=== PATIENT | male | born 1955 | race Caucasian/White ===

== ENCOUNTER → 2016-08-26 | Outpatient (REF) | payer OTHER ==
[~2016-08-26] MED LIST: /GLIM2TA OR; /LAMO15TA OR; /QUIN20TA OR; ACTO45TA OR; BYETTA SQ; DO NOT TAKE; GLUC850T OR; HYDR25TA6 OR; INSULANT SC; JANUVIA OR; LITH300T2 OR; LITH600C OR; LITHIUM CARBONATE; LITHIUM CARBONATE OR; [UNRECOGNIZED DRUG - REMARK]
== END ==
LOC: M LAB REF 13:16
PROVIDERS: ATTEND Physician Assistant Medical
DX: R30.0 Dysuria (principal)

== ENCOUNTER → 2016-10-14 | Outpatient (REF) | payer OTHER ==
[2016-10-14 12:53] LABS: ANION GAP 9 MEQ/L (8-16); BLOOD UREA NITROGEN 21 MG/DL (7-18); CALCIUM LEVEL 9.1 MG/DL (8.8-10.2); CARBON DIOXIDE LEVEL 28 MEQ/L (21-32); CHLORIDE LEVEL 103 MEQ/L (98-107); CHOLESTEROL LEVEL 231 MG/DL (<200); CREATININE FOR GFR 1.26 MG/DL (0.70-1.30); GLOMERULAR FILTRATION RATE > 60.0 (>49); GLUCOSE, FASTING 144 MG/DL (80-110); POTASSIUM SERUM 4.2 MEQ/L (3.5-5.1); SODIUM LEVEL 140 MEQ/L (136-145); TRIGLYCERIDES LEVEL 283 MG/DL (<150)
== END ==
LOC: M LABDRAW1 11:49
PROVIDERS: ATTEND Physician Assistant Medical
DX: E78.5 Hyperlipidemia, unspecified (principal); E11.8 Type 2 diabetes mellitus with unspecified complications; Z11.59 Encounter for screening for other viral diseases

== ENCOUNTER → 2017-03-09 | Outpatient (REF) | payer OTHER ==
[~2017-03-09] MED LIST changes: +ALBU83IN INH; +ALPH600C PO; +ASPI81TA85 PO; +PANT20TA PO; +TOUJ1.2I SC
[2017-03-09 14:49] LABS: ANION GAP 7 MEQ/L (8-16); BLOOD UREA NITROGEN 20 MG/DL (7-18); CALCIUM LEVEL 9.3 MG/DL (8.8-10.2); CARBON DIOXIDE LEVEL 26 MEQ/L (21-32); CHLORIDE LEVEL 102 MEQ/L (98-107); CHOLESTEROL LEVEL 203 MG/DL (<200); CREATININE FOR GFR 1.29 MG/DL (0.70-1.30); GLOMERULAR FILTRATION RATE > 60.0 (>49); GLUCOSE, FASTING 153 MG/DL (80-110); POTASSIUM SERUM 4.8 MEQ/L (3.5-5.1); SODIUM LEVEL 135 MEQ/L (136-145); TRIGLYCERIDES LEVEL 195 MG/DL (<150)
[2017-03-09 15:19] LABS: HEP C VIRUS AB SCREEN MEDICARE 0.1 INDEX (<0.8)
== END ==
LOC: M LABDRAW1 13:19
PROVIDERS: ATTEND Physician Assistant Medical
DX: E78.5 Hyperlipidemia, unspecified (principal); E11.8 Type 2 diabetes mellitus with unspecified complications; Z11.59 Encounter for screening for other viral diseases
CPT/HCPCS: 36415; 80048; 80061; 82043; G0472

== ENCOUNTER 2017-06-10 16:12 | Emergency (ER) | payer OTHER ==
[~2017-06-10] VITALS: Ht 180.3 cm; Wt 112.7 kg
[~2017-06-10 16:12] MED LIST changes: -ALBU83IN INH; -ALPH600C PO; -ASPI81TA85 PO; -PANT20TA PO; -TOUJ1.2I SC
[2017-06-10] MEDS ORDERED: ASPIRIN 81 MG CHEW TABLET PO ONE (16:45)
[2017-06-10 17:00] LABS: BASO % 0.3 % (0.0-1.0); EOS # 0.4 10^3/uL (0.0-0.50); EOS % 2.9 % (0.0-3.0); IMMATURE GRANULOCYTE % 0.4 % (0-0); LYMPH # 1.2 10^3/uL (1.5-4.5); LYMPH % 9.1 % (24.0-44.0); MEAN CORPUSCULAR HEMOGLOBIN 30.1 pg (27.0-33.0); MEAN CORPUSCULAR HGB CONC 32.7 g/dl (32.0-36.5); MONO # 1.1 10^3/uL (0.0-0.8); MONO % 8.3 % (0.0-5.0); PLATELET COUNT, AUTOMATED 268 10^3/uL (150-450); RED CELL DISTRIBUTION WIDTH 13.7 % (11.5-14.5); WHITE BLOOD COUNT 12.6 10^3/uL (4.0-10.0)
[2017-06-10] MEDS ORDERED: ASPIRIN 325 MG TAB PO ONE (17:00)
[2017-06-10] MEDS ORDERED: ALPH600C PO (17:03)
[2017-06-10] MEDS ORDERED: TOUJ1.2I SC (17:03)
[2017-06-10] MEDS ORDERED: ASPI81TA85 PO (17:03)
[2017-06-10] MEDS ORDERED: PANT20TA PO (17:04)
[2017-06-10] MEDS ORDERED: ALBU83IN INH (17:06)
[2017-06-10 17:22] LABS: INR 0.91
[2017-06-10 17:42] LABS: ANION GAP 9 MEQ/L (8-16); BLOOD UREA NITROGEN 20 MG/DL (7-18); CALCIUM LEVEL 9.4 MG/DL (8.8-10.2); CARBON DIOXIDE LEVEL 26 MEQ/L (21-32); CHLORIDE LEVEL 104 MEQ/L (98-107); CREATININE FOR GFR 1.19 MG/DL (0.70-1.30); GLOMERULAR FILTRATION RATE > 60.0 (>49); GLUCOSE, FASTING 156 MG/DL (80-110); POTASSIUM SERUM 4.6 MEQ/L (3.5-5.1); SODIUM LEVEL 139 MEQ/L (136-145)
--- NOTE | 2017-06-10 17:47 | REP ---
PORTABLE CHEST: AP portable view of the chest was performed and compared to prior study of 06/23/2015. There is mild elevation of the right hemidiaphragm. There is mild stable bibasilar fibro atelectatic change. There is no acute infiltrate. Heart is not significantly enlarged. Mediastinal silhouette is unchanged. There are multiple sternal wires present. IMPRESSION: No acute infiltrate. Signed by Burt Pollard MD 06/10/2017 07:51 P
[2017-06-10] MEDS ORDERED: HEPARIN DRIP 25,000 UNITS in APPROPRIATE DILUENT 1 EA IV SCH (18:39)
[2017-06-10] MEDS ORDERED: CLOPIDOGREL 300 MG TAB (PLAVIX) PO STA (18:39)
[2017-06-10] MEDS ORDERED: METOPROLOL SUCC *XL* 25MG TAB (TopROL *XL*) PO ONE (18:45)
[2017-06-10] MEDS ORDERED: HEPARIN SOD (PORCINE) 5000 UNITS/ML VIAL IV ONE (18:45)
[2017-06-10 19:06] VITALS: BP 193/90
[2017-06-10 19:35] VITALS: BP 183/86
--- NOTE | 2017-06-11 10:31 | ECGEPIP ---
Stationary ECG Study [facility] - ED Test Date: 2017-06-10 Pat Name: JOSETTE MONTELONGO Department: Room: - Gender: M Stain Maker: AF : 1955 Requested By: TOMER Brandon Order Number: [id number] Reading MD: Darlene Landrum Measurements Intervals [place] Rate: 74 P: 47 HI: 217 QRS: 31 QRSD: 116 T: 136 QT: 340 QTc: 377 Interpretive Statements SINUS RHYTHM WITH FIRST DEGREE AV BLOCK MODERATE INTRAVENTRICULAR CONDUCTION DELAY ST DEVIATION AND MODERATE T-WAVE ABNORMALITY, CONSIDER ANTEROLATERAL ISCHEMIA, NEW COMPARED 06/23/15 Electronically Signed On 06-11-2017 10:31:33 EDT by Darlene Landrum
== END 2017-06-10 19:40 | disposition short-term general hospital (02) ==
LOC: M ED 16:12
DX: I21.4 Non-ST elevation (NSTEMI) myocardial infarction (principal); I25.2 Old myocardial infarction; E11.9 Type 2 diabetes mellitus without complications; I10 Essential (primary) hypertension; E78.4 Other hyperlipidemia; Z79.4 Long term (current) use of insulin; Z98.61 Coronary angioplasty status

== ENCOUNTER → 2017-07-24 | Outpatient (REF) | payer OTHER ==
[~2017-07-24] MED LIST changes: +ALBU83IN INH; +ALPH600C PO; +ASPI81TA85 PO; +PANT20TA PO; +TOUJ1.2I SC
== END ==
LOC: M LABDRAW1 11:53
PROVIDERS: ATTEND Physician Assistant Medical
DX: E78.5 Hyperlipidemia, unspecified (principal)

== ENCOUNTER → 2017-12-09 | Outpatient (REF) | payer OTHER ==
[2017-12-09 12:00] LABS: BASO # 0.1 10^3/uL (0.0-0.2); BASO % 0.4 % (0.0-1.0); EOS # 0.3 10^3/uL (0.0-0.50); EOS % 2.5 % (0.0-3.0); HEMOGLOBIN 13.9 g/dl (13.5-17.5); IMMATURE GRANULOCYTE % 0.4 % (0-3.0); LYMPH # 0.9 10^3/uL (1.5-4.5); LYMPH % 8.1 % (24.0-44.0); MEAN CORPUSCULAR HEMOGLOBIN 28.6 pg (27.0-33.0); MEAN CORPUSCULAR HGB CONC 31.6 g/dl (32.0-36.5); MEAN CORPUSCULAR VOLUME 90.5 fl (80.0-96.0); MONO # 0.8 10^3/uL (0.0-0.8); MONO % 7.1 % (0.0-5.0); NEUTROPHILS # 9.4 10^3/uL (1.8-7.7); NEUTROPHILS % 81.5 % (36.0-66.0); PLATELET COUNT, AUTOMATED 269 10^3/uL (150-450); RED BLOOD COUNT 4.86 10^6/uL (4.30-6.10); RED CELL DISTRIBUTION WIDTH 13.8 % (11.5-14.5); WHITE BLOOD COUNT 11.5 10^3/uL (4.0-10.0)
[2017-12-09 12:29] LABS: FREE T4 0.79 NG/DL (0.76-1.46)
== END ==
LOC: M LABDRAW1 11:26
DX: R53.83 Other fatigue (principal)

== ENCOUNTER → 2017-12-19 | Outpatient (CLI) | payer OTHER ==
[2017-12-19 09:43] LABS: FERRITIN 30 NG/ML (26-388); IRON (FE) 83 UG/DL (65-175); PERCENT SATURATION 19.9 % (19.7-50.0); PSA SCREENING 3.39 NG/ML (< 4.0); TOTAL IRON BINDING CAPACITY 418 UG/DL (250-450)
[2017-12-21 10:31] LABS: THYROID PEROXIDASE ANTIBODY 33.4 U/ML (<60.0); VITAMIN B12 LEVEL 621 PG/ML
[2017-12-21 10:32] LABS: FOLATE > 24.0 NG/ML
== END ==
LOC: M LAB 08:37
DX: R53.83 Other fatigue (principal); R63.1 Polydipsia; R35.0 Frequency of micturition
CPT/HCPCS: 82746

== ENCOUNTER → 2017-12-31 | Outpatient (REF) | payer OTHER ==
[2017-12-31 13:40] LABS: APPEARANCE, URINE CLEAR (CLEAR); BACTERIA, URINE AUTO NEGATIVE (NEGATIVE); BILIRUBIN, URINE AUTO NEGATIVE (NEGATIVE); BLOOD, URINE BLOOD NEGATIVE (NEGATIVE); COLOR, URINE STRAW (YELLOW); GLUCOSE, URINE (UA) AUTO 3+ mg/dL (NEGATIVE); KETONE, URINE AUTO NEGATIVE (NEGATIVE); LEUKOCYTE ESTERASE, URINE AUTO NEGATIVE (NEGATIVE); MUCUS, URINE SMALL (NEGATIVE); NITRITE, URINE AUTO NEGATIVE (NEGATIVE); PROTEIN, URINE AUTO NEGATIVE (NEGATIVE); RBC, URINE AUTO 0 /HPF (0-3); SPECIFIC GRAVITY URINE AUTO 1.002 (1.002-1.035); SQUAMOUS EPITHELIAL CELL UR AU 0 /HPF (0-6); UROBILINOGEN, URINE AUTO 0.2 mg/dL (0.0-2.0); WBC, URINE AUTO 1 /HPF (0-3)
== END ==
LOC: M SMT 13:03
DX: R35.0 Frequency of micturition (principal)

== ENCOUNTER → 2018-01-27 | Outpatient (REF) | payer OTHER ==
[2018-01-27 13:14] LABS: APPEARANCE, URINE CLEAR (CLEAR); BACTERIA, URINE AUTO NEGATIVE (NEGATIVE); BILIRUBIN, URINE AUTO NEGATIVE (NEGATIVE); BLOOD, URINE BLOOD NEGATIVE (NEGATIVE); COLOR, URINE STRAW (YELLOW); GLUCOSE, URINE (UA) AUTO 3+ mg/dL (NEGATIVE); KETONE, URINE AUTO NEGATIVE (NEGATIVE); LEUKOCYTE ESTERASE, URINE AUTO NEGATIVE (NEGATIVE); NITRITE, URINE AUTO NEGATIVE (NEGATIVE); PROTEIN, URINE AUTO NEGATIVE (NEGATIVE); RBC, URINE AUTO 0 /HPF (0-3); SPECIFIC GRAVITY URINE AUTO 1.006 (1.002-1.035); SQUAMOUS EPITHELIAL CELL UR AU 0 /HPF (0-6); UROBILINOGEN, URINE AUTO 0.2 mg/dL (0.0-2.0); WBC, URINE AUTO 2 /HPF (0-3)
== END ==
LOC: M SMT 12:56
DX: R33.9 Retention of urine, unspecified (principal); R30.0 Dysuria

== ENCOUNTER → 2018-02-22 | Outpatient (REF) | payer OTHER | LOC: M LAB REF 17:34 | DX: R35.0 Frequency of micturition (principal) ==

== ENCOUNTER → 2018-03-04 | Outpatient (REF) | payer OTHER | LOC: M LAB REF 13:28 | DX: R35.0 Frequency of micturition (principal) ==

== ENCOUNTER → 2018-04-08 | Outpatient (REF) | payer OTHER ==
[2018-04-08 14:37] LABS: HEMATOCRIT 43.7 % (42.0-52.0); MEAN CORPUSCULAR HEMOGLOBIN 29.5 pg (27.0-33.0); MEAN CORPUSCULAR VOLUME 92.2 fl (80.0-96.0); PLATELET COUNT, AUTOMATED 259 10^3/uL (150-450); RED BLOOD COUNT 4.74 10^6/uL (4.30-6.10); RED CELL DISTRIBUTION WIDTH 13.6 % (11.5-14.5); WHITE BLOOD COUNT 11.2 10^3/uL (4.0-10.0)
[2018-04-08 14:59] LABS: GLOMERULAR FILTRATION RATE 54.8 (>49); LITHIUM LEVEL 0.97 MEQ/L (0.60-1.20)
[2018-04-08 14:59] LABS: BLOOD UREA NITROGEN 26 MG/DL (7-18)
== END ==
LOC: M LABDRAW1 13:58
DX: Z79.899 Other long term (current) drug therapy (principal)

== ENCOUNTER → 2018-07-06 | Outpatient (REF) | payer OTHER ==
[2018-07-06 10:41] LABS: CHOLESTEROL LEVEL 193 MG/DL (<200); CHOLESTEROL RISK RATIO 4.595 (<5); HDL CHOLESTEROL 42 MG/DL (>40); LDL CHOLESTEROL 110 MG/DL (<100); NON-HDL-C 151 MG/DL; TRIGLYCERIDES LEVEL 207 MG/DL (<150)
== END ==
LOC: M LABDRAW1 10:08
DX: E78.5 Hyperlipidemia, unspecified (principal)

== ENCOUNTER → 2018-09-02 | Outpatient (REF) | payer OTHER ==
[~2018-09-02] MED LIST changes: -PANT20TA PO; +PANT20TA2 PO
[2018-09-02 18:40] LABS: BLOOD UREA NITROGEN 16 MG/DL (7-18); CALCIUM LEVEL 9.4 MG/DL (8.8-10.2); CARBON DIOXIDE LEVEL 29 MEQ/L (21-32); CHLORIDE LEVEL 104 MEQ/L (98-107); CREATININE FOR GFR 1.25 MG/DL (0.70-1.30); GLOMERULAR FILTRATION RATE > 60.0 (>49); GLUCOSE, FASTING 103 MG/DL (70-100); POTASSIUM SERUM 4.7 MEQ/L (3.5-5.1); SODIUM LEVEL 138 MEQ/L (136-145)
== END ==
LOC: M LABDRWAD 17:17
PROVIDERS: ATTEND Specialist
DX: R33.9 Retention of urine, unspecified (principal)

== ENCOUNTER → 2018-09-07 | Outpatient (CLI) | payer OTHER ==
--- NOTE | 2018-09-08 08:19 | REP ---
Clinical: Urinary retention. Technique: Real time vázquez scale ultrasound examination using curved array transducer. Findings: The bilateral kidneys are mildly echogenic with increased central medullary fat suggesting chronic medical renal disease. Renovascular calcifications are also suggested bilaterally. No hydronephrosis, obvious nephrolithiasis, cystic or renal mass lesions are identified. Right kidney measures 12.3 x 5.8 x 5.1 cm. Left kidney measures 12.6 x 4.9 x 6.4 cm. The prostate gland is enlarged and measures 4.1 x 4.2 x 5.9 cm. The bladder is grossly unremarkable currently measuring 11.2 x 5.9 x 7.2 cm. Impression: Findings consistent with chronic medical renal disease. Electronically Signed by Howie Dyer MD 09/08/2018 08:10 A
== END ==
LOC: M RAD 09:58
PROVIDERS: ATTEND Specialist
DX: N18.9 Chronic kidney disease, unspecified (principal); R33.9 Retention of urine, unspecified

== ENCOUNTER → 2018-12-29 | Outpatient (REF) | payer OTHER ==
[~2018-12-29] MED LIST changes: -/GLIM2TA OR; -/LAMO15TA OR; -/QUIN20TA OR; +ACCU1TAB2 OR; +AMAR1TAB5 OR; +LAMI1TAB8 OR
[2018-12-29 11:13] LABS: HEMATOCRIT 45.1 % (42.0-52.0); HEMOGLOBIN 14.4 g/dl (13.5-17.5); MEAN CORPUSCULAR HEMOGLOBIN 29.3 pg (27.0-33.0); MEAN CORPUSCULAR HGB CONC 31.9 g/dl (32.0-36.5); MEAN CORPUSCULAR VOLUME 91.9 fl (80.0-96.0); PLATELET COUNT, AUTOMATED 279 10^3/uL (150-450); RED BLOOD COUNT 4.91 10^6/uL (4.30-6.10); WHITE BLOOD COUNT 14.6 10^3/uL (4.0-10.0)
[2018-12-29 12:52] LABS: BLOOD UREA NITROGEN 25 MG/DL (7-18); CREATININE FOR GFR 1.24 MG/DL (0.70-1.30); GLOMERULAR FILTRATION RATE > 60.0 (>49)
[2018-12-29 13:15] LABS: LITHIUM LEVEL 1.27 MEQ/L (0.60-1.20)
== END ==
LOC: M LABDRAW1 10:49
PROVIDERS: ATTEND Psychiatry & Neurology Psychiatry
DX: Z79.899 Other long term (current) drug therapy (principal)

== ENCOUNTER → 2019-01-13 | Outpatient (REF) | payer OTHER ==
[2019-01-13 14:04] LABS: CREATININE, URINE 21.7 MG/DL; MALB URINE SIEMENS 46.6 MG/L; MAU/CREAT RATIO 214.7 MCG/MG (0.0-30.0)
== END ==
LOC: M LABDRAW1 08:47
PROVIDERS: ATTEND Nurse Practitioner Family
DX: E11.65 Type 2 diabetes mellitus with hyperglycemia (principal)

== ENCOUNTER → 2019-04-04 | Outpatient (REF) | payer OTHER ==
[2019-04-04 19:33] LABS: CREATININE FOR GFR 1.36 MG/DL (0.70-1.30); GLOMERULAR FILTRATION RATE 56.5 (>49); LITHIUM LEVEL 0.86 MEQ/L (0.60-1.20)
== END ==
LOC: M LABDRAW1 18:49
PROVIDERS: ATTEND Psychiatry & Neurology Psychiatry
DX: Z79.899 Other long term (current) drug therapy (principal)

== ENCOUNTER 2019-05-26 16:06 | Emergency (ER) | payer OTHER ==
[~2019-05-26] VITALS: Ht 177.8 cm; Wt 110.4 kg
[2019-05-26] MEDS ORDERED: METF-791 (16:15)
[2019-05-26] MEDS ORDERED: LAMO200T2 (16:15)
[2019-05-26] MEDS ORDERED: NITROGLYCERIN 0.4 MG SUBL TABLET SL PRN (16:45)
[2019-05-26] MEDS ORDERED: ASPIRIN 81 MG CHEW TABLET PO ONE (16:45)
[2019-05-26 17:03] LABS: BASO # 0.1 10^3/uL (0.0-0.2); BASO % 0.6 % (0.0-1.0); EOS # 0.4 10^3/uL (0.0-0.5); EOS % 2.6 % (0.0-3.0); HEMATOCRIT 41.9 % (42.0-52.0); HEMOGLOBIN 13.4 g/dl (13.5-17.5); LYMPH # 1.1 10^3/uL (1.5-5.0); MEAN CORPUSCULAR HEMOGLOBIN 29.9 pg (27.0-33.0); MEAN CORPUSCULAR VOLUME 93.5 fl (80.0-96.0); MONO # 1.2 10^3/uL (0.0-0.8); MONO % 8.3 % (0.0-5.0); NEUTROPHILS # 11.3 10^3/uL (1.5-8.5); NEUTROPHILS % 79.9 % (36.0-66.0); PLATELET COUNT, AUTOMATED 273 10^3/uL (150-450); RED BLOOD COUNT 4.48 10^6/uL (4.30-6.10); WHITE BLOOD COUNT 14.1 10^3/uL (4.0-10.0)
--- NOTE | 2019-05-26 17:10 | REP ---
Chest x-ray: Two views. History: Chest pain. Comparison chest x-ray: June 10, 2017. Findings: The patient is status post prior median sternotomy. Monitoring electrodes are seen. The right hemidiaphragm is somewhat elevated unchanged. The heart is not felt to be enlarged. Pulmonary vasculature is not increased. No infiltrate is seen. Pleural angles are sharp. Impression: Prior sternotomy. Somewhat elevated right hemidiaphragm. No acute disease. Electronically Signed by Ricky George MD 05/27/2019 08:35 A
[2019-05-26 17:27] LABS: ALBUMIN 3.7 GM/DL (3.2-5.2); ALT/SGPT 29 U/L (12-78); BILIRUBIN,DIRECT < 0.1 MG/DL (0.0-0.2); BILIRUBIN,TOTAL 0.3 MG/DL (0.2-1.0); BLOOD UREA NITROGEN 18 MG/DL (7-18); CALCIUM LEVEL 9.3 MG/DL (8.8-10.2); CARBON DIOXIDE LEVEL 26 MEQ/L (21-32); CHLORIDE LEVEL 106 MEQ/L (98-107); CK-MB VALUE MASS 3.1 NG/ML (<3.6); CPK CREATINE PHOSPHOKINASE 125 U/L (39-308); CREATININE FOR GFR 1.25 MG/DL (0.70-1.30); FREE T4 0.75 NG/DL (0.76-1.46); GLOMERULAR FILTRATION RATE > 60.0 (>49); GLUCOSE, FASTING 98 MG/DL (70-100); LIPASE 77 U/L (73-393); MB/CK RELATIVE INDEX 2.48 (< OR =4); POTASSIUM SERUM 4.4 MEQ/L (3.5-5.1); SODIUM LEVEL 139 MEQ/L (136-145); TOTAL PROTEIN 7.2 GM/DL (6.4-8.2); TROPONIN I < 0.02 NG/ML (< 0.10)
[2019-05-26 17:31] LABS: INR 0.97; PROTHROMBIN TIME 12.5 SECONDS (11.8-14.0)
[2019-05-26 17:32] LABS: PARTIAL THROMBOPLASTIN TIME 28.8 SECONDS (25.0-38.4)
[2019-05-26] MEDS ORDERED: KETOROLAC 30 MG/ML VIAL (J1885) IV ONE (18:45)
[2019-05-26 18:54] LABS: LITHIUM LEVEL 0.66 MEQ/L (0.60-1.20)
[2019-05-26] MEDS ORDERED: SUCR1TA PO (19:21)
[2019-05-26 19:22] VITALS: BP 158/74
--- NOTE | 2019-05-27 07:35 | ECGEPIP ---
[facility] - ED Test Date: 2019-05-26 Pat Name: JOSETTE MONTELONGO Department: Room: - Gender: Male Export Manager: juan antonio : 1955 Requested By: TOMER Brandon Order Number: [id number] Reading MD: Harpal Fragoso Measurements Intervals [place] Rate: 80 P: 46 OR: 199 QRS: 25 QRSD: 114 T: 116 QT: 382 QTc: 441 Interpretive Statements SINUS RHYTHM MODERATE INTRAVENTRICULAR CONDUCTION DELAY ST DEVIATION AND MODERATE T-WAVE ABNORMALITY, CONSIDER ANTEROLATERAL ISCHEMIA SIMILAR TO Electronically Signed on 05-27-2019 7:34:45 EDT by Harpal Fragoso
== END 2019-05-26 19:32 | disposition home or self-care (01) ==
LOC: M ED 16:06
DX: R07.89 Other chest pain (principal); I45.89 Other specified conduction disorders; I25.2 Old myocardial infarction; E11.9 Type 2 diabetes mellitus without complications; I10 Essential (primary) hypertension; E78.5 Hyperlipidemia, unspecified; F31.9 Bipolar disorder, unspecified; Z95.5 Presence of coronary angioplasty implant and graft; Z79.82 Long term (current) use of aspirin; Z79.4 Long term (current) use of insulin; Z79.899 Other long term (current) drug therapy; Z91.013 Allergy to seafood; Z91.89 Other specified personal risk factors, not elsewhere classified
CPT/HCPCS: 71046; 80048; 80076; 80178; 82550; 82553; 83690; 84439; 84443; 84484; 85025; 85610; 85730; 93005; 93041; 94760; 96374; 99284; J1885

== ENCOUNTER → 2019-06-09 | Outpatient (REF) | payer OTHER ==
[~2019-06-09] MED LIST changes: +LAMO200T2; +METF-791; +SUCR1TA PO
[2019-06-09 16:05] LABS: CHOLESTEROL LEVEL 269 MG/DL (<200); CHOLESTEROL RISK RATIO 6.255 (<5); HDL CHOLESTEROL 43 MG/DL (>40); NON-HDL-C 226 MG/DL; TRIGLYCERIDES LEVEL 813 MG/DL (<150)
[2019-06-09 16:14] LABS: CREATININE, URINE < 13.0 MG/DL; MALB URINE SIEMENS 27.6 MG/L
== END ==
LOC: M LABDRAW1 13:42
PROVIDERS: ATTEND Family Medicine
DX: I25.709 Atherosclerosis of coronary artery bypass graft(s), unspecified, with unspecified angina pectoris (principal); E11.69 Type 2 diabetes mellitus with other specified complication

== ENCOUNTER → 2019-08-03 | Outpatient (REF) | payer OTHER ==
[~2019-08-03] MED LIST changes: -LAMO200T2; +LAMO200T3
[2019-08-03 11:43] LABS: CHOLESTEROL RISK RATIO 4.565 (<5)
== END ==
LOC: M LABDRAW1 09:02
PROVIDERS: ATTEND Physician Assistant Medical
DX: E78.2 Mixed hyperlipidemia (principal)

== ENCOUNTER → 2020-06-30 | Outpatient (CLI) | payer OTHER ==
[~2020-06-30] MED LIST changes: -ASPI81TA85 PO; +ASPI81TA86 PO; +BYDU2INJ7; +FINA5TAB2; +HUMA50IN4; +INVO300T; -METF-791; +METF-838; +METO50TA7; -PANT20TA2 PO; +PANT20TA6 PO; +TAMS1CAP17; +VASC1CAP2
[2020-06-30 09:41] LABS: BASO # 0.1 10^3/uL (0.0-0.2); BASO % 0.5 % (0.0-1.0); EOS # 0.4 10^3/uL (0.0-0.5); EOS % 3.3 % (0.0-3.0); HEMATOCRIT 39.8 % (42.0-52.0); HEMOGLOBIN 12.6 g/dl (13.5-17.5); LYMPH # 0.9 10^3/uL (1.5-5.0); LYMPH % 6.9 % (24.0-44.0); MEAN CORPUSCULAR HEMOGLOBIN 29.7 pg (27.0-33.0); MEAN CORPUSCULAR HGB CONC 31.7 g/dl (32.0-36.5); MEAN CORPUSCULAR VOLUME 93.9 fl (80.0-96.0); MONO # 0.8 10^3/uL (0.0-0.8); MONO % 6.5 % (0.0-5.0); NEUTROPHILS # 10.6 10^3/uL (1.5-8.5); NEUTROPHILS % 82.3 % (36.0-66.0); PLATELET COUNT, AUTOMATED 228 10^3/uL (150-450); RED BLOOD COUNT 4.24 10^6/uL (4.30-6.10); WHITE BLOOD COUNT 12.9 10^3/uL (4.0-10.0)
[2020-06-30 10:19] LABS: ALBUMIN 3.7 GM/DL (3.2-5.2); BILIRUBIN,TOTAL 0.5 MG/DL (0.2-1.0); CALCIUM LEVEL 9.2 MG/DL (8.8-10.2); CREATININE FOR GFR 1.44 MG/DL (0.70-1.30); FREE T4 0.74 NG/DL (0.76-1.46); GLOMERULAR FILTRATION RATE 52.7 (>49); POTASSIUM SERUM 4.2 MEQ/L (3.5-5.1); THYROID STIMULATING HORMONE 1.62 uIU/ML (0.358-3.740)
[2020-07-02 12:12] LABS: FOLATE 13.8 NG/ML
== END ==
LOC: M LAB 09:02
PROVIDERS: ATTEND Nurse Practitioner Family
DX: R25.1 Tremor, unspecified (principal)

== ENCOUNTER 2020-07-11 19:04 | Inpatient (IN) | payer OTHER ==
[~2020-07-11] VITALS: Ht 180.3 cm; Wt 97.5 kg
[2020-07-11] MEDS: NS 1,000 ML IV SCH (00:30)
--- NOTE | 2020-07-11 20:52 | REPVR ---
PROCEDURE INFORMATION: Exam: CT Head Without Contrast Exam date and time: 07/11/2020 8:30 PM Age: 64 years old Clinical indication: Altered mental status/memory loss TECHNIQUE: Imaging protocol: Computed tomography of the head without contrast. Radiation optimization: All CT scans at this facility use at least one of these dose optimization techniques: automated exposure control; mA and/or kV adjustment per patient size (includes targeted exams where dose is matched to clinical indication); or iterative reconstruction. COMPARISON: No relevant prior studies available. FINDINGS: Brain: There is mild age related parenchymal volume loss. Mild white matter changes are demonstrated consistent with age related small vessel white matter ischemic changes. Cerebral ventricles: No ventriculomegaly. Bones/joints: Unremarkable. No acute fracture. Paranasal sinuses: Visualized sinuses are unremarkable. No fluid levels. Mastoid air cells: Visualized mastoid air cells are well aerated. Soft tissues: Unremarkable. IMPRESSION: 1. There is mild age related parenchymal volume loss. Mild white matter changes are demonstrated consistent with age related small vessel white matter ischemic changes. 2. No acute findings. Electronically signed by: Manuel Richardson On 07/11/2020 20:52:23 PM
--- NOTE | 2020-07-11 21:02 | REPVR ---
PROCEDURE INFORMATION: Exam: XR Chest, 1 View Exam date and time: 07/11/2020 8:56 PM Age: 64 years old Clinical indication: Chest pain; Additional info: Altered mental status TECHNIQUE: Imaging protocol: XR of the chest Views: 1 view. COMPARISON: CR PORTABLE CHEST X-RAY 12/21/2019 6:15 AM FINDINGS: Lungs: Calcific densities at the left lung base may represent pleural calcifications. Lungs otherwise clear. Pleural space: Unremarkable. No pleural effusion. No pneumothorax. Heart/Mediastinum: Unremarkable. No cardiomegaly. Bones/joints: Status post sternotomy. IMPRESSION: No acute findings. No significant interval change. Electronically signed by: Manuel Richardson On 07/11/2020 21:02:33 PM
[2020-07-11 21:07] LABS: BASO # 0.1 10^3/uL (0.0-0.2); BASO % 0.4 % (0.0-1.0); EOS # 0.2 10^3/uL (0.0-0.5); EOS % 0.8 % (0.0-3.0); HEMATOCRIT 39.9 % (42.0-52.0); HEMOGLOBIN 12.3 g/dl (13.5-17.5); LYMPH # 0.8 10^3/uL (1.5-5.0); LYMPH % 3.9 % (24.0-44.0); MEAN CORPUSCULAR HEMOGLOBIN 29.1 pg (27.0-33.0); MEAN CORPUSCULAR HGB CONC 30.8 g/dl (32.0-36.5); MEAN CORPUSCULAR VOLUME 94.5 fl (80.0-96.0); MONO # 0.8 10^3/uL (0.0-0.8); MONO % 3.9 % (0.0-5.0); NEUTROPHILS # 17.8 10^3/uL (1.5-8.5); NEUTROPHILS % 90.3 % (36.0-66.0); PLATELET COUNT, AUTOMATED 240 10^3/uL (150-450); RED BLOOD COUNT 4.22 10^6/uL (4.30-6.10); WHITE BLOOD COUNT 19.7 10^3/uL (4.0-10.0)
[2020-07-11 21:43] LABS: ACETAMINOPHEN LEVEL < 2.0 UG/ML (10.0-30.0); ALBUMIN 2.5 GM/DL (3.2-5.2); ALT/SGPT 21 U/L (12-78); BILIRUBIN,DIRECT < 0.1 MG/DL (0.0-0.2); BILIRUBIN,TOTAL 0.2 MG/DL (0.2-1.0); BLOOD UREA NITROGEN 18 MG/DL (7-18); CALCIUM LEVEL 9.2 MG/DL (8.8-10.2); CARBON DIOXIDE LEVEL 29 MEQ/L (21-32); CHLORIDE LEVEL 104 MEQ/L (98-107); CK-MB VALUE MASS 3.6 NG/ML (<3.6); CPK CREATINE PHOSPHOKINASE 102 U/L (39-308); CREATININE FOR GFR 1.49 MG/DL (0.70-1.30); ETHYL ALCOHOL (ETHANOL) < 0.003 % (0.000-0.010); GLOMERULAR FILTRATION RATE 50.7 (>49); GLUCOSE, FASTING 105 MG/DL (70-100); MB/CK RELATIVE INDEX 3.53 (< OR =4); POTASSIUM SERUM 4.7 MEQ/L (3.5-5.1); SALICYLATE LEVEL < 1.7 MG/DL (5.0-30.0); SODIUM LEVEL 136 MEQ/L (136-145); TOTAL PROTEIN 6.6 GM/DL (6.4-8.2); TROPONIN I < 0.02 NG/ML (< 0.10)
[2020-07-11 22:02] LABS: AMPHETAMINES LEVEL URINE NEGATIVE (NEGATIVE); BARBITURATES URINE NEGATIVE (NEGATIVE); BENZODIAZEPINES URINE NEGATIVE (NEGATIVE); CANNABINOIDS URINE NEGATIVE (NEGATIVE); COCAINE METABOLITE URINE NEGATIVE (NEGATIVE); METHADONE URINE NEGATIVE (NEGATIVE); OPIATES URINE NEGATIVE (NEGATIVE); PHENCYCLIDINE URINE NEGATIVE (NEGATIVE)
[2020-07-11] MEDS ORDERED: LITH300C PO (22:50)
[2020-07-11] MEDS ORDERED: INVO300T PO (22:50)
[2020-07-11] MEDS ORDERED: METF-838 PO (22:50)
[2020-07-11] MEDS ORDERED: HUMA50IN4 SC (22:50)
[2020-07-11] MEDS ORDERED: BYDU2INJ7 SC (22:50)
[2020-07-11] MEDS ORDERED: D31000TA2 PO (22:50)
[2020-07-11] MEDS ORDERED: ASPI-161 PO (22:50)
[2020-07-11] MEDS ORDERED: QUIN1TAB4 PO (22:50)
[2020-07-11] MEDS ORDERED: ALBU83IN INH (22:50)
[2020-07-11] MEDS ORDERED: AMLO1TAB25 PO (22:50)
[2020-07-11] MEDS ORDERED: METO50TA7 PO (22:50)
[2020-07-11] MEDS ORDERED: FLOM0.4C39 PO (22:50)
[2020-07-11] MEDS ORDERED: LAMO200T3 PO (22:50)
[2020-07-11] MEDS ORDERED: FISH1000 PO (22:50)
--- NOTE | 2020-07-11 23:02 | HPEPDOC ---
[facility] Medical History & Physical Date of Admission Jul 11, 2020 Date of Service: Jul 11, 2020 Attending Physician: CESILIA PETERS MD History and Physical CHIEF COMPLAINT: Weakness, fatigue HISTORY OF PRESENT ILLNESS: Patient is a 64-year-old male, history of bipolar disorder, hypertension, hyperlipidemia, CVD status post stent, IDDM, presented to the ED the evening of 07/11/20 stating "I think I had a stroke at 7 PM". Patient reported "becoming weak", having to have his hold him up. He also reported intermittent "flashes of black and white". He reports a 3 month history of diarrhea and loose stools which have coincided with his progressive weakness, fatigue and "mental fog". Patient states that this began when he was instructed to take cholestyramine for his cholesterol. His medication is currently not on his home list. Patient takes lithium and lamotrigine for his bipolar 1 disorder and has remained stable on the current dose for over a year and a half. He reports increasing mental fogginess and vision changes over the preceding 3 days. He reports that he takes his medication regularly and does not miss doses or take extra. Denies recent mood changes including florina or depression, no thoughts of self-harm. On presentation, patient's family afebrile, pulse 59, respiratory rate of 18, BP of 160/73 and maintaining oxygen saturation of 96% on room air. Laboratory evaluation found a CBC of 19.7, H/H of 12.3/39.9 MCV of 94.5, normal platelet count. Sodium potassium and chloride were within normal limits. BUN/creatinine of 18/1.49, GFR of 50.7. Kidney function appears to be patients baseline. Mild elevation in alkaline phos of 118. Patient was found to have extremely high levels of lithium, 2.9, reference range 0.6-1.2. U tox negative UA negative. Imaging of the patient's head and chest were performed without any acute findings. Of historical note, patient was also admitted with lithium toxicity back in 2009 following a similar episode of diarrhea. Patient symptoms resolved with appropriate hydration and he has not had any issues with his lithium levels since. PAST MEDICAL HISTORY: Aortic stenosis Bipolar 1 IDDM Hypertension Hypercholesterolemia BPH PAST SURGICAL HISTORY: Colonoscopy Appendectomy Aortic valve and aneurysm repair, 2013 Cardiac cath with stent placement, 2017 x2, 2018 x5 SOCIAL HISTORY: Patient is with 2 children since moved out of the house. 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 He denies any smoking or alcohol use. No history of illicit drugs. Denies recent travel or known exposure. FAMILY HISTORY: Father: Diabetes, prostate cancer, unknown skin cancer Mother: Diabetes, CVA Siblings: Sister with unknown skin cancer Children: Healthy ALLERGIES: Iodine, shellfish REVIEW OF SYSTEMS: CONSTITUTIONAL: Denies any recent fevers, chills, night sweats, changes in weight. His appetite has remained stable. HEENT: Intermittent, nonspecific headaches, none within the last 3 days. Does report vision changes as discussed above. Denies mike dizziness or vertiginous symptoms, no hearing changes, no difficulty swallowing. CARDIOVASCULAR: No chest pain, palpitations or an appropriate tachycardia RESPIRATORY: Denies any shortness of breath, cough, wheeze GASTROINTESTINAL: Reports a three-month history of diarrhea/loose stools GENITOURINARY: Has any difficulty urinating. SKIN: No new skin changes or skin lesions MUSCULOSKELETAL: Reports increasing weakness in his lower extremities bilaterally and equally particularly over the last few days. NEUROLOGICAL: Denies any numbness or tingling PSYCHIATRIC: Reports that his mood has remained stable, without any recent bouts of depression or florina. HOME MEDICATIONS: Please see below. PHYSICAL EXAMINATION: VITAL SIGNS: See below GENERAL APPEARANCE: Patient was interviewed and examined in the emergency department. Patient was found to be laying comfortably in bed speaking with nursing staff. Patient was in no acute distress, conversant and able to participate in the physical examination. HEENT: Normocephalic, atraumatic, EOMI, PERRLA, sclera are nonicteric without conjunctival injection. Mucous membranes are moist. No nasal congestion appreciated. CARDIOVASCULAR: Regular rate and rhythm, murmur consistent with aortic valvulopathy appreciated LUNGS: Limited secondary to body habitus, with fair aeration. No appreciable wheezes rales or rhonchi ABDOMEN: Obese, nondistended, nontender, bowel sounds are active MUSCULOSKELETAL: No appreciable joint swelling. EXTREMITIES: 4-5 strength in both upper and lower extremities. Peripheral sensation is intact as is sharp/dull discrimination. No tremors or difficulty with finger to nose. Very trace bilateral lower extremity edema, no calf tenderness. NEUROLOGICAL: Awake, alert, oriented to person, place and time. Cranial nerves II through XII are grossly intact. PSYCHIATRIC: Mood and affect are appropriate. Patient does not appear manic or depressed. Speech is of regular rate, volume and possibly. No psychomotor agitation. LABORATORY DATA: See below. IMAGING: Chest x-ray (07/11/20): No acute findings. No significant interval change. Head CT (07/11/20): There is mild age-related parenchymal volume loss, mild white matter changes are demonstrated consistent with age-related small vessel white matter ischemic changes. No acute findings. MICROBIOLOGY: Please see below. ASSESSMENT: Patient is a 64-year-old male, past medical history significant for type older one, hypertension, diabetes, aortic stenosis with valve repair, CAD status post stent placement 7, who presented to the emergency department this evening with chief complaint of progressively worsening weakness and lethargy over the past 3 months. He states the symptoms have come inside with the onset of persistent loose stools with diarrhea. Emergency department, patient was found to be lithium toxic with a value of 2.9. Reports taking his medication as prescribed. Patient is stable on his current dose for over a year and a half. PLAN: #Poipu toxicity, suspect [id number] -Suspect worsening toxicity over the last 3 month corresponding with increased diarrhea and loose stools secondary to cholestyramine use. -Li level of 2.9, (0.6-1.2), home dose of 1500mg QD, reports being stable on this dose >1.5 years. -No baseline EKG changes. Tox screen negative. -IVF at a rate of 1.5x maintenance, hold Poipu, no diuretics. -Monitor Electrolytes, renal function Q6H -Repeat lithium level at 0200. Anticipate decline. If continued rise, consider acute ingestion. -PCU with telemetry. -The above plan was confirmed with Latrice at Poison Control at 2330. #Loose stools -Believed secondary to initiation of cholestyramine. -Highly suspect patient's irregular bowel movements have been playing a role in his lithium toxicity. #Isolated leukocytosis -White cell count of 19.7, high neutrophil predominance. -Lactic acid negative, blood cultures and progress and tone and pending. -UA, chest x-ray without signs of infection. Patient Has remained afebrile. -Continue to monitor. #Bipolar I -Patient has remained stable on current regimen for >1.5 years. -No recent florina/depressive episodes. Mood and affect congruent at time of admission. -Will hold lithium given toxicity. -Continue with home Lamotrigine. -Consider involving psychiatry as patient's regimen may require adjustment. Hypertension -Continue patient's home medications -Metoprolol, amlodipine CKD III -BUN/creatinine of 18/1.49, GFR of 50.7. -Kidney function appears to be patients baseline. -Given lithium toxicity, plan to monitor renal function Q6H as above. BPH -Continue home dose of tamsulosin #DMII -Hold oral medications -AC/HS, SSI, A1c, Diabetic diet and education CODE STATUS: FULL CODE DVT PROPHYLAXIS: TEDs/Seq [place] score of 1 DISPOSITION: Anticipate 2 night stay Vital Signs Vital Signs Date Time Temp Pulse Resp B/P (MAP) Pulse Ox O2 Delivery O2 Flow Rate FiO2 07/11/20 21:30 53 20 186/83 (117) 97 Room Air 07/11/20 20:30 98.0 Laboratory Data Labs 24H Laboratory Tests 2 07/11/20 20:42: Immature Granulocyte % (Auto) 0.7, Neutrophils (%) (Auto) 90.3H, Lymphocytes (%) (Auto) 3.9L, Monocytes (%) (Auto) 3.9, Eosinophils (%) (Auto) 0.8, Basophils (%) (Auto) 0.4, Neutrophils # (Auto) 17.8H, Lymphocytes # (Auto) 0.8L, Monocytes # (Auto) 0.8, Eosinophils # (Auto) 0.2, Basophils # (Auto) 0.1, Nucleated Red Blood Cells % (auto) 0.0, Anion Gap 3L, Glomerular Filtration Rate 50.7, Calcium Level 9.2, Total Bilirubin 0.2, Direct Bilirubin < 0.1, Aspartate Amino Transf ( AST/SGOT) 8, Alanine Aminotransferase (ALT/SGPT) 21, Alkaline Phosphatase 118H, Ammonia 13, Total Creatine Kinase 102, Creatine Kinase MB 3.6, Creatine Kinase MB Relative Index 3.53, Troponin I < 0.02, Total Protein 6.6, Albumin 2.5L, Albumin/Globulin Ratio 0.6, Thyroid Stimulating Hormone (TSH) 1.630, Salicylates Level < 1.7L, Acetaminophen Level < 2.0L, [place] Level 2.90*H, Ethyl Alcohol Level < 0.003 07/11/20 21:22: Urine Color STRAW, Urine Appearance CLEAR, Urine pH 7.0, Urine Specific [employer] 1.002, Urine Protein 1+H, Urine Glucose (UA) 3+H, Urine Ketones NEGATIVE, Urine Blood NEGATIVE, Urine Nitrite NEGATIVE, Urine Bilirubin NEGATIVE, Urine Urobilinogen 0.2, Urine Leukocyte Esterase NEGATIVE, Urine WBC (Auto) 0, Urine RBC (Auto) 0, Urine Hyaline Casts (Auto) 0, Urine Bacteria (Auto) NEGATIVE, Urine Squamous Epithelial Cells 0, Urine Sperm (Auto) , Urine Opiates Screen NEGATIVE, Urine Methadone Screen NEGATIVE, Urine Barbiturates Screen NEGATIVE, Urine Phencyclidine Screen NEGATIVE, Urine Amphetamines Screen NEGATIVE, Urine Benzodiazepines Screen NEGATIVE, Urine Cocaine Metabolite Screen NEGATIVE, Urine Cannabinoids Screen NEGATIVE 07/11/20 21:35: Coronavirus (COVID-19)(PCR) NEGATIVE CBC/BMP Laboratory Tests 07/11/20 20:42 Home Medications Scheduled Alpha Lipoic Acid (Alpha Lipoic Acid) 600 Mg Cap, 600 MG PO BID Amlodipine Besylate (Amlodipine Besylate) 10 Mg Tablet, 10 MG PO QHS Aspirin (Aspirin EC) 81 Mg Tablet.dr, 81 MG PO DAILY Canagliflozin (Invokana) 300 Mg Tablet, 300 MG PO DAILY Cholecalciferol (Vitamin D3) (Vitamin D3) 1,000 Unit Tablet, 1,000 UNITS PO QHS Exenatide Microspheres (Bydureon Bcise) 2 Mg/0.85 Ml Auto.injct, 2 MG SC 1XWK TAKES ON THURSDAY Insulin Glargine,Hum.rec.anlog (Toujeo Solostar) 300 Unit/Ml Inj, 100 UNIT SC QHS Insulin Lispro (Humalog Kwikpen U-200) 200 Unit/1 Ml Insuln.pen, 1 DOSE SC PC PER SLIDING SCALE Lamotrigine (Lamotrigine) 200 Mg Tablet, 200 MG PO QHS Po[place]u Carbonate (Poipu Carbonate) 300 Mg Capsule, 1,500 MG PO QHS Metformin HCl (Metformin HCl ER) 500 Mg Tab.er.24h, 1,000 MG PO BID Metoprolol Tartrate (Metoprolol Tartrate) 50 Mg Tablet, 75 MG PO BID [place]-3 Fatty Acids/Fish Oil (Fish Oil 1,000 mg Capsule) 1 Each Capsule, 1,000 MG PO DAILY Quinapril Hcl (Quinapril HCl) 40 Mg Tablet, 40 MG PO QHS Tamsulosin HCl (Flomax) 0.4 Mg Capsule, 0.4 MG PO QHS Scheduled PRN Albuterol Sulf (Albuterol Sulfate) 2.5 Mg/3 Ml Vial.neb, 2.5 MG INH QID PRN for SHORTNESS OF BREATH Allergies Coded Allergies: iodine (Verified Allergy, Unknown, 05/26/19) shellfish derived (Verified Allergy, Unknown, 05/26/19) A-FIB/CHADSVASC A-FIB History Current/History of A-Fib/PAF?: No Current PO Anticoag Therapy: No GME ATTESTATION GME ATTESTATION My faculty preceptor for this patient encounter was physically present during the encounter and was fully available. All aspects of the patient interview, examination, medical decision making process, and medical care plan development were reviewed and approved by the faculty preceptor. The faculty preceptor is aware and concurs with the plan as stated in the body of this note and will attest to such by his/her cosignature. ATTENDING NOTE TIME OF SERVICE 1150PM Mr. Chaudhary is 64 yr old M w a hx of HTN, bipolar disorder, CAD, IDDM, CKD 3 and obesity who presented w c/o difficulties walking, and falls for 2 weeks and was concerned that he had a CVA; CT was neg but his Poipu levels were elevated; he will be admitted pending improvement of his symptoms. #lithium toxicity #mild renal impairment #bereavement (his mother after battling cancer 2 weeks ago, he was teary at times during the exam and talked about the after life) Plan: IVF / will ask the day time team to consult Nephro if if his renal function declines and or lithium levels increase to 4 / he may need a PT consult to determine if he needs a walking aide prior to dc if his symptoms don't resolve Rest per 's H&P ANTONIO SOMERS DO Jul 11, 2020 23:02 CESILIA PETERS MD Jul 12, 2020 02:14
[2020-07-11] MEDS ORDERED: DEXTROSE 50% 50 ML SYRINGE IV PRN (23:15)
[2020-07-11] MEDS ORDERED: MAALOX 30 ML SUSP *UDC PO PRN (23:15)
[2020-07-11] MEDS ORDERED: ALBUTEROL SULFATE 2.5 MG/0.5 ML INH NEB SOLN INH PRN (23:15)
[2020-07-11] MEDS ORDERED: MOM 30ML SUSPENSION UDC PO PRN (23:15)
[2020-07-11] MEDS ORDERED: GLUCAGON INJ 1MG VIAL SC PRN (23:15)
[2020-07-11] MEDS ORDERED: GLUCOSE 4GM CHEW TABLET PO PRN (23:15)
[2020-07-11] MEDS: HumaLOG INSULIN (NovoLOG) PER UNIT SC SCH (23:40)
[2020-07-12 00:20] VITALS: BP 152/74
[2020-07-12 01:38] LABS: HEMOGLOBIN A1c 7.7 %
[2020-07-12] MEDS ORDERED: NS 1,000 ML IV SCH (02:15)
[2020-07-12 03:58] LABS: HEMATOCRIT 36.9 % (42.0-52.0); HEMOGLOBIN 11.5 g/dl (13.5-17.5); MEAN CORPUSCULAR HEMOGLOBIN 29.5 pg (27.0-33.0); MEAN CORPUSCULAR HGB CONC 31.2 g/dl (32.0-36.5); MEAN CORPUSCULAR VOLUME 94.6 fl (80.0-96.0); PLATELET COUNT, AUTOMATED 229 10^3/uL (150-450); WHITE BLOOD COUNT 12.1 10^3/uL (4.0-10.0)
[2020-07-12 04:00] VITALS: BP 156/69
[2020-07-12 04:23] LABS: ALBUMIN 2.3 GM/DL (3.2-5.2); BILIRUBIN,TOTAL 0.3 MG/DL (0.2-1.0); CREATININE FOR GFR 1.34 MG/DL (0.70-1.30); GLOMERULAR FILTRATION RATE 57.3 (>49); POTASSIUM SERUM 4.7 MEQ/L (3.5-5.1); TOTAL PROTEIN 6.2 GM/DL (6.4-8.2)
[2020-07-12] MEDS: NS 1,000 ML IV SCH ×4 (05:38→20:47)
--- NOTE | 2020-07-12 07:38 | ECGEPIP ---
[facility] - ED Test Date: 2020-07-11 Pat Name: JOSETTE MONTELONGO Department: Room: [place] [address] Gender: Male Preload Supervisor: susan : 1955 Requested By: FLAQUITA MOHAMUD Order Number: [id number] Reading MD: Darlene Landrum Measurements Intervals [place] Rate: 52 P: 38 MS: 261 QRS: 31 QRSD: 121 T: 101 QT: 448 QTc: 419 Interpretive Statements SINUS BRADYCARDIA WITH FIRST DEGREE AV BLOCK MODERATE INTRAVENTRICULAR CONDUCTION DELAY ST DEVIATION AND MODERATE T-WAVE ABNORMALITY, CONSIDER LATERAL ISCHEMIA, CLINICAL C CORRELATION Electronically Signed on 07-12-2020 7:38:25 EST by Darlene Landrum
[2020-07-12 08:00] VITALS: BP 178/80
[2020-07-12] MEDS: ASPIRIN 81 MG ENTERIC TAB PO SCH (08:06)
[2020-07-12] MEDS: HumaLOG INSULIN (NovoLOG) PER UNIT SC SCH ×4 (08:08→20:51)
[2020-07-12] MEDS ORDERED: METOPROLOL TART 25 MG TABLET PO SCH (09:00)
[2020-07-12] MEDS ORDERED: DOCUSATE SODIUM 100MG CAPSULE PO SCH (09:00)
[2020-07-12 09:29] LABS: CALCIUM LEVEL 8.9 MG/DL (8.8-10.2); CREATININE FOR GFR 1.29 MG/DL (0.70-1.30); GLOMERULAR FILTRATION RATE 59.9 (>49); POTASSIUM SERUM 5.1 MEQ/L (3.5-5.1)
[2020-07-12 12:00] VITALS: BP 130/54
--- NOTE | 2020-07-12 14:20 | IPNPDOC ---
Date Seen The patient was seen on 07/12/20. Progress Note SUBJECTIVE: The patient was seen and examined at the bedside this morning. He had no complaints other than 3-4 episodes of diarrhea overnight. He was concerned about his lithium level since morning. He states that he often finds himself with elevated lithium levels and his medication is managed by his psychiatrist Dr. Riggins. He has been on lithium and Lamictal for several years. He recently saw urology for urodynamic studies for large volumes of urine. Today he denies any blurry vision, lightheadedness, dizziness, shortness of breath, chest pain, or extremity pain. He does report he has gas pains in his stomach. He is tolerating food and drink well. OBJECTIVE PHYSICAL EXAMINATION: VITAL SIGNS: Please see below. GENERAL: alert and oriented, in no apparent distress, pleasant and conversant in full sentences. HEENT: PERRL, EOMI, Oral mucous membranes are moist without lesions. NECK: The patient has no noted JVD. No adenopathy is appreciated. No thyromegaly CHEST/LUNGS: Lungs are clear bilaterally without rhonchi, rales, or wheezes. There is no subcutaneous air appreciated. There is no tenderness to the chest wall. HEART:Regular rate and rhythm. No murmurs, rubs, or gallops are appreciated. Distal pulses are 2+. No carotid bruits appreciated. ABDOMEN: Soft, nontender, and nondistended. Bowel sounds are positive. No organomegaly is appreciated. No masses are appreciated. There are no peritoneal signs. There is no [place] sign. EXTREMITIES: No peripheral edema. There is no focal long bone tenderness or deformity. SKIN: The patients skin is warm and dry, without rashes or lesions. PSYCHIATRIC: AAO x 3, normal mood/affect NEUROLOGIC: The patient has 5/5 strength to the upper and lower extremities bilaterally. Sensation is intact throughout. Deep tendon reflexes are 2+ in all four extremities. There are no deficits to the cranial nerves. LABORATORY DATA, IMAGING STUDIES, MICROBIOLOGY: Please see below. DVT prophylaxis ordered?: TEDs/SCDs ASSESSMENT AND PLAN: This is a 64 YO M Bipolar I disorder, DM, s/p valve repair, CAD who presents with worsening weakness, lethargy and weight loss over the past 3 months as well as diarrhea (4-6 bowel movements/day) found to have elevated lithium level concerning for lithium toxicity. PROBLEMS: 1. Diarrhea: Etiology infectious vs lithium toxicity vs absorption disease. No recent hospitalizations, no recent antibiotics -Will order GI panel to rule out infectious etiology for diarrhea. -Will work up diarrhea including: fecal occult, GI panel, fecal osmolar gap, fecal WBC -[place] level trending down: 2.90 -- 2.27. Will recheck later today -Continue IVF 200cc/hr -I do not see cholestyramine on home med list nor external med history. 2. SULMA on CKD III: -Cr on admission found to be elevated at 1.49, likely prerenal 2/2 dehydration. Has improved to 1.29 today with fluids 3. Bipolar I disorder on lithium: -Patient reports mood stability on lithium/lamictal for several years. Sees Dr. 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 In which case he will need to be started on amiloride or thiazide diuretic 4. Leukocytosis: likely reactive 5. ?Suicidality?: patient states he has not had SI for a few days now, no plans. -Will call psychiatry consult 6. HTN: BP WNL -Continue home Amlodipine, Metoprolol, holding JEROME 7. BPH: Continue Flomax DVT ppx: TEDs/SCDs DISPOSITION: pending clinical improvement, workup of diarrhea VS, I&O, 24H, Fishbone Vital Signs/I&O Vital Signs Date Time Temp Pulse Resp B/P (MAP) Pulse Ox O2 Delivery O2 Flow Rate FiO2 07/12/20 08:07 70 178/80 07/12/20 08:00 98.4 18 99 Room Air I&O- Last 24 Hours up to 6 AM 07/12/20 06:00 Intake Total 1200 ml Output Total 600 ml Balance 600 ml Laboratory Data 24H LABS Laboratory Tests 2 07/11/20 20:42: Immature Granulocyte % (Auto) 0.7, Neutrophils (%) (Auto) 90.3H, Lymphocytes (%) (Auto) 3.9L, Monocytes (%) (Auto) 3.9, Eosinophils (%) (Auto) 0.8, Basophils (%) (Auto) 0.4, Neutrophils # (Auto) 17.8H, Lymphocytes # (Auto) 0.8L, Monocytes # (Auto) 0.8, Eosinophils # (Auto) 0.2, Basophils # (Auto) 0.1, Nucleated Red Blood Cells % (auto) 0.0, Anion Gap 3L, Glomerular Filtration Rate 50.7, Estimated Mean Plasma Glucose 174H, Hemoglobin A1c 7.7, Calcium Level 9.2, Total Bilirubin 0.2, Direct Bilirubin < 0.1, Aspartate Amino Transf (AST/SGOT) 8, Alanine Aminotransferase (ALT/SGPT) 21, Alkaline Phosphatase 118H, Ammonia 13, Total Creatine Kinase 102, Creatine Kinase MB 3.6, Creatine Kinase MB Relative Index 3.53, Troponin I < 0.02, Total Protein 6.6, Albumin 2.5L, Albumin/Globulin Ratio 0.6, Thyroid Stimulating Hormone (TSH) 1.630, Salicylates Level < 1.7L, Acetaminophen Level < 2.0L, [place] Level 2.90*H, Ethyl Alcohol Level < 0.003 07/11/20 21:22: Urine Color STRAW, Urine Appearance CLEAR, Urine pH 7.0, Urine Specific [place] 1.002, Urine Protein 1+H, Urine Glucose (UA) 3+H, Urine Ketones NEGATIVE, Urine Blood NEGATIVE, Urine Nitrite NEGATIVE, Urine Bilirubin NEGATIVE, Urine Urobilinogen 0.2, Urine Leukocyte Esterase NEGATIVE, Urine WBC (Auto) 0, Urine RBC (Auto) 0, Urine Hyaline Casts (Auto) 0, Urine Bacteria (Auto) NEGATIVE, Urine Squamous Epithelial Cells 0, Urine Sperm (Auto) , Urine Opiates Screen NEGATIVE, Urine Methadone Screen NEGATIVE, Urine Barbiturates Screen NEGATIVE, Urine Phencyclidine Screen NEGATIVE, Urine Amphetamines Screen NEGATIVE, Urine Benzodiazepines Screen NEGATIVE, Urine Cocaine Metabolite Screen NEGATIVE, Urine Cannabinoids Screen NEGATIVE 07/11/20 21:35: Coronavirus (COVID-19)(PCR) NEGATIVE 07/11/20 23:20: Lactic Acid Level 0.8 07/11/20 23:36: Bedside Glucose (Misc Panel) 70L 07/12/20 03:38: Nucleated Red Blood Cells % (auto) 0.0, Anion Gap 2L, Glomerular Filtration Rate 57.3, Calcium Level 9.0, Magnesium Level 3.0H, Total Bilirubin 0.3, Aspartate Amino Transf (AST/SGOT) 7, Alanine Aminotransferase (ALT/SGPT) 17, Alkaline Phosphatase 112, Total Protein 6.2L, Albumin 2.3L, Albumin/Globulin Ratio 0.6, [place] Level 2.27*H 07/12/20 06:26: Bedside Glucose (Misc Panel) 126H 07/12/20 08:49: CBC/BMP Laboratory Tests 07/11/20 20:42 07/12/20 03:38 Microbiology Microbiology 07/11/20 Blood Culture, Received Pending 07/11/20 Blood Culture, Received Pending GME ATTESTATION GME ATTESTATION My faculty preceptor for this patient encounter was physically present during the encounter and was fully available. All aspects of the patient interview, examination, medical decision making process, and medical care plan development were reviewed and approved by the faculty preceptor. The faculty preceptor is aware and concurs with the plan as stated in the body of this note and will attest to such by his/her cosignature. ATTENDING NOTE Patient was seen and examined by me personally with the students and the residents. Agree with the above assessment and plan. LEWIS LAMB MD Jul 12, 2020 09:30 OLIVER AQUINO MD Jul 13, 2020 11:39
[2020-07-12 15:49] LABS: CALCIUM LEVEL 8.8 MG/DL (8.8-10.2); CREATININE FOR GFR 1.81 MG/DL (0.70-1.30); GLOMERULAR FILTRATION RATE 40.5 (>49); POTASSIUM SERUM 5.3 MEQ/L (3.5-5.1)
[2020-07-12 16:00] VITALS: BP 142/66
[2020-07-12 20:00] VITALS: BP 145/63
[2020-07-12] MEDS: TAMSULOSIN 0.4 MG CAP PO SCH (20:44)
[2020-07-12] MEDS: VITAMIN D 1,000 INTERNATIONAL UNITS TABLET PO SCH (20:44)
[2020-07-12] MEDS: amLODIPine 10 MG TAB PO SCH (20:45)
[2020-07-12] MEDS ORDERED: lamoTRIgine 100MG TAB PO SCH (21:00)
[2020-07-13] VITALS (7 sets, daily range): BP systolic 137–170; BP diastolic 68–85
[2020-07-13] MEDS: NS 1,000 ML IV SCH ×4 (00:45→19:07)
[2020-07-13 05:38] LABS: HEMATOCRIT 37.4 % (42.0-52.0); HEMOGLOBIN 11.3 g/dl (13.5-17.5); MEAN CORPUSCULAR HEMOGLOBIN 29.6 pg (27.0-33.0); MEAN CORPUSCULAR HGB CONC 30.2 g/dl (32.0-36.5); MEAN CORPUSCULAR VOLUME 97.9 fl (80.0-96.0); PLATELET COUNT, AUTOMATED 208 10^3/uL (150-450); RED BLOOD COUNT 3.82 10^6/uL (4.30-6.10); WHITE BLOOD COUNT 11.6 10^3/uL (4.0-10.0)
[2020-07-13 06:04] LABS: CALCIUM LEVEL 9.2 MG/DL (8.8-10.2); CREATININE FOR GFR 1.39 MG/DL (0.70-1.30); GLOMERULAR FILTRATION RATE 54.9 (>49); LITHIUM LEVEL 1.35 MEQ/L (0.60-1.20); POTASSIUM SERUM 5.5 MEQ/L (3.5-5.1)
[2020-07-13] MEDS ORDERED: CALCIUM GLUCONATE 1,000 MG in D5W MINI-BAG PLUS 100 ML IV ONE (07:15)
[2020-07-13] MEDS: ASPIRIN 81 MG ENTERIC TAB PO SCH (08:15)
[2020-07-13] MEDS: HumaLOG INSULIN (NovoLOG) PER UNIT SC SCH ×4 (08:15→21:00)
--- NOTE | 2020-07-13 10:42 | MHCRPDOC ---
[facility] Consultation Consultation DATE OF CONSULTATION: 07/13/20 CONSULTATION REQUESTED BY: Internal med service REASON FOR CONSULTATION: The patient a 64-year-old man with a history of lithium as well as a history of multiple episodes of lithium toxicity presents after reportedly being started on a medication the constant diarrhea and he presented with a toxic level of lithium. He had quite a bit of confusion and little is able to be clean from him at this time due to his confusion. The consultation was requested for consideration of other medications as he's had multiple episodes of confusion with difficulty with lithium. RELEVANT HISTORY: Appears to be treated by a local psychiatrist on a combination of limited to one lithium. PAST PSYCHIATRIC HISTORY: Unclear if any previous history PAST MEDICAL HISTORY: [place] toxicity FAMILY HISTORY: Unknown PERSONAL AND SOCIAL HISTORY: Resides in: [place] Marital Status: M Children: Unknown Employment: Unknown SUBSTANCE ABUSE HISTORY: Unknown LEGAL HISTORY: None noted. MENTAL STATUS EXAMINATION: Patient is a [AGE]-year old male, who is . General: [Well dressed with good hygiene] Speech: Somewhat hyperverbal Thought processes: Tangential Thought content: confused Abstract reasoning, computation: Impaired Description of associations: Impaired Description of abnormal or psychotic thoughts: Unclear Judgment: Poor Insight: Poor Orientation: Confused and not oriented to place Recent and remote memory: Impaired Attention span and concentration: Impaired Fund of knowledge: Unable to check Mood: "Fine" Affect: Flat DIAGNOSIS: 1. Encephalopathy likely secondary to lithium 2. Bipolar/unspecified. PLAN: 1. Recommend observing patient in terms of resolution of encephalopathy, recommend discontinuing Lamictal due to fluctuations concentration and using her Rozerem 8 mg mg nightly to help with delirium will need to patient to be more fully resolved before new medications can be started or considered with a better assessment of his history. 2. Follow-up once patient less confused, recommend one-to-one sitter at discretion of team, doesn't appear to have any acute safety concerns not clear if whether this was an overdose, however has multiple episodes of lithium toxicity. If patient wishes to leave AMA, at the time of my assessment he does not appear to have the capacity due to his encephalopathy to make that decision, reevaluation can be completed however at this time if that were the case I would recommend deferring to his healthcare proxy Vital Signs Vital Signs Date Time Temp Pulse Resp B/P (MAP) Pulse Ox O2 Delivery O2 Flow Rate FiO2 07/13/20 08:00 99.3 58 18 160/75 (103) 97 Room Air Laboratory Data 24H Labs Laboratory Tests 2 07/12/20 11:00: Urine Random Osmolality 196L 07/12/20 12:13: Bedside Glucose (Misc Panel) 142H 07/12/20 15:11: Anion Gap 2L, Glomerular Filtration Rate 40.5L, Calcium Level 8.8 07/12/20 15:46: [place] Level 1.70H 07/12/20 17:07: Bedside Glucose (Misc Panel) 206H 07/12/20 20:50: Bedside Glucose (Misc Panel) 184H 07/13/20 05:06: Nucleated Red Blood Cells % (auto) 0.0, Anion Gap 3L, Glomerular Filtration Rate 54.9, Calcium Level 9.2, [place] Level 1.35H Home Medications Current Medications Current Medications Medications (Trade) Dose Ordered Sig/Carmen Route PRN Reason Start Time Stop Time Status Last Admin Dose Admin Acetaminophen (Tylenol Tab) 650 mg Q4H PRN PO PAIN OR FEVER 07/11/20 23:15 Al Hydrox/Mg Hydrox/Simethicone (Mylanta) 30 ml DAILY PRN PO DYSPEPSIA 07/11/20 23:15 Albuterol Sulfate (Proventil Neb) 2.5 mg QID PRN INH SHORTNESS OF BREATH 07/11/20 23:15 Amlodipine Besylate (Norvasc) 10 mg QHS PO 07/12/20 21:00 07/12/20 20:45 Aspirin (Ecotrin) 81 mg DAILY PO 07/12/20 09:00 07/13/20 08:15 Dextrose (Dextrose 50%) 25 ml ASDIRECTED PRN IV SEE LABEL COMMENTS 07/11/20 23:15 Docusate Sodium (Colace) 100 mg BID PO 07/12/20 09:00 07/12/20 09:24 DC Glucagon (Glucagon) 1 mg ASDIRECTED PRN SC SEE LABEL COMMENTS 07/11/20 23:15 Glucose (Glucose) 16 GM ASDIRECTED PRN PO SEE LABEL COMMENTS 07/11/20 23:15 Home Med (Med Rec Complete!) ASDIRECTED XX 07/11/20 23:00 07/11/20 22:52 DC Insulin Human Lispro (HumaLOG INSULIN) SEE PROTOCOL TABLE AC SC 07/12/20 07:30 07/13/20 08:15 Insulin Human Lispro (HumaLOG INSULIN) SEE PROTOCOL TABLE QHS SC 07/11/20 21:00 Lamotrigine (LaMICtal) 200 mg QHS PO 07/12/20 21:00 07/13/20 09:18 DC 07/12/20 20:45 Magnesium Hydroxide (Milk Of Magnesia) 30 ml DAILY PRN PO CONSTIPATION 07/11/20 23:15 Metoprolol Tartrate (Lopressor) 75 mg BID PO 07/12/20 09:00 07/12/20 17:01 DC 07/12/20 08:07 Sodium Chloride 1,000 ml @ 80 mls/hr [id number] IV 07/12/20 02:15 07/12/20 02:27 DC Sodium Chloride 1,000 ml @ 200 mls/hr Q5H IV 07/11/20 23:45 07/13/20 00:45 Tamsulosin HCl (Flomax) 0.4 mg QHS PO 07/12/20 21:00 07/12/20 20:44 Vitamin D (Vitamin D) 1,000 units QHS PO 07/12/20 21:00 07/12/20 20:44 Scheduled Alpha Lipoic Acid (Alpha Lipoic Acid) 600 Mg Cap, 600 MG PO BID, (Reported) Amlodipine Besylate (Amlodipine Besylate) 10 Mg Tablet, 10 MG PO QHS, (Reported) Aspirin (Aspirin EC) 81 Mg Tablet.dr, 81 MG PO DAILY, (Reported) Canagliflozin (Invokana) 300 Mg Tablet, 300 MG PO DAILY, (Reported) Cholecalciferol (Vitamin D3) (Vitamin D3) 1,000 Unit Tablet, 1,000 UNITS PO QHS, (Reported) Exenatide Microspheres (Bydureon Bcise) 2 Mg/0.85 Ml Auto.injct, 2 MG SC 1XWK, (Reported) TAKES ON THURSDAY Insulin Glargine,Hum.rec.anlog (Toumedhat Solostar) 300 Unit/Ml Inj, 100 UNIT SC QHS, (Reported) Insulin Lispro (Humalog Kwikpen U-200) 200 Unit/1 Ml Insuln.pen, 1 DOSE SC PC, (Reported) PER SLIDING SCALE Lamotrigine (Lamotrigine) 200 Mg Tablet, 200 MG PO QHS, (Reported) [place] Carbonate ([place] Carbonate) 300 Mg Capsule, 1,500 MG PO QHS, (Reported) Metformin HCl (Metformin HCl ER) 500 Mg Tab.er.24h, 1,000 MG PO BID, (Reported) Metoprolol Tartrate (Metoprolol Tartrate) 50 Mg Tablet, 75 MG PO BID, (Reported) [place]-3 Fatty Acids/Fish Oil (Fish Oil 1,000 mg Capsule) 1 Each Capsule, 1,000 MG PO DAILY, (Reported) Quinapril Hcl (Quinapril HCl) 40 Mg Tablet, 40 MG PO QHS, (Reported) Tamsulosin HCl (Flomax) 0.4 Mg Capsule, 0.4 MG PO QHS, (Reported) Scheduled PRN Albuterol Sulf (Albuterol Sulfate) 2.5 Mg/3 Ml Vial.neb, 2.5 MG INH QID PRN for SHORTNESS OF BREATH, (Reported) Allergies Coded Allergies: iodine (Verified Allergy, Unknown, 05/26/19) shellfish derived (Verified Allergy, Unknown, 05/26/19) BRIGETTE WHITE DO Jul 13, 2020 10:42
--- NOTE | 2020-07-13 12:43 | IPNPDOC ---
Date Seen The patient was seen on 07/13/20. Progress Note SUBJECTIVE: Patient was seen and examined at the bedside this morning. He reports he still is having diarrhea. He denies any nausea or abdominal pain. Further clarifying questions regarding his diarrhea: he states it has been off/on for the past 3 months. He has been taking cholestyramine off/on which he self-titrates and often gets constipation from taking too much. He states his PCP writes his prescription for cholestyramine. I personally called [facility] who report that the patient last picked up a prescription for cholestyramine 10/27/2018. In regards to other options for psychiatric medications, the patient reports having tried Depakote before which made him g ain a significant amount of weight. Nursing reports the patient is becoming more delirious and pacing about his room later in the morning. OBJECTIVE PHYSICAL EXAMINATION: VITAL SIGNS: Please see below. GENERAL: alert and oriented, in no apparent distress, pleasant and conversant in full sentences. HEENT: PERRL, EOMI, Oral mucous membranes are moist without lesions. NECK: The patient has no noted JVD. No adenopathy is appreciated. No thyromegaly CHEST/LUNGS: Lungs are clear bilaterally without rhonchi, rales, or wheezes. There is no subcutaneous air appreciated. There is no tenderness to the chest wall. HEART:Regular rate and rhythm. No murmurs, rubs, or gallops are appreciated. Distal pulses are 2+. No carotid bruits appreciated. ABDOMEN: Soft, nontender, and nondistended. Bowel sounds are positive. No organomegaly is appreciated. No masses are appreciated. There are no peritoneal signs. There is no [place] sign. EXTREMITIES: No peripheral edema. There is no focal long bone tenderness or deformity. SKIN: The patients skin is warm and dry, without rashes or lesions. PSYCHIATRIC: AAO x 3, normal mood/affect NEUROLOGIC: The patient has 5/5 strength to the upper and lower extremities bilaterally. Sensation is intact throughout. Deep tendon reflexes are 2+ in all four extremities. There are no deficits to the cranial nerves. LABORATORY DATA, IMAGING STUDIES, MICROBIOLOGY: Please see below. DVT prophylaxis ordered?: TEDs/SCDs ASSESSMENT AND PLAN: This is a 64 YO M Bipolar I disorder, DM, s/p valve repair, CAD who presents with worsening weakness, lethargy and weight loss over the past 3 months as well as diarrhea (4-6 bowel movements/day) found to have elevated lithium level concerning for lithium toxicity. PROBLEMS: 1. Diarrhea: likely 2/2 lithium toxicity. No recent hospitalizations, no recent antibiotics -Looking back in EMR, lithium levels have been quite labile throughout the years, which may be related to his episodes of diarrhea -Stool samples sent to lab for further studies: fecal occult, GI panel, fecal osmolar gap, fecal WBC -Clarified with pharmacy that patient has not been prescribed cholestyramine for over a year. Will not continue at this time -IVF decreased to 100cc/hr 2. [place] toxicity: could explain the patient's diarrhea, waxing/waning delirum/confusion -[place] level trending down: 2.27 -- 1.70 -- 1.35. Will check another level this afternoon -Psychiatry consulted (Dr. Ambrose) who recommended stopping Lamictal and continuing with fluid resuscitation. 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 Patient reports drinking high volumes of fluid and is having large volumes of urine this hospitalization 3. SULMA on CKD III: may be 2/2 lithium toxicity vs obstruction -Cr has fluctuated throughout this hospitalization: 1.34 -- 1.29 -- 1.81 --1.39. Unsure of baseline -Renal US ordered -Postvoid residual ordered 4. Hyperkalemia: K today found to be 5.5 -given 1 dose calcium gluconate -will repeat BMP today 5. Bipolar I disorder: -Per direction of psychiatry, lamictal held as well as lithium -Psychiatry to see and determine whether medication can be switched to Abilify? 6. HTN: -continue Amlodipine 7. BPH: -Continue Flomax DISPO: pending further workup, clinical improvement, psychiatry consult DISPOSITION: . VS, I&O, 24H, Fishbone Vital Signs/I&O Vital Signs Date Time Temp Pulse Resp B/P (MAP) Pulse Ox O2 Delivery O2 Flow Rate FiO2 07/13/20 08:00 99.3 58 18 160/75 (103) 97 Room Air I&O- Last 24 Hours up to 6 AM 07/13/20 05:59 Intake Total 6490 ml Output Total 2550 ml Balance 3940 ml Laboratory Data 24H LABS Laboratory Tests 2 07/12/20 15:11: Anion Gap 2L, Glomerular Filtration Rate 40.5L, Calcium Level 8.8 07/12/20 15:46: [place] Level 1.70H 07/12/20 17:07: Bedside Glucose (Misc Panel) 206H 07/12/20 20:50: Bedside Glucose (Misc Panel) 184H 07/13/20 05:06: Nucleated Red Blood Cells % (auto) 0.0, Anion Gap 3L, Glomerular Filtration Rate 54.9, Calcium Level 9.2, [place] Level 1.35H 07/13/20 11:58: Bedside Glucose (Misc Panel) 221H CBC/BMP Laboratory Tests 07/12/20 15:11 07/13/20 05:06 Microbiology Microbiology 07/13/20 Blood Culture, Received Pending 07/13/20 Blood Culture, Received Pending 07/12/20 Campylobacter (PCR), Received Pending 07/12/20 Clostridium difficile Toxin A&B PCR, Received Pending 07/12/20 Plesiomonas shigelloides (PCR), Received Pending 07/12/20 Salmonella (PCR)(ALONDRA), Received Pending 07/12/20 Vibrio Species (PCR), Received Pending 07/12/20 Vibrio Cholerae (PCR), Received Pending 07/12/20 Yersinia enterocolitica (PCR), Received Pending 07/12/20 Enteroaggregative E. coli (PCR), Received Pending 07/12/20 Enteropathogenic E. coli (PCR), Received Pending 07/12/20 Enterotoxigenic E. coli (PCR), Received Pending 07/12/20 E. coli Shiga-like Toxin (PCR), Received Pending 07/12/20 Escherichia coli 0157 (PCR), Received Pending 07/12/20 Enteroinvasive E. coli/Shigella PCR, Received Pending 07/12/20 Cryptosporidium (PCR), Received Pending 07/12/20 Cyclospora cayetanensis (PCR), Received Pending 07/12/20 Entamoeba histolytica (PCR), Received Pending 07/12/20 Giardia lamblia (PCR), Received Pending 07/12/20 Adenovirus Type F 40/41 (PCR), Received Pending 07/12/20 Astrovirus (PCR), Received Pending 07/12/20 Norovirus GI/GII (PCR), Received Pending 07/12/20 Rotavirus A (PCR), Received Pending 07/12/20 Sapovirus I/II/IV/V (PCR), Received Pending 07/12/20 Stool Occult Blood (ALONDRA) - Final, Complete 07/11/20 Blood Culture - Preliminary, Resulted 07/11/20 Blood Culture - Preliminary, Resulted GME ATTESTATION GME ATTESTATION My faculty preceptor for this patient encounter was physically present during the encounter and was fully available. All aspects of the patient interview, examination, medical decision making process, and medical care plan development were reviewed and approved by the faculty preceptor. The faculty preceptor is aware and concurs with the plan as stated in the body of this note and will attest to such by his/her cosignature. LEWIS LAMB MD Jul 13, 2020 12:43
--- NOTE | 2020-07-13 13:39 | REP ---
INDICATION: SULMA COMPARISON: 09/07/2018 TECHNIQUE: Real time vázquez scale ultrasound examination using curved array transducer. FINDINGS: Bilateral kidneys are normal in contour, size, echogenicity, and reniform shape. No hydronephrosis, nephrolithiasis, cystic or renal mass lesion. No perinephric fluid collection. Right kidney measures 12.7 x 6.6 x 5.7 cm. Left kidney measures 12.2 x 5.1 x 6.4 cm. Bladder is normal. IMPRESSION: 1. Normal renal ultrasound. <Electronically signed by Howie Dyer > 07/13/20 [id number]
[2020-07-13 14:08] LABS: Lyme Disease IgG/IgM Antibodie <0.91 ISR (0.00-0.90); Lyme Disease IgM Ab Quantitati <0.80 index (0.00-0.79)
[2020-07-13 14:33] LABS: CALCIUM LEVEL 9.9 MG/DL (8.8-10.2); CREATININE FOR GFR 1.42 MG/DL (0.70-1.30); GLOMERULAR FILTRATION RATE 53.6 (>49); POTASSIUM SERUM 4.6 MEQ/L (3.5-5.1)
[2020-07-13] MEDS: METOPROLOL TART 25 MG TABLET PO SCH (17:45)
[2020-07-13] MEDS: RAMELTEON 8 MG TAB (ROZEREM) PO SCH (21:26)
[2020-07-13] MEDS: TAMSULOSIN 0.4 MG CAP PO SCH (21:26)
[2020-07-13] MEDS: amLODIPine 10 MG TAB PO SCH (21:26)
[2020-07-13] MEDS: VITAMIN D 1,000 INTERNATIONAL UNITS TABLET PO SCH (21:26)
[2020-07-14] VITALS: BP 158/60
[2020-07-14 04:00] VITALS: BP 146/78
[2020-07-14 05:21] LABS: HEMATOCRIT 38.3 % (42.0-52.0); HEMOGLOBIN 11.7 g/dl (13.5-17.5); MEAN CORPUSCULAR HGB CONC 30.5 g/dl (32.0-36.5); PLATELET COUNT, AUTOMATED 228 10^3/uL (150-450); RED BLOOD COUNT 4.03 10^6/uL (4.30-6.10); WHITE BLOOD COUNT 11.8 10^3/uL (4.0-10.0)
[2020-07-14 05:40] LABS: CALCIUM LEVEL 9.4 MG/DL (8.8-10.2); CREATININE FOR GFR 1.34 MG/DL (0.70-1.30); GLOMERULAR FILTRATION RATE 57.3 (>49); POTASSIUM SERUM 5.1 MEQ/L (3.5-5.1)
[2020-07-14 07:53] LABS: LITHIUM LEVEL 0.94 MEQ/L (0.60-1.20)
[2020-07-14 08:13] VITALS: BP 168/86
[2020-07-14] MEDS: METOPROLOL TART 25 MG TABLET PO SCH ×2 (08:20→21:00)
[2020-07-14] MEDS: ASPIRIN 81 MG ENTERIC TAB PO SCH (08:25)
[2020-07-14] MEDS: HumaLOG INSULIN (NovoLOG) PER UNIT SC SCH ×5 (08:25→21:00)
[2020-07-14] MEDS: NS 1,000 ML IV SCH ×2 (08:26→16:50)
--- NOTE | 2020-07-14 12:26 | IPNPDOC ---
Date Seen The patient was seen on 07/14/20. Progress Note SUBJECTIVE: Patient was seen and examined at bedside chart it's been reviewed. He denies any chest pain, pressure, tightness, shortness of breath. He complains of chronic lower extremity edema since his been admitted, but no complaints of heaviness or paresthesias. Patient said that he thought the building was burning. He says he usually gets disoriented and realizes it was not real.. OBJECTIVE PHYSICAL EXAMINATION: VITAL SIGNS: Please see below. GENERAL: Answering questions appropriately HEENT: No JVD, no thyromegaly CARDIOVASCULAR: S1, S2, sinus rhythm RESPIRATORY: Diminished breath sounds, fine basilar crackles bilaterally ABDOMINAL: Obese, soft, nontender, nondistended. No rebound or guarding EXTREMITIES: 3+ pitting edema to the sacrum LABORATORY DATA, IMAGING STUDIES, MICROBIOLOGY: Please see below. PROBLEMS: lithium toxicity acute renal failure bipolar d/o hyperkalemia diarrhea PLAN: kayexalate, calcium gluconate, ivfluids until renal fxn back to baseline. sitter one to one observation. medically stable to tx to [facility] tele. VS, I&O, 24H, Fishbone Vital Signs/I&O Vital Signs Date Time Temp Pulse Resp B/P (MAP) Pulse Ox O2 Delivery O2 Flow Rate FiO2 07/14/20 08:20 60 07/14/20 08:13 98.9 16 168/86 (113) 97 Room Air I&O- Last 24 Hours up to 6 AM 07/14/20 06:00 Intake Total 6280 ml Output Total 1550 ml Balance 4730 ml Laboratory Data 24H LABS Laboratory Tests 2 07/13/20 11:58: Bedside Glucose (Misc Panel) 221H 07/13/20 13:44: Anion Gap 3L, Glomerular Filtration Rate 53.6, Calcium Level 9.9, [place] Level 1.20 07/13/20 16:57: Bedside Glucose (Misc Panel) 214H 07/13/20 21:22: Bedside Glucose (Misc Panel) 211H 07/14/20 04:58: Nucleated Red Blood Cells % (auto) 0.0, Anion Gap 6L, Glomerular Filtration Rate 57.3, Calcium Level 9.4, [place] Level 0.94 CBC/BMP Laboratory Tests 07/13/20 13:44 07/14/20 04:58 Microbiology Microbiology 07/13/20 Campylobacter (PCR), Received Pending 07/13/20 Clostridium difficile Toxin A&B PCR, Received Pending 07/13/20 Plesiomonas shigelloides (PCR), Received Pending 07/13/20 Salmonella (PCR)(ALONDRA), Received Pending 07/13/20 Vibrio Species (PCR), Received Pending 07/13/20 Vibrio Cholerae (PCR), Received Pending 07/13/20 Yersinia enterocolitica (PCR), Received Pending 07/13/20 Enteroaggregative E. coli (PCR), Received Pending 07/13/20 Enteropathogenic E. coli (PCR), Received Pending 07/13/20 Enterotoxigenic E. coli (PCR), Received Pending 07/13/20 E. coli Shiga-like Toxin (PCR), Received Pending 07/13/20 Escherichia coli 0157 (PCR), Received Pending 07/13/20 Enteroinvasive E. coli/Shigella PCR, Received Pending 07/13/20 Cryptosporidium (PCR), Received Pending 07/13/20 Cyclospora cayetanensis (PCR), Received Pending 07/13/20 Entamoeba histolytica (PCR), Received Pending 07/13/20 Giardia lamblia (PCR), Received Pending 07/13/20 Adenovirus Type F 40/41 (PCR), Received Pending 07/13/20 Astrovirus (PCR), Received Pending 07/13/20 Norovirus GI/GII (PCR), Received Pending 07/13/20 Rotavirus A (PCR), Received Pending 07/13/20 Sapovirus I/II/IV/V (PCR), Received Pending 07/13/20 Blood Culture - Preliminary, Resulted No growth after 24 hours . All specim... 07/13/20 Blood Culture - Preliminary, Resulted No growth after 24 hours . All specim... 07/12/20 Campylobacter (PCR), Received Pending 07/12/20 Clostridium difficile Toxin A&B PCR, Received Pending 07/12/20 Plesiomonas shigelloides (PCR), Received Pending 07/12/20 Salmonella (PCR)(ALONDRA), Received Pending 07/12/20 Vibrio Species (PCR), Received Pending 07/12/20 Vibrio Cholerae (PCR), Received Pending 07/12/20 Yersinia enterocolitica (PCR), Received Pending 07/12/20 Enteroaggregative E. coli (PCR), Received Pending 07/12/20 Enteropathogenic E. coli (PCR), Received Pending 07/12/20 Enterotoxigenic E. coli (PCR), Received Pending 07/12/20 E. coli Shiga-like Toxin (PCR), Received Pending 07/12/20 Escherichia coli 0157 (PCR), Received Pending 07/12/20 Enteroinvasive E. coli/Shigella PCR, Received Pending 07/12/20 Cryptosporidium (PCR), Received Pending 07/12/20 Cyclospora cayetanensis (PCR), Received Pending 07/12/20 Entamoeba histolytica (PCR), Received Pending 07/12/20 Giardia lamblia (PCR), Received Pending 07/12/20 Adenovirus Type F 40/41 (PCR), Received Pending 07/12/20 Astrovirus (PCR), Received Pending 07/12/20 Norovirus GI/GII (PCR), Received Pending 07/12/20 Rotavirus A (PCR), Received Pending 07/12/20 Sapovirus I/II/IV/V (PCR), Received Pending 07/12/20 Stool Occult Blood (ALONDRA) - Final, Complete 07/11/20 Blood Culture - Final, Complete Staphylococcus Epidermidis 07/11/20 Blood Culture - Final, Complete Staphylococcus Haemolyticus VÍCTOR NAVARRETE MD Jul 14, 2020 11:22
[2020-07-14] MEDS ORDERED: SOD POLYSTYRENE SULFONATE SUSP 15 GM/60 ML UD PO ONE (13:00)
[2020-07-14] MEDS ORDERED: CALCIUM GLUCONATE 1,000 MG in D5W MINI-BAG PLUS 100 ML IV ONE (13:00)
[2020-07-14 16:00] VITALS: BP 196/92
[2020-07-14] MEDS ORDERED: amLODIPine 10 MG TAB PO ONE (16:45)
[2020-07-14 19:37] LABS: BLOOD UREA NITROGEN 8 MG/DL (7-18); CALCIUM LEVEL 8.9 MG/DL (8.8-10.2); CARBON DIOXIDE LEVEL 23 MEQ/L (21-32); CHLORIDE LEVEL 113 MEQ/L (98-107); CREATININE FOR GFR 1.23 MG/DL (0.70-1.30); GLOMERULAR FILTRATION RATE > 60.0 (>49); GLUCOSE, FASTING 244 MG/DL (70-100); MAGNESIUM LEVEL 1.8 MG/DL (1.8-2.4); POTASSIUM SERUM 4.2 MEQ/L (3.5-5.1); SODIUM LEVEL 141 MEQ/L (136-145)
[2020-07-14 20:00] VITALS: BP 126/54
[2020-07-14] MEDS: RAMELTEON 8 MG TAB (ROZEREM) PO SCH (21:05)
[2020-07-14] MEDS: TAMSULOSIN 0.4 MG CAP PO SCH (21:06)
[2020-07-14] MEDS: amLODIPine 10 MG TAB PO SCH (21:06)
[2020-07-14] MEDS: VITAMIN D 1,000 INTERNATIONAL UNITS TABLET PO SCH (21:07)
[2020-07-15] VITALS: BP 142/72
[2020-07-15] MEDS: NS 1,000 ML IV SCH (02:01)
[2020-07-15 04:44] LABS: HEMATOCRIT 36.5 % (42.0-52.0); HEMOGLOBIN 11.2 g/dl (13.5-17.5); MEAN CORPUSCULAR HEMOGLOBIN 29.6 pg (27.0-33.0); MEAN CORPUSCULAR HGB CONC 30.7 g/dl (32.0-36.5); MEAN CORPUSCULAR VOLUME 96.3 fl (80.0-96.0); PLATELET COUNT, AUTOMATED 196 10^3/uL (150-450); RED BLOOD COUNT 3.79 10^6/uL (4.30-6.10)
[2020-07-15 05:17] LABS: BLOOD UREA NITROGEN 13 MG/DL (7-18); CALCIUM LEVEL 8.8 MG/DL (8.8-10.2); CARBON DIOXIDE LEVEL 24 MEQ/L (21-32); CHLORIDE LEVEL 113 MEQ/L (98-107); CREATININE FOR GFR 1.16 MG/DL (0.70-1.30); GLOMERULAR FILTRATION RATE > 60.0 (>49); GLUCOSE, FASTING 269 MG/DL (70-100); POTASSIUM SERUM 4.4 MEQ/L (3.5-5.1); SODIUM LEVEL 143 MEQ/L (136-145)
[2020-07-15] MEDS: METOPROLOL TART 25 MG TABLET PO SCH ×2 (08:01→20:42)
[2020-07-15 08:07] VITALS: BP 160/60
[2020-07-15] MEDS: ASPIRIN 81 MG ENTERIC TAB PO SCH (08:10)
[2020-07-15] MEDS: HumaLOG INSULIN (NovoLOG) PER UNIT SC SCH ×4 (08:10→20:51)
--- NOTE | 2020-07-15 09:05 | IPNPDOC ---
Date Seen The patient was seen on 07/15/20. Progress Note SUBJECTIVE: c/o neuropathy b/l feet when he ambulates but gets better w socks. refuses pain meds for now. despite ivfluids, no c/o sob, cp, but increased LE edema b/l. c/o gait instability despite using hhis walker, and says he felt like he was going to fall. OBJECTIVE PHYSICAL EXAMINATION: VITAL SIGNS: Please see below. GENERAL: Answering questions appropriately HEENT: No JVD, no thyromegaly CARDIOVASCULAR: S1, S2, sinus rhythm RESPIRATORY: Diminished breath sounds, fine basilar crackles bilaterally ABDOMINAL: Obese, soft, nontender, nondistended. No rebound or guarding EXTREMITIES: 1+ edema b/l LABORATORY DATA, IMAGING STUDIES, MICROBIOLOGY: Please see below. PROBLEMS: lithium toxicity acute renal failure,resolved fluid overload w b/l LE edeam peripheral neuropathy bipolar d/o gait instability PLAN: due to c/o gait instability, physical therapy consulted. dc iv fluids since creatinine is wnl. tx to [facility]. if cleared by PT, may dc to [facility]. VS, I&O, 24H, Fishbone Vital Signs/I&O Vital Signs Date Time Temp Pulse Resp B/P (MAP) Pulse Ox O2 Delivery O2 Flow Rate FiO2 07/15/20 08:07 98.5 58 20 160/60 (93) 96 Room Air I&O- Last 24 Hours up to 6 AM 07/15/20 06:00 Intake Total 3480 ml Output Total 1900 ml Balance 1580 ml Laboratory Data 24H LABS Laboratory Tests 2 07/14/20 12:47: Bedside Glucose (Misc Panel) 209H 07/14/20 16:43: Bedside Glucose (Misc Panel) 197H 07/14/20 19:01: Anion Gap 5L, Glomerular Filtration Rate > 60.0, Calcium Level 8.9, Magnesium Level 1.8 07/14/20 20:57: Bedside Glucose (Misc Panel) 219H 07/15/20 04:11: Nucleated Red Blood Cells % (auto) 0.0, Anion Gap 6L, Glomerular Filtration Rate > 60.0, Calcium Level 8.8 CBC/BMP Laboratory Tests 07/14/20 19:01 07/15/20 04:11 Microbiology Microbiology 07/13/20 Campylobacter (PCR), Received Pending 07/13/20 Clostridium difficile Toxin A&B PCR, Received Pending 07/13/20 Plesiomonas shigelloides (PCR), Received Pending 07/13/20 Salmonella (PCR)(ALONDRA), Received Pending 07/13/20 Vibrio Species (PCR), Received Pending 07/13/20 Vibrio Cholerae (PCR), Received Pending 07/13/20 Yersinia enterocolitica (PCR), Received Pending 07/13/20 Enteroaggregative E. coli (PCR), Received Pending 07/13/20 Enteropathogenic E. coli (PCR), Received Pending 07/13/20 Enterotoxigenic E. coli (PCR), Received Pending 07/13/20 E. coli Shiga-like Toxin (PCR), Received Pending 07/13/20 Escherichia coli 0157 (PCR), Received Pending 07/13/20 Enteroinvasive E. coli/Shigella PCR, Received Pending 07/13/20 Cryptosporidium (PCR), Received Pending 07/13/20 Cyclospora cayetanensis (PCR), Received Pending 07/13/20 Entamoeba histolytica (PCR), Received Pending 07/13/20 Giardia lamblia (PCR), Received Pending 07/13/20 Adenovirus Type F 40/41 (PCR), Received Pending 07/13/20 Astrovirus (PCR), Received Pending 07/13/20 Norovirus GI/GII (PCR), Received Pending 07/13/20 Rotavirus A (PCR), Received Pending 07/13/20 Sapovirus I/II/IV/V (PCR), Received Pending 07/13/20 Blood Culture - Preliminary, Resulted No Growth after 48 hours. All Specime... 07/13/20 Blood Culture - Preliminary, Resulted No Growth after 48 hours. All Specime... 07/12/20 Campylobacter (PCR), Received Pending 07/12/20 Clostridium difficile Toxin A&B PCR, Received Pending 07/12/20 Plesiomonas shigelloides (PCR), Received Pending 07/12/20 Salmonella (PCR)(ALONDRA), Received Pending 07/12/20 Vibrio Species (PCR), Received Pending 07/12/20 Vibrio Cholerae (PCR), Received Pending 07/12/20 Yersinia enterocolitica (PCR), Received Pending 07/12/20 Enteroaggregative E. coli (PCR), Received Pending 07/12/20 Enteropathogenic E. coli (PCR), Received Pending 07/12/20 Enterotoxigenic E. coli (PCR), Received Pending 07/12/20 E. coli Shiga-like Toxin (PCR), Received Pending 07/12/20 Escherichia coli 0157 (PCR), Received Pending 07/12/20 Enteroinvasive E. coli/Shigella PCR, Received Pending 07/12/20 Cryptosporidium (PCR), Received Pending 07/12/20 Cyclospora cayetanensis (PCR), Received Pending 07/12/20 Entamoeba histolytica (PCR), Received Pending 07/12/20 Giardia lamblia (PCR), Received Pending 07/12/20 Adenovirus Type F 40/41 (PCR), Received Pending 07/12/20 Astrovirus (PCR), Received Pending 07/12/20 Norovirus GI/GII (PCR), Received Pending 07/12/20 Rotavirus A (PCR), Received Pending 07/12/20 Sapovirus I/II/IV/V (PCR), Received Pending 07/12/20 Stool Occult Blood (ALONDRA) - Final, Complete 07/11/20 Blood Culture - Final, Complete Staphylococcus Epidermidis 07/11/20 Blood Culture - Final, Complete Staphylococcus Haemolyticus VÍCTOR NAVARRETE MD Jul 15, 2020 09:05
--- NOTE | 2020-07-15 09:18 | REP ---
INDICATION: edema r/o dvt COMPARISON: None. TECHNIQUE: Pollard scale and color Doppler evaluation of the bilateral lower extremities using linear high frequency transducer. FINDINGS: Ultrasound examination of the right and left lower extremity deep venous structures from the common femoral vein to the popliteal vein demonstrates normal compressibility flow and wave patterns in response to respiration and augmentation. There is no evidence for deep venous thrombosis. IMPRESSION: No evidence for deep venous thrombosis. <Electronically signed by Howie Dyer > 07/15/20 0914
[2020-07-15 12:12] VITALS: BP 150/70
[2020-07-15 16:44] VITALS: BP 150/70
[2020-07-15 20:00] VITALS: BP 154/69
[2020-07-15] MEDS: TAMSULOSIN 0.4 MG CAP PO SCH (20:50)
[2020-07-15] MEDS: VITAMIN D 1,000 INTERNATIONAL UNITS TABLET PO SCH (20:50)
[2020-07-15] MEDS: amLODIPine 10 MG TAB PO SCH (20:50)
[2020-07-15] MEDS: RAMELTEON 8 MG TAB (ROZEREM) PO SCH (20:50)
[2020-07-16 04:00] VITALS: BP 166/70
[2020-07-16 05:46] LABS: HEMATOCRIT 37.1 % (42.0-52.0); HEMOGLOBIN 11.6 g/dl (13.5-17.5); MEAN CORPUSCULAR HEMOGLOBIN 29.9 pg (27.0-33.0); MEAN CORPUSCULAR HGB CONC 31.3 g/dl (32.0-36.5); MEAN CORPUSCULAR VOLUME 95.6 fl (80.0-96.0); PLATELET COUNT, AUTOMATED 189 10^3/uL (150-450); RED BLOOD COUNT 3.88 10^6/uL (4.30-6.10); WHITE BLOOD COUNT 9.3 10^3/uL (4.0-10.0)
[2020-07-16] MEDS ORDERED: metOLazone 2.5 MG TAB PO ONE (06:00)
[2020-07-16 06:14] LABS: BLOOD UREA NITROGEN 14 MG/DL (7-18); CALCIUM LEVEL 8.9 MG/DL (8.8-10.2); CARBON DIOXIDE LEVEL 25 MEQ/L (21-32); CHLORIDE LEVEL 114 MEQ/L (98-107); CREATININE FOR GFR 1.16 MG/DL (0.70-1.30); GLOMERULAR FILTRATION RATE > 60.0 (>49); GLUCOSE, FASTING 298 MG/DL (70-100); POTASSIUM SERUM 4.4 MEQ/L (3.5-5.1); SODIUM LEVEL 142 MEQ/L (136-145)
[2020-07-16] MEDS ORDERED: FUROSEMIDE 40MG/4ML VIAL (J1940) IV ONE (06:30)
--- NOTE | 2020-07-16 07:13 | ECGEPIP ---
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
[2020-07-16 08:00] VITALS: BP 140/66
[2020-07-16] MEDS ORDERED: cloNIDine 0.1 MG TAB PO ONE (08:15)
[2020-07-16] MEDS: ASPIRIN 81 MG ENTERIC TAB PO SCH (08:32)
[2020-07-16] MEDS: METOPROLOL TART 25 MG TABLET PO SCH ×2 (08:34→20:10)
[2020-07-16] MEDS: HumaLOG INSULIN (NovoLOG) PER UNIT SC SCH ×4 (08:35→20:08)
[2020-07-16] MEDS ORDERED: ISOSORBIDE DIN (ISORDIL) 10 MG TAB PO ONE (12:00)
[2020-07-16 16:00] VITALS: BP 130/62
[2020-07-16] MEDS ORDERED: LEVEMIR (INSULIN DETEMIR) 1 UNITS/0.01ML SC ONE (16:30)
--- NOTE | 2020-07-16 16:39 | DS.PDOC ---
Discharge Summary General Date of Admission Jul 11, 2020 at 22:45 Date of Discharge 07/16/20 Discharge Summary DISCHARGE DIAGNOSES: lithium toxicity Acute toxic/metabolic encephalopathy SIRS Acute Kidney Injury due to chronic diarrhea fluid overload due to iv fluids Abnormal EKG /1st degree AV block chronic peripheral neuropathy insulin-dependent DM2, uncontrolled bipolar d/o gait instability chronic diarrhea contaminated blood cultures DISCHARGE MEDICATIONS: see below DISCHARGE INSTRUCTIONS: Discharge to [facility] Dr. Ambrose for psychiatric management. PCP fu within 7days of hospital discharge. BARRER AND TACKER: PSYCHIATRIST-Dr. Ambrose HOSPITAL COURSE: 64-year-old male, history of bipolar disorder, hypertension, hyperlipidemia, CAD status post stent, IDDM, presented to the ED c/o generalized weakness, visual changes, and was found to have SIRS, acute renal failure, and high levels of lithium, 2.9, reference range 0.6-1.2. U tox negative UA negative. Imaging of the patient's head and chest were performed without any acute findings. He was given ivfluids with resolution fo sulma, and renal us was negative for hydronephrosis. Due to leukocytosis, blood cultures obtained were contaminated and did not need iv abx with improved wbc to normal without intervention. GI panel was pending and antimotility meds not given until finalized. SARS covid negative. Pt developed fluid overload with 3+LE edema with iv fluids, but us dopplers negative for dvt b/l LE. After kidney function improved, pt was diuresed with zaroxolyn and lasix w significant improvement of LE edema from 3+ to 1+ edema. Pt's mentation and gait improved over the next few days, and was found to be stable both medically and physically to be discharged. Psychiatrist Dr. Ambrose was consulted to determine if pt requires inpatient management or may be discharged home , and to finalized psych meds if pt is stable for dc daniel e. DISCHARGE PHYSICAL EXAMINATION: VITAL SIGNS: Please see below. GENERAL: Answering questions appropriately HEENT: No JVD, no thyromegaly CARDIOVASCULAR: S1, S2, sinus rhythm RESPIRATORY: Diminished breath sounds, fine basilar crackles bilaterally ABDOMINAL: Obese, soft, nontender, nondistended. 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 Exam: CT Head Without Contrast Exam date and time: 07/11/2020 8:30 PM Age: 64 years old Clinical indication: Altered mental status/memory loss TECHNIQUE: Imaging protocol: Computed tomography of the head without contrast. Radiation optimization: All CT scans at this facility use at least one of these dose optimization techniques: automated exposure control; mA and/or kV adjustment per patient size (includes targeted exams where dose is matched to clinical indication); or iterative reconstruction. COMPARISON: No relevant prior studies available. FINDINGS: Brain: There is mild age related parenchymal volume loss. Mild white matter changes are demonstrated consistent with age related small vessel white matter ischemic changes. Cerebral ventricles: No ventriculomegaly. Bones/joints: Unremarkable. No acute fracture. Paranasal sinuses: Visualized sinuses are unremarkable. No fluid levels. Mastoid air cells: Visualized mastoid air cells are well aerated. Soft tissues: Unremarkable. IMPRESSION: 1. There is mild age related parenchymal volume loss. Mild white matter changes are demonstrated consistent with age related small vessel white matter ischemic changes. 2. No acute findings. Electronically signed by: Manuel Richardson On 07/11/2020 20:52:23 PM Exam: XR Chest, 1 View Exam date and time: 07/11/2020 8:56 PM Age: 64 years old Clinical indication: Chest pain; Additional info: Altered mental status TECHNIQUE: Imaging protocol: XR of the chest Views: 1 view. COMPARISON: CR PORTABLE CHEST X-RAY 12/21/2019 6:15 AM FINDINGS: Lungs: Calcific densities at the left lung base may represent pleural calcifications. Lungs otherwise clear. Pleural space: Unremarkable. No pleural effusion. No pneumothorax. Heart/Mediastinum: Unremarkable. No cardiomegaly. Bones/joints: Status post sternotomy. IMPRESSION: No acute findings. No significant interval change. Electronically signed by: Manuel Richardson On 07/11/2020 21:02:33 PM SULMA COMPARISON: 09/07/2018 TECHNIQUE: Real time pollard scale ultrasound examination using curved array transducer. FINDINGS: Bilateral kidneys are normal in contour, size, echogenicity, and reniform shape. No hydronephrosis, nephrolithiasis, cystic or renal mass lesion. No perinephric fluid collection. Right kidney measures 12.7 x 6.6 x 5.7 cm. Left kidney measures 12.2 x 5.1 x 6.4 cm. Bladder is normal. IMPRESSION: 1. Normal renal ultrasound. <Electronically signed by Howie Dyer > 07/13/20 1335 INDICATION: edema r/o dvt COMPARISON: None. TECHNIQUE: Pollard scale and color Doppler evaluation of the bilateral lower extremities using linear high frequency transducer. FINDINGS: Ultrasound examination of the right and left lower extremity deep venous structures from the common femoral vein to the popliteal vein demonstrates normal maged sibility flow and wave patterns in response to respiration and augmentation. There is no evidence for deep venous thrombosis. IMPRESSION: No evidence for deep venous thrombosis. <Electronically signed by Howie Dyer > 07/15/20 0914 TIME SPENT ON DISCHARGE: 30 MINUTES Vital Signs/I&Os Vital Signs Date Time Temp Pulse Resp B/P (MAP) Pulse Ox O2 Delivery O2 Flow Rate FiO2 07/16/20 12:12 156/90 07/16/20 08:34 54 07/16/20 08:00 98.0 17 95 Room Air I&O- Last 24 Hours up to 6 AM 07/16/20 06:00 Intake Total 3660 ml Output Total 0 ml Balance 3660 ml Laboratory Data Labs 24H Laboratory Tests 2 07/15/20 16:32: Bedside Glucose (Misc Panel) 216H 07/15/20 20:37: Bedside Glucose (Misc Panel) 267H 07/16/20 05:30: Nucleated Red Blood Cells % (auto) 0.0, Anion Gap 3L, Glomerular Filtration Rate > 60.0, Calcium Level 8.9 07/16/20 11:33: Bedside Glucose (Misc Panel) 336H CBC/BMP Laboratory Tests 07/16/20 05:30 FSBS Laboratory Tests Test 07/15/20 16:32 07/15/20 20:37 07/16/20 11:33 Range/Units Bedside Glucose (Misc Panel) 216 267 336 80-115 MG/DL Microbiology Microbiology 07/13/20 Campylobacter (PCR), Received Pending 07/13/20 Clostridium difficile Toxin A&B PCR, Received Pending 07/13/20 Plesiomonas shigelloides (PCR), Received Pending 07/13/20 Salmonella (PCR)(ALONDRA), Received Pending 07/13/20 Vibrio Species (PCR), Received Pending 07/13/20 Vibrio Cholerae (PCR), Received Pending 07/13/20 Yersinia enterocolitica (PCR), Received Pending 07/13/20 Enteroaggregative E. coli (PCR), Received Pending 07/13/20 Enteropathogenic E. coli (PCR), Received Pending 07/13/20 Enterotoxigenic E. coli (PCR), Received Pending 07/13/20 E. coli Shiga-like Toxin (PCR), Received Pending 07/13/20 Escherichia coli 0157 (PCR), Received Pending 07/13/20 Enteroinvasive E. coli/Shigella PCR, Received Pending 07/13/20 Cryptosporidium (PCR), Received Pending 07/13/20 Cyclospora cayetanensis (PCR), Received Pending 07/13/20 Entamoeba histolytica (PCR), Received Pending 07/13/20 Giardia lamblia (PCR), Received Pending 07/13/20 Adenovirus Type F 40/41 (PCR), Received Pending 07/13/20 Astrovirus (PCR), Received Pending 07/13/20 Norovirus GI/GII (PCR), Received Pending 07/13/20 Rotavirus A (PCR), Received Pending 07/13/20 Sapovirus I/II/IV/V (PCR), Received Pending 07/13/20 Blood Culture - Preliminary, Resulted No Growth after 72 hours. All specime... 07/13/20 Blood Culture - Preliminary, Resulted No Growth after 72 hours. All specime... 07/12/20 Campylobacter (PCR), Received Pending 07/12/20 Clostridium difficile Toxin A&B PCR, Received Pending 07/12/20 Plesiomonas shigelloides (PCR), Received Pending 07/12/20 Salmonella (PCR)(ALONDRA), Received Pending 07/12/20 Vibrio Species (PCR), Received Pending 07/12/20 Vibrio Cholerae (PCR), Received Pending 07/12/20 Yersinia enterocolitica (PCR), Received Pending 07/12/20 Enteroaggregative E. coli (PCR), Received Pending 07/12/20 Enteropathogenic E. coli (PCR), Received Pending 07/12/20 Enterotoxigenic E. coli (PCR), Received Pending 07/12/20 E. coli Shiga-like Toxin (PCR), Received Pending 07/12/20 Escherichia coli 0157 (PCR), Received Pending 07/12/20 Enteroinvasive E. coli/Shigella PCR, Received Pending 07/12/20 Cryptosporidium (PCR), Received Pending 07/12/20 Cyclospora cayetanensis (PCR), Received Pending 07/12/20 Entamoeba histolytica (PCR), Received Pending 07/12/20 Giardia lamblia (PCR), Received Pending 07/12/20 Adenovirus Type F 40/41 (PCR), Received Pending 07/12/20 Astrovirus (PCR), Received Pending 07/12/20 Norovirus GI/GII (PCR), Received Pending 07/12/20 Rotavirus A (PCR), Received Pending 07/12/20 Sapovirus I/II/IV/V (PCR), Received Pending 07/12/20 Stool Occult Blood (ALONDRA) - Final, Complete 07/11/20 Blood Culture - Final, Complete Staphylococcus Epidermidis 07/11/20 Blood Culture - Final, Complete Staphylococcus Haemolyticus Discharge Medications Scheduled Alpha Lipoic Acid (Alpha Lipoic Acid) 600 Mg Cap, 600 MG PO BID, (Reported) Amlodipine Besylate (Amlodipine Besylate) 10 Mg Tablet, 10 MG PO QHS, (Reported) Aspirin (Aspirin EC) 81 Mg Tablet.dr, 81 MG PO DAILY, (Reported) Canagliflozin (Invokana) 300 Mg Tablet, 300 MG PO DAILY, (Reported) Cholecalciferol (Vitamin D3) (Vitamin D3) 1,000 Unit Tablet, 1,000 UNITS PO QHS, (Reported) Exenatide Microspheres (Bydureon Bcise) 2 Mg/0.85 Ml Auto.injct, 2 MG SC 1XWK, (Reported) TAKES ON THURSDAY Insulin Glargine,Hum.rec.anlog (Toujeo Solostar) 300 Unit/Ml Inj, 100 UNIT SC QHS, (Reported) Insulin Lispro (Humalog Kwikpen U-200) 200 Unit/1 Ml Insuln.pen, 1 DOSE SC PC, (Reported) PER SLIDING SCALE Lamotrigine (Lamotrigine) 200 Mg Tablet, 200 MG PO QHS, (Reported) Metformin HCl (Metformin HCl ER) 500 Mg Tab.er.24h, 1,000 MG PO BID, (Reported) Metoprolol Tartrate (Metoprolol Tartrate) 50 Mg Tablet, 75 MG PO BID, (Reported) [place]-3 Fatty Acids/Fish Oil (Fish Oil 1,000 mg Capsule) 1 Each Capsule, 1,000 MG PO DAILY, (Reported) Quinapril Hcl (Quinapril HCl) 40 Mg Tablet, 40 MG PO QHS, (Reported) Tamsulosin HCl (Flomax) 0.4 Mg Capsule, 0.4 MG PO QHS, (Reported) Scheduled PRN Albuterol Sulf (Albuterol Sulfate) 2.5 Mg/3 Ml Vial.neb, 2.5 MG INH QID PRN for SHORTNESS OF BREATH, (Reported) Allergies Coded Allergies: iodine (Verified Allergy, Unknown, 05/26/19) shellfish derived (Verified Allergy, Unknown, 05/26/19) VÍCTOR NAVARRETE MD Jul 16, 2020 16:24
[2020-07-16 20:00] VITALS: BP 168/72
[2020-07-16] MEDS: TAMSULOSIN 0.4 MG CAP PO SCH (20:08)
[2020-07-16] MEDS: amLODIPine 10 MG TAB PO SCH (20:10)
[2020-07-16] MEDS: RAMELTEON 8 MG TAB (ROZEREM) PO SCH (20:11)
[2020-07-16] MEDS: VITAMIN D 1,000 INTERNATIONAL UNITS TABLET PO SCH (20:11)
[2020-07-16] MEDS: ACETAMINOPHEN TAB 650MG DOSE (2X325MG) PO PRN (20:23)
[2020-07-17] VITALS: BP 142/62
[2020-07-17] MEDS: ACETAMINOPHEN TAB 650MG DOSE (2X325MG) PO PRN ×4 (01:20→20:03)
[2020-07-17 04:00] VITALS: BP_SYST 130; BP_SYST 142; BP_DIAS 68; BP_DIAS 76
[2020-07-17 04:37] VITALS: BP 145/70
[2020-07-17 06:30] LABS: BASO # 0.1 10^3/uL (0.0-0.2); BASO % 0.6 % (0.0-1.0); EOS # 0.2 10^3/uL (0.0-0.5); EOS % 2.1 % (0.0-3.0); HEMATOCRIT 41.6 % (42.0-52.0); HEMOGLOBIN 13.3 g/dl (13.5-17.5); LYMPH # 0.9 10^3/uL (1.5-5.0); LYMPH % 8.4 % (24.0-44.0); MEAN CORPUSCULAR HEMOGLOBIN 29.7 pg (27.0-33.0); MEAN CORPUSCULAR VOLUME 92.9 fl (80.0-96.0); MONO # 0.7 10^3/uL (0.0-0.8); MONO % 6.2 % (0.0-5.0); NEUTROPHILS % 82.4 % (36.0-66.0); PLATELET COUNT, AUTOMATED 233 10^3/uL (150-450); RED BLOOD COUNT 4.48 10^6/uL (4.30-6.10)
[2020-07-17 06:56] LABS: CALCIUM LEVEL 9.2 MG/DL (8.8-10.2); CREATININE FOR GFR 1.34 MG/DL (0.70-1.30); GLOMERULAR FILTRATION RATE 57.3 (>49); POTASSIUM SERUM 4.1 MEQ/L (3.5-5.1)
[2020-07-17 07:03] LABS: HEMOGLOBIN A1c 7.5 %
[2020-07-17] MEDS: ASPIRIN 81 MG ENTERIC TAB PO SCH (08:20)
[2020-07-17] MEDS: HumaLOG INSULIN (NovoLOG) PER UNIT SC SCH ×4 (08:20→20:03)
[2020-07-17] MEDS: METOPROLOL TART 25 MG TABLET PO SCH ×2 (08:22→19:58)
--- NOTE | 2020-07-17 11:57 | MHIPNPDOC ---
[facility] Progress Note Progress Note DATE OF Re-CONSULTATION: 07/17/20 CONSULTATION REQUESTED BY: Dr. Valles REASON FOR CONSULTATION: lithium toxicity. RELEVANT HISTORY: the patient a 64-year-old man with a history of reported bipolar disorder presents with lithium toxicity after reportedly having 3 days of increasing weakness in the setting of 3 months of chronic diarrhea. The patient had presented and thought that he was having a stroke however is determined that his lithium levels are quite high where he subsequently was admitted to medicine. I attempted to see him but he was frankly delirious, he made recovery on the medical unit. The resident that had called the consult mentioned concerns that he had stated that he had suicidal ideation several days prior, but it appeared at the time he was overtly confused and delirious. The patient was met with again, where he reported that he had not attempted to harm himself and had presented on his own. He reports having good treatment with Lamictal and lithium in the past with his current psychiatrist. He reported that he didn't have any suicidal ideation, it appeared that during that time he had visual hallucinations, of which he was aware that they were related to confusion, he had had a previous episode of lithium toxicity 2009. Discussed with hospitalist and patient's current nurse, patient has been appropriate and orientated to surroundings, with no notable safety issues solicited. PAST PSYCHIATRIC HISTORY: reported diagnosis of bipolar disorder made in 1999, tried on a number of different agents including Abilify, Depakote and others. Currently on Lamictal and lithium, with roughly 1500 mg nightly of the former. Denies any history of inpatient admissions or suicide attempts. PAST MEDICAL HISTORY: type II diabetes and hypertension FAMILY HISTORY: denies PERSONAL AND SOCIAL HISTORY: The patient was born and raised in [place]. Resides in: [place] Marital Status: M Children: adult children Employment: unemployed, but has a large fund of money. 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 MENTAL STATUS EXAMINATION: General: [Well dressed with good hygiene] Speech: [Spontaneous and fluid] Thought processes: [Linear and logical] Thought content: [Future orientated] Abstract reasoning, and computation: [Intact] Description of associations: [Intact] Description of abnormal or psychotic thoughts:[Denies any suicidal or homicidal ideation. Denies any auditory or visual hallucinations. Does not appear to be responding to internal stimuli. Does not appear to be endorsing any bizarre or paranoid ideation.] Judgment: [fair] Insight: [fair] Orientation: [Alert and orientated 3] Recent and remote memory: [Intact] Attention span and concentration: [Intact] Fund of knowledge: [Adequate] Mood: ["okay"] Affect: [Euthymic with a full range] DIAGNOSIS: 1. Encephalopathy secondary to lithium toxicity. PLAN: 1. Likely related to lithium toxicity secondary to JEROME inhibitor as patient has high blood pressure and is on an jerome agent, I would recommend discontinuing his home medications, at this time with a close follow up with his provider Dr. Riggins, as he is tried multiple previous maintenance agents he doesn't have symptoms of depression or florina at this time and has denied them. He said multiple episodes of lithium toxicity over the years and it appears that his use of an JEROME inhibitor as well as other medications put him at increased risk, especially in the setting of even mild diarrhea of lithium toxicity. It's not unusual at all to have lithium toxicity delayed by several weeks from the start or increase of an JEROME inhibitor due to the up regulation of receptors in the kidney and the built up over time of lithium, reviewing his lithium levels of the last several months. It appears that he's likely been the victim of this, as his levels have been rising without his dose rising concurrently as far as I'm able to tell. I do not believe this is a suicide attempt as reviewing the chart, discussing with nurses and hospitalist. There has been no concern of michael mckay, as the patient had come in thinking that he had had a stroke, his observation is demonstrate him being encephalopathy, but since returning he is generally done fairly well. I would estimate his risk given no history of inpatient psychiatric admission or suicide attempts, confirmed by notes as low as he is well supported and closely connected with his psychiatrist. I offered him inpatient psychiatric admission in order to adjust his medication, however, after discussion, he was open to making an earlier point with his psychiatrist, he has one scheduled for 28 July reports that he could likely get in sooner in order to have a new medication considered. Given the risk and benefit of having him resume lithium given the toxicity as well as the concurrent use of an JEROME inhibitor I would recommend against having and continued his medications at home, Lamictal was stopped due to the fluctuating levels and will likely need to be replaced or restarted judiciously to avoid rash. The patient declines voluntary admission to him you and thus will follow closely with outpatient for titration with the understanding he can return for admission if he notices any symptoms in order to have medication titration. Normally I'd recommend Abilify as an ideal maintenance agent, however he is tried this and had sexual side effects, he reports Depakote has caused him, weight gain and that lithium had been a fairly helpful medicine for him. However he is open to discussing it with Dr. Riggins in order to find a safer agent as his medical conditions will likely continue to interfere with his use of lithium safely. Please reconsult this provider if any concerns or if safety issues arise before discharge to home Vital Signs Vital Signs Date Time Temp Pulse Resp B/P (MAP) Pulse Ox O2 Delivery O2 Flow Rate FiO2 07/17/20 08:22 57 139/65 07/17/20 04:37 98.0 18 97 Room Air Laboratory Data 24H Labs Laboratory Tests 2 07/16/20 16:36: Bedside Glucose (Misc Panel) 295H 07/16/20 19:52: Bedside Glucose (Misc Panel) 301H 07/17/20 05:59: Immature Granulocyte % (Auto) 0.3, Neutrophils (%) (Auto) 82.4H, Lymphocytes (%) (Auto) 8.4L, Monocytes (%) (Auto) 6.2H, Eosinophils (%) (Auto) 2.1, Basophils (%) (Auto) 0.6, Neutrophils # (Auto) 9.0H, Lymphocytes # (Auto) 0.9L, Monocytes # (Auto) 0.7, Eosinophils # (Auto) 0.2, Basophils # (Auto) 0.1, Nucleated Red Blood Cells % (auto) 0.0, Anion Gap 7L, Glomerular Filtration Rate 57.3, Es timated Mean Plasma Glucose 169H, Hemoglobin A1c 7.5, Calcium Level 9.2 CBC/BMP Laboratory Tests 07/17/20 05:59 Current Medications Current Medications Medications (Trade) Dose Ordered Sig/Carmen Route PRN Reason Start Time Stop Time Status Last Admin Dose Admin Acetaminophen (Tylenol Tab) 650 mg Q4H PRN PO PAIN OR FEVER 07/11/20 23:15 07/17/20 08:21 Al Hydrox/Mg Hydrox/Simethicone (Mylanta) 30 ml DAILY PRN PO DYSPEPSIA 07/11/20 23:15 07/13/20 12:23 DC Albuterol Sulfate (Proventil Neb) 2.5 mg QID PRN INH SHORTNESS OF BREATH 07/11/20 23:15 Amlodipine Besylate (Norvasc) 10 mg QHS PO 07/12/20 21:00 07/16/20 20:10 Aspirin (Ecotrin) 81 mg DAILY PO 07/12/20 09:00 07/17/20 08:20 Dextrose (Dextrose 50%) 25 ml ASDIRECTED PRN IV SEE LABEL COMMENTS 07/11/20 23:15 Docusate Sodium (Colace) 100 mg BID PO 07/12/20 09:00 07/12/20 09:24 DC Glucagon (Glucagon) 1 mg ASDIRECTED PRN SC SEE LABEL COMMENTS 07/11/20 23:15 Glucose (Glucose) 16 GM ASDIRECTED PRN PO SEE LABEL COMMENTS 07/11/20 23:15 Home Med (Med Rec Complete!) ASDIRECTED XX 07/11/20 23:00 07/11/20 22:52 DC Insulin Detemir (Levemir Insulin) 40 units QHS SC 07/17/20 21:00 Insulin Human Lispro (HumaLOG INSULIN) SEE PROTOCOL TABLE AC SC 07/12/20 07:30 07/17/20 08:20 Insulin Human Lispro (HumaLOG INSULIN) SEE PROTOCOL TABLE QHS SC 07/11/20 21:00 07/16/20 20:08 Lamotrigine (LaMICtal) 200 mg QHS PO 07/12/20 21:00 07/13/20 09:18 DC 07/12/20 20:45 Magnesium Hydroxide (Milk Of Magnesia) 30 ml DAILY PRN PO CONSTIPATION 07/11/20 23:15 07/13/20 12:23 DC Metoprolol Tartrate (Lopressor) 75 mg BID PO 07/12/20 09:00 07/12/20 17:01 DC 07/12/20 08:07 Metoprolol Tartrate (Lopressor) 75 mg BID PO 07/13/20 18:00 07/16/20 20:10 Ramelteon (Rozerem) 8 mg QHS PO 07/13/20 21:00 07/16/20 20:11 Sodium Chloride 1,000 ml @ 80 mls/hr [id number] IV 07/12/20 02:15 07/12/20 02:27 DC Sodium Chloride 1,000 ml @ 100 mls/hr Q10H IV 07/11/20 23:45 07/15/20 09:07 DC 07/15/20 02:01 Tamsulosin HCl (Flomax) 0.4 mg QHS PO 07/12/20 21:00 07/16/20 20:08 Vitamin D (Vitamin D) 1,000 units QHS PO 07/12/20 21:00 07/16/20 20:11 Allergies Coded Allergies: iodine (Verified Allergy, Unknown, 05/26/19) shellfish derived (Verified Allergy, Unknown, 05/26/19) BRIGETTE WHITE DO Jul 17, 2020 11:57
[2020-07-17 14:00] VITALS: BP 163/68
[2020-07-17] MEDS: VITAMIN D 1,000 INTERNATIONAL UNITS TABLET PO SCH (19:57)
[2020-07-17] MEDS: amLODIPine 10 MG TAB PO SCH (19:58)
[2020-07-17] MEDS: TAMSULOSIN 0.4 MG CAP PO SCH (19:58)
[2020-07-17] MEDS: RAMELTEON 8 MG TAB (ROZEREM) PO SCH (19:58)
--- NOTE | 2020-07-17 20:55 | IPNPDOC ---
Subjective Date Seen The patient was seen on 07/17/20. Subjective Chief Complaint/HPI Mr. Chaudhary is a 64 year old male with bipolar disorder and chronic diarrhea who is here with lithium toxicity and SULMA. Today, he is more cognitively clear. He denies any fever, chest pain, dyspnea, or abdominal pain. No current dysuria, but says he takes cranberry juice to help prevent dysuria. Reached out to psych. Psych was planning for Abilify, but patient had a poor experience with Abilify. He is a high risk of developed lithium toxicity again, psych recommended holding both lithium and lamotrigine until he sees his outpatient psych for recommendations for medication. Objective Physical Examination General Exam: Positive: Cooperative Eye Exam: Positive: EOMI; Negative: Sclera icteric ENT Exam: Positive: Atraumatic Neck Exam: Positive: Supple Chest Exam: Positive: Clear to auscultation; Negative: Rales, Rhonchi, Wheezing Heart Exam: Positive: Rate Normal, Regular Rhythm Abdomen Exam: Positive: Normal bowel sounds, Soft; Negative: Tenderness Extremity Exam: Positive: Edema (mild bilateral edema) Neuro Exam: Positive: Normal Speech, Cranial Nerves 3-12 NL Psych Exam: Positive: Mental status NL, Mood NL Assessment /Plan Assessment Mr. Chaudhary is a 64 year old male with bipolar disorder and chronic diarrhea who is here with lithium toxicity and SULMA. His metabolic encephalopathy has improved and toxicity is most likely not intentional. Toxicity is most likely from acute renal injury secondary to diarrhea. Diarrhea has resolved, but jalil anderson has been dealing with chronic diarrhea for the past 2 months. Patient was on cholestyramine, but I do not see this on his med list. Patient's diarrhea may return with starting lithium and he may to help toxicity again. Patient tells me that this is the second time. Discuss with psychiatry. Recommended holding both lithium and lamotrigine and having patient see outpatient psychiatry as soon as possible. Plan/VTE VTE Prophylaxis Ordered?: Yes Plan 1. [place] toxicity [place] level on admission was about 3 Secondary to acute kidney injury Spoke with psychiatry. Continue holding at this time 2. Acute kidney injury Resolving During hospitalization, creatinine increased to 1.8 Continue trending BMP 3. Bipolar Psychiatry consulted, respirations appreciated In the past, patient did not respond well to Abilify Psychiatry recommended holding lithium and lamotrigine and having patient follow up with outpatient psychiatry as soon as possible Patient does not need IMHU as there is no intentional overdose 4. Diabetes mellitus Continue Levemir and sliding scale insulin 5. Hypertension Continue amlodipine and metoprolol titrate 6. Insomnia Continue ramelteon 7. DVT prophylaxis SCDs and teds Disposition: Anticipate discharge tomorrow morning VS, I&O, 24H, Fishbone Vital Signs/I&O Vital Signs Date Time Temp Pulse Resp B/P (MAP) Pulse Ox O2 Delivery O2 Flow Rate FiO2 07/17/20 19:58 62 07/17/20 19:58 135/56 07/17/20 14:00 98.8 18 65 Room Air I&O- Last 24 Hours up to 6 AM 07/17/20 06:00 Intake Total 2720 ml Output Total 0 ml Balance 2720 ml Laboratory Data 24H LABS Laboratory Tests 2 07/17/20 05:59: Immature Granulocyte % (Auto) 0.3, Neutrophils (%) (Auto) 82.4H, Lymphocytes (%) (Auto) 8.4L, Monocytes (%) (Auto) 6.2H, Eosinophils (%) (Auto) 2.1, Basophils (%) (Auto) 0.6, Neutrophils # (Auto) 9.0H, Lymphocytes # (Auto) 0.9L, Monocytes # (Auto) 0.7, Eosinophils # (Auto) 0.2, Basophils # (Auto) 0.1, Nucleated Red Blood Cells % (auto) 0.0, Anion Gap 7L, Glomerular Filtration Rate 57.3, Estimated Mean Plasma Glucose 169H, Hemoglobin A1c 7.5, Calcium Level 9.2 07/17/20 12:42: Bedside Glucose (Misc Panel) 247H 07/17/20 16:46: Bedside Glucose (Misc Panel) 314H 07/17/20 19:55: Bedside Glucose (Misc Panel) 361H CBC/BMP Laboratory Tests 07/17/20 05:59 Microbiology Microbiology 07/13/20 Campylobacter (PCR) - Final, Complete 07/13/20 Clostridium difficile Toxin A&B PCR - Final, Complete 07/13/20 Plesiomonas shigelloides (PCR) - Final, Complete 07/13/20 Salmonella (PCR)(ALONDRA) - Final, Complete 07/13/20 Vibrio Species (PCR) - Final, Complete 07/13/20 Vibrio Cholerae (PCR) - Final, Complete 07/13/20 Yersinia enterocolitica (PCR) - Final, Complete 07/13/20 Enteroaggregative E. coli (PCR) - Final, Complete 07/13/20 Enteropathogenic E. coli (PCR) - Final, Complete 07/13/20 Enterotoxigenic E. coli (PCR) - Final, Complete 07/13/20 E. coli Shiga-like Toxin (PCR) - Final, Complete 07/13/20 Escherichia coli 0157 (PCR) - Final, Complete 07/13/20 Enteroinvasive E. coli/Shigella PCR - Final, Complete 07/13/20 Cryptosporidium (PCR) - Final, Complete 07/13/20 Cyclospora cayetanensis (PCR) - Final, Complete 07/13/20 Entamoeba histolytica (PCR) - Final, Complete 07/13/20 Giardia lamblia (PCR) - Final, Complete 07/13/20 Adenovirus Type F 40/41 (PCR) - Final, Complete 07/13/20 Astrovirus (PCR) - Final, Complete 07/13/20 Norovirus GI/GII (PCR) - Final, Complete 07/13/20 Rotavirus A (PCR) - Final, Complete 07/13/20 Sapovirus I/II/IV/V (PCR) - Final, Complete 07/13/20 Blood Culture - Preliminary, Resulted No Growth after 72 hours. All specime... 07/13/20 Blood Culture - Preliminary, Resulted No Growth after 72 hours. All specime... 07/12/20 Campylobacter (PCR) - Final, Complete 07/12/20 Clostridium difficile Toxin A&B PCR - Final, Complete 07/12/20 Plesiomonas shigelloides (PCR) - Final, Complete 07/12/20 Salmonella (PCR)(ALONDRA) - Final, Complete 07/12/20 Vibrio Species (PCR) - Final, Complete 07/12/20 Vibrio Cholerae (PCR) - Final, Complete 07/12/20 Yersinia enterocolitica (PCR) - Final, Complete 07/12/20 Enteroaggregative E. coli (PCR) - Final, Complete 07/12/20 Enteropathogenic E. coli (PCR) - Final, Complete 07/12/20 Enterotoxigenic E. coli (PCR) - Final, Complete 07/12/20 E. coli Shiga-like Toxin (PCR) - Final, Complete 07/12/20 Escherichia coli 0157 (PCR) - Final, Complete 07/12/20 Enteroinvasive E. coli/Shigella PCR - Final, Complete 07/12/20 Cryptosporidium (PCR) - Final, Complete 07/12/20 Cyclospora cayetanensis (PCR) - Final, Complete 07/12/20 Entamoeba histolytica (PCR) - Final, Complete 07/12/20 Giardia lamblia (PCR) - Final, Complete 07/12/20 Adenovirus Type F 40/41 (PCR) - Final, Complete 07/12/20 Astrovirus (PCR) - Final, Complete 07/12/20 Norovirus GI/GII (PCR) - Final, Complete 07/12/20 Rotavirus A (PCR) - Final, Complete 07/12/20 Sapovirus I/II/IV/V (PCR) - Final, Complete 07/12/20 Stool Occult Blood (ALONDRA) - Final, Complete 07/11/20 Blood Culture - Final, Complete Staphylococcus Epidermidis 07/11/20 Blood Culture - Final, Complete Staphylococcus Haemolyticus TOD MITCHELL DO Jul 17, 2020 20:55
[2020-07-17] MEDS ORDERED: LEVEMIR (INSULIN DETEMIR) 1 UNITS/0.01ML SC SCH (21:00)
[2020-07-17 21:14] VITALS: BP 135/56
[2020-07-18] MEDS: ACETAMINOPHEN TAB 650MG DOSE (2X325MG) PO PRN ×2 (04:07→08:13)
[2020-07-18 06:00] VITALS: BP 136/67
[2020-07-18 07:57] LABS: CALCIUM LEVEL 9.3 MG/DL (8.8-10.2); CREATININE FOR GFR 1.29 MG/DL (0.70-1.30); GLOMERULAR FILTRATION RATE 59.9 (>49); POTASSIUM SERUM 4.3 MEQ/L (3.5-5.1)
[2020-07-18] MEDS: HumaLOG INSULIN (NovoLOG) PER UNIT SC SCH ×2 (08:12→12:00)
[2020-07-18] MEDS: ASPIRIN 81 MG ENTERIC TAB PO SCH (08:12)
[2020-07-18 08:13] VITALS: BP 131/74
[2020-07-18] MEDS: METOPROLOL TART 25 MG TABLET PO SCH (08:13)
--- NOTE | 2020-07-18 21:48 | DS.PDOC ---
Discharge Summary General Date of Admission Jul 11, 2020 at 22:45 Date of Discharge Jul 18, 2020 Specialist/[facility], Dr. Ambrose Discharge Summary PROCEDURES PERFORMED DURING STAY: None ADMITTING DIAGNOSES: 1. [place] toxicity 2. SULMA 3. Acute toxic metabolic encephalopathy 4. Chronic diarrhea 5. Peripheral neuropathy 6. Insulin dependent diabetes mellitus type 2 7. Bipolar 8. Gait instability DISCHARGE DIAGNOSES: 1. [place] toxicity 2. SULMA 3. Acute toxic metabolic encephalopathy 4. Chronic diarrhea 5. Peripheral neuropathy 6. Insulin dependent diabetes mellitus type 2 7. Bipolar 8. Gait instability COMPLICATIONS/CHIEF COMPLAINT: [place] Toxicity. HISTORY OF PRESENT ILLNESS: Mr. Chaudhary is a 64-year-old male with bipolar, insulin-dependent diabetes mellitus, aortic stenosis, and hypertension who comes to the ED for feeling weak and altered. He reports a three-month history of diarrhea which has led to his progressive weakness and mental fog. He was put on cholestyramine for his chronic diarrhea. He says that he does have a history of lithium toxicity of which the last event was in 2009. He had a similar episode with diarrhea. HOSPITAL COURSE: During his hospitalization, his lithium and lamotrigine was held. He is given IV fluids. When psychiatry initially saw him on July 13, he was very confused. As his renal function improved and lithium level declined, his mental status improved. In addition his diarrhea resolved. Psychiatry was able to evaluate the patient. Psychiatry did not feel that this was an intentional overdose but secondary to acute kidney injury. There is concern about putting him back on lithium. If his diarrhea which restart, he could develop acute kidney injury and subsequently lithium toxicity. Another option would be to decrease his lithium dosage. Psychiatry had recommended holding lithium and lamotrigine at this time and referring to his outpatient psychiatrist for management. Today, he felt well. Denied any fever or chills, chest pain, dyspnea, abdominal pain, or diarrhea. He was subsequently dis charged. Of note, he has not needed quinapril during his hospitalization. His heart rate was too low for metoprolol. Both of these medications were discontinued DISCHARGE MEDICATIONS: Please see below. ALLERGIES: Please see below. PHYSICAL EXAMINATION ON DISCHARGE: VITAL SIGNS: Please see below. GENERAL: Comfortable, in no apparent distress. HEENT: Head normocephalic/atraumatic, EOMI, sclera clear. NECK: Supple RESPIRATORY: Lungs clear to auscultation bilaterally, no rales, wheeze or rhonchi. CARDIOVASCULAR: Regular rate and rhythm. ABDOMEN: Soft, nontender, no guarding or rebound tenderness. Normal bowel sounds. MUSCLE SKELETAL: Muscle strength 5/5 in all extremities. NEUROLOGICAL: CN 312 grossly intact, no focal deficits noted. PSYCHOLOGICAL: Normal mood and affect LABORATORY DATA: Please see below. IMAGING: CT head 1. There is mild age related parenchymal volume loss. Mild white matter changes are demonstrated consistent with age related small vessel white matter ischemic changes. 2. No acute findings. Renal ultrasound 1. Normal renal ultrasound. PROGNOSIS: Stable ACTIVITY: As tolerated DIET: Diabetic diet DISCHARGE PLAN: Home DISPOSITION: 01 Home, Self-Care. DISCHARGE INSTRUCTIONS: 1. Follow with your PCP within 5 days 2. Follow-up with your psychiatrist as soon as possible. Please discuss management of your bipolar with your psychiatrist. DISCHARGE CONDITION: Stable Total time spent on discharge planning, discharge summary, and medication reconciliation: 45 minutes Vital Signs/I&Os Vital Signs Date Time Temp Pulse Resp B/P (MAP) Pulse Ox O2 Delivery O2 Flow Rate FiO2 07/18/20 08:13 69 131/74 07/18/20 06:00 97.3 18 96 Room Air I&O- Last 24 Hours up to 6 AM 07/18/20 06:00 Intake Total 3380 ml Balance 3380 ml Laboratory Data Labs 24H Laboratory Tests 2 07/18/20 07:09: Anion Gap 6L, Glomerular Filtration Rate 59.9, Calcium Level 9.3 07/18/20 11:58: Bedside Glucose (Misc Panel) 250H CBC/BMP Laboratory Tests 07/18/20 07:09 FSBS Laboratory Tests Test 07/18/20 11:58 Range/Units Bedside Glucose (Misc Panel) 250 80-115 MG/DL Microbiology Microbiology 07/13/20 Campylobacter (PCR) - Final, Complete 07/13/20 Clostridium difficile Toxin A&B PCR - Final, Complete 07/13/20 Plesiomonas shigelloides (PCR) - Final, Complete 07/13/20 Salmonella (PCR)(ALONDRA) - Final, Complete 07/13/20 Vibrio Species (PCR) - Final, Complete 07/13/20 Vibrio Cholerae (PCR) - Final, Complete 07/13/20 Yersinia enterocolitica (PCR) - Final, Complete 07/13/20 Enteroaggregative E. coli (PCR) - Final, Complete 07/13/20 Enteropathogenic E. coli (PCR) - Final, Complete 07/13/20 Enterotoxigenic E. coli (PCR) - Final, Complete 07/13/20 E. coli Shiga-like Toxin (PCR) - Final, Complete 07/13/20 Escherichia coli 0157 (PCR) - Final, Complete 07/13/20 Enteroinvasive E. coli/Shigella PCR - Final, Complete 07/13/20 Cryptosporidium (PCR) - Final, Complete 07/13/20 Cyclospora cayetanensis (PCR) - Final, Complete 07/13/20 Entamoeba histolytica (PCR) - Final, Complete 07/13/20 Giardia lamblia (PCR) - Final, Complete 07/13/20 Adenovirus Type F 40/41 (PCR) - Final, Complete 07/13/20 Astrovirus (PCR) - Final, Complete 07/13/20 Norovirus GI/GII (PCR) - Final, Complete 07/13/20 Rotavirus A (PCR) - Final, Complete 07/13/20 Sapovirus I/II/IV/V (PCR) - Final, Complete 07/13/20 Blood Culture - Final, Complete NO GROWTH AFTER 5 DAYS 07/13/20 Blood Culture - Final, Complete NO GROWTH AFTER 5 DAYS 07/12/20 Campylobacter (PCR) - Final, Complete 07/12/20 Clostridium difficile Toxin A&B PCR - Final, Complete 07/12/20 Plesiomonas shigelloides (PCR) - Final, Complete 07/12/20 Salmonella (PCR)(ALONDRA) - Final, Complete 07/12/20 Vibrio Species (PCR) - Final, Complete 07/12/20 Vibrio Cholerae (PCR) - Final, Complete 07/12/20 Yersinia enterocolitica (PCR) - Final, Complete 07/12/20 Enteroaggregative E. coli (PCR) - Final, Complete 07/12/20 Enteropathogenic E. coli (PCR) - Final, Complete 07/12/20 Enterotoxigenic E. coli (PCR) - Final, Complete 07/12/20 E. coli Shiga-like Toxin (PCR) - Final, Complete 07/12/20 Escherichia coli 0157 (PCR) - Final, Complete 07/12/20 Enteroinvasive E. coli/Shigella PCR - Final, Complete 07/12/20 Cryptosporidium (PCR) - Final, Complete 07/12/20 Cyclospora cayetanensis (PCR) - Final, Complete 07/12/20 Entamoeba histolytica (PCR) - Final, Complete 07/12/20 Giardia lamblia (PCR) - Final, Complete 07/12/20 Adenovirus Type F 40/41 (PCR) - Final, Complete 07/12/20 Astrovirus (PCR) - Final, Complete 07/12/20 Norovirus GI/GII (PCR) - Final, Complete 07/12/20 Rotavirus A (PCR) - Final, Complete 07/12/20 Sapovirus I/II/IV/V (PCR) - Final, Complete 07/12/20 Stool Occult Blood (ALONDRA) - Final, Complete 07/11/20 Blood Culture - Final, Complete Staphylococcus Epidermidis 07/11/20 Blood Culture - Final, Complete Staphylococcus Haemolyticus Discharge Medications Scheduled Alpha Lipoic Acid (Alpha Lipoic Acid) 600 Mg Cap, 600 MG PO BID, (Reported) Amlodipine Besylate (Amlodipine Besylate) 10 Mg Tablet, 10 MG PO QHS, (Reported) Aspirin (Aspirin EC) 81 Mg Tablet.dr, 81 MG PO DAILY, (Reported) Canagliflozin (Invokana) 300 Mg Tablet, 300 MG PO DAILY, (Reported) Cholecalciferol (Vitamin D3) (Vitamin D3) 1,000 Unit Tablet, 1,000 UNITS PO QHS, (Reported) Exenatide Microspheres (Bydureon Bcise) 2 Mg/0.85 Ml Auto.injct, 2 MG SC 1XWK, (Reported) TAKES ON THURSDAY Insulin Glargine,Hum.rec.anlog (Toujeo Solostar) 300 Unit/Ml Inj, 100 UNIT SC QHS, (Reported) Insulin Lispro (Humalog Kwikpen U-200) 200 Unit/1 Ml Insuln.pen, 1 DOSE SC PC, (Reported) PER SLIDING SCALE Metformin HCl (Metformin HCl ER) 500 Mg Tab.er.24h, 1,000 MG PO BID, (Reported) Burnside-3 Fatty Acids/Fish Oil (Fish Oil 1,000 mg Capsule) 1 Each Capsule, 1,000 MG PO DAILY, (Reported) Tamsulosin HCl (Flomax) 0.4 Mg Capsule, 0.4 MG PO QHS, (Reported) Scheduled PRN Albuterol Sulf (Albuterol Sulfate) 2.5 Mg/3 Ml Vial.neb, 2.5 MG INH QID PRN for SHORTNESS OF BREATH, (Reported) Allergies Coded Allergies: iodine (Verified Allergy, Unknown, 05/26/19) shellfish derived (Verified Allergy, Unknown, 05/26/19) TOD MITCHELL DO Jul 18, 2020 21:48
== END 2020-07-18 13:16 | disposition home or self-care (01) | DRG 682 ==
LOC: M ED 19:04 → M ED INP 22:45 → ENRESERV 23:42 → M PCU 07-12 00:20 → M MSPAV 07-17 04:36
PROVIDERS: ADMIT Internal Medicine; ATTEND Internal Medicine
DX: N17.9 Acute kidney failure, unspecified (principal); G92 Toxic encephalopathy; R19.7 Diarrhea, unspecified; E11.51 Type 2 diabetes mellitus with diabetic peripheral angiopathy without gangrene; R26.89 Other abnormalities of gait and mobility; F31.9 Bipolar disorder, unspecified; Z79.4 Long term (current) use of insulin; T43.595A Adverse effect of other antipsychotics and neuroleptics, initial encounter; Z79.82 Long term (current) use of aspirin; Z79.899 Other long term (current) drug therapy; Z91.013 Allergy to seafood; Z88.8 Allergy status to other drugs, medicaments and biological substances; E78.5 Hyperlipidemia, unspecified; N40.0 Benign prostatic hyperplasia without lower urinary tract symptoms; D72.829 Elevated white blood cell count, unspecified; N18.30 Chronic kidney disease, stage 3 unspecified; E87.5 Hyperkalemia

== ENCOUNTER → 2020-11-23 | Outpatient (REF) | payer OTHER ==
[~2020-11-23] MED LIST changes: +AMLO1TAB25 PO; +ASPI-161 PO; +BYDU2INJ7 SC; +D31000TA2 PO; +FISH1000 PO; +FLOM0.4C39 PO; +HUMA50IN4 SC; +INVO300T PO; +LAMO200T3 PO; +LITH300C PO; +METF-838 PO; +METO50TA7 PO; +QUIN1TAB4 PO
[2020-11-23 18:08] LABS: CREATININE, URINE 38.4 MG/DL; MALB URINE SIEMENS 43.6 MG/L; MAU/CREAT RATIO 113.5 MCG/MG (0.0-30.0)
== END ==
LOC: M LAB REF 16:50
PROVIDERS: ATTEND Nurse Practitioner Family
DX: E11.65 Type 2 diabetes mellitus with hyperglycemia (principal)

== ENCOUNTER → 2021-02-04 | Outpatient (CLI) | payer OTHER ==
--- NOTE | 2021-02-04 19:15 | REP ---
INDICATION: PLEURODYNIA. COMPARISON: Comparison chest x-ray July 11, 2020.. TECHNIQUE: Five views including PA chest. Unilateral left rib series. FINDINGS: PA chest radiograph demonstrates median sternotomy wires. Heart is borderline. The lungs are symmetrically aerated and free of infiltrate. Pleural angles are sharp. Pulmonary vasculature is not increased. Multiple views of the left ribcage demonstrate an aortic valve replacement. No bony destructive lesion or acute rib fracture is appreciated. IMPRESSION: Borderline heart size. Median sternotomy. No acute rib fracture or bony destructive lesions seen. Aortic valve replacement. <Electronically signed by Steve George > 02/04/21 191
== END ==
LOC: M RAD 17:39
PROVIDERS: ATTEND Nurse Practitioner Family
DX: R07.81 Pleurodynia (principal); Z95.2 Presence of prosthetic heart valve

== ENCOUNTER 2021-03-22 04:45 | Inpatient (IN) | payer OTHER ==
[~2021-03-22] VITALS: Ht 177.8 cm; Wt 95.5 kg
[2021-03-22 05:21] LABS: BASO # 0.1 10^3/uL (0.0-0.2); BASO % 0.6 % (0.0-1.0); EOS # 0.2 10^3/uL (0.0-0.5); EOS % 2.7 % (0.0-3.0); HEMOGLOBIN 12.3 g/dl (13.5-17.5); LYMPH # 0.9 10^3/uL (1.5-5.0); LYMPH % 9.5 % (24.0-44.0); MEAN CORPUSCULAR HEMOGLOBIN 26.3 pg (27.0-33.0); MEAN CORPUSCULAR VOLUME 87.6 fl (80.0-96.0); MONO # 0.9 10^3/uL (0.0-0.8); MONO % 9.5 % (2.0-8.0); NEUTROPHILS % 77.3 % (36.0-66.0); PLATELET COUNT, AUTOMATED 190 10^3/uL (150-450); RED BLOOD COUNT 4.68 10^6/uL (4.30-6.10)
[2021-03-22] MEDS ORDERED: METO1TAB87 PO (05:33)
[2021-03-22] MEDS ORDERED: QUIN1TAB4 PO (05:33)
[2021-03-22 05:40] LABS: INR 1.04
[2021-03-22 05:41] LABS: ERYTHROCYTE SEDIMENTATION RATE 6 mm/hr (0-20); PARTIAL THROMBOPLASTIN TIME 29.1 SECONDS (25.9-37.0)
[2021-03-22 05:56] LABS: ALBUMIN 3.6 GM/DL (3.2-5.2); ALT/SGPT 30 U/L (12-78); BILIRUBIN,DIRECT 0.1 MG/DL (0.0-0.2); BILIRUBIN,TOTAL 0.5 MG/DL (0.2-1.0); BLOOD UREA NITROGEN 20 MG/DL (7-18); CALCIUM LEVEL 9.3 MG/DL (8.8-10.2); CARBON DIOXIDE LEVEL 26 MEQ/L (21-32); CHLORIDE LEVEL 110 MEQ/L (98-107); CPK CREATINE PHOSPHOKINASE 173 U/L (39-308); CREATININE FOR GFR 1.18 MG/DL (0.70-1.30); GLOMERULAR FILTRATION RATE > 60.0 (>49); GLUCOSE, FASTING 164 MG/DL (70-100); LIPASE 99 U/L (73-393); MAGNESIUM LEVEL 2.4 MG/DL (1.8-2.4); MB/CK RELATIVE INDEX 2.31 (< OR =4); NT-PRO BNP 1728 PG/ML (<125); POTASSIUM SERUM 4.8 MEQ/L (3.5-5.1); SODIUM LEVEL 141 MEQ/L (136-145); TOTAL PROTEIN 6.8 GM/DL (6.4-8.2); TROPONIN I 0.04 NG/ML (< 0.10)
[2021-03-22] MEDS: METOPROLOL 5 MG/5 ML VIAL IV SCH ×4 (06:05→07:15)
[2021-03-22] MEDS ORDERED: NITROGLYCERIN 2% OINT 1 GM *U/D* PKT TOP ONE (06:40)
--- NOTE | 2021-03-22 06:46 | REPVR ---
PROCEDURE INFORMATION: Exam: XR Chest Exam date and time: 03/22/2021 5:18 AM Age: 65 years old Clinical indication: Other: Chest pain TECHNIQUE: Imaging protocol: XR of the chest. Views: 1 view. COMPARISON: 1. CR Ribs uni W-PA CHEST ONLY LEFT 02/04/2021 5:57 PM 2. CR PORTABLE CHEST X-RAY 07/11/2020 8:49:09 PM FINDINGS: Lungs: Stable lung aeration. Chronic pleural-parenchymal scarring at the left base. No evidence of airspace consolidation. Pleural spaces: No significant pleural effusions. No pneumothorax. Heart/Mediastinum: Cardiac size is at the upper limits of normal and appears stable. Stable mediastinal contours. Postoperative change from sternotomy and cardiac surgery with AVR. Bones/joints: Bones are stable. IMPRESSION: Stable chest. No acute abnormalities are identified. Electronically signed by: Howie Isaac On 03/22/2021 06:45:37 AM
--- NOTE | 2021-03-22 07:49 | REPVR ---
PROCEDURE INFORMATION: Exam: CT Chest Without Contrast; Diagnostic Exam date and time: 03/22/2021 6:44 AM Age: 65 years old Clinical indication: Shortness of breath; Additional info: Chest pain, SOB TECHNIQUE: Imaging protocol: Diagnostic computed tomography of the chest without contrast. 3D rendering (Not supervised by radiologist): MIP and/or 3D reconstructed images were created by the technologist. Radiation optimization: All CT scans at this facility use at least one of these dose optimization techniques: automated exposure control; mA and/or kV adjustment per patient size (includes targeted exams where dose is matched to clinical indication); or iterative reconstruction. COMPARISON: CR PORTABLE CHEST X-RAY 03/22/2021 5:11 AM FINDINGS: Lungs: Central airways are patent. Lungs are well aerated. Mild peripheral atelectasis and/or scar within the left lung and minimal dependent atelectasis within the right lung. No consolidation. Pleural spaces: Mild left pleural thickening/trace fluid with a small amount of loculated fissural fluid within the superior aspect of the oblique fissure. No pleural effusion on the right. No pneumothorax. Heart: Cardiomegaly. Postoperative change from sternotomy and cardiac surgery with AVR. Coronary artery calcification and/or stents. No pericardial effusion. Aorta: Atherosclerosis. Probable postoperative change involving the ascending thoracic aorta. No thoracic aortic aneurysm. Lymph nodes: Shotty mediastinal lymph nodes. No significant adenopathy. Bones/joints: Median sternotomy with an ununited manubrium and several broken sternotomy wires. Subacute healing fracture involving the anterolateral aspect of the left 5th rib. Few old/healed left-sided rib fractures as well. Degenerative change within the spine. Soft tissues: Bilateral gynecomastia. IMPRESSION: 1. Subacute healing fracture involving the anterolateral left 5th rib. 2. Mild left pleural thickening/trace fluid as well as a small amount of loculated fissural fluid within the superior aspect of the oblique fissure. 3. Mild pulmonary atelectasis/scar. No consolidation. 4. Cardiomegaly and atherosclerosis. Postoperative change from sternotomy and cardiac surgery with AVR. Probable postoperative change involving the ascending thoracic aorta. No thoracic aortic aneurysm. 5. Additional non-emergent findings, as discussed above. Electronically signed by: Howie Isaac On 03/22/2021 07:49:22 AM
--- NOTE | 2021-03-22 08:09 | ECGEPIP ---
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
--- NOTE | 2021-03-22 08:14 | ECGEPIP ---
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
[2021-03-22 08:42] LABS: CK-MB VALUE MASS 3.3 NG/ML (<3.6); MB/CK RELATIVE INDEX 3.08 (< OR =4); TROPONIN I 0.05 NG/ML (< 0.10)
[2021-03-22] MEDS ORDERED: FUROSEMIDE 40MG/4ML VIAL (J1940) IV ONE (09:25)
[2021-03-22] MEDS ORDERED: MOM 30ML SUSPENSION UDC PO PRN (09:45)
[2021-03-22] MEDS ORDERED: MAALOX 30 ML SUSP *UDC PO PRN (09:45)
[2021-03-22] MEDS ORDERED: CALC500T38 PO (10:25)
[2021-03-22] MEDS ORDERED: GNP250TA9 PO (10:25)
[2021-03-22] MEDS ORDERED: MAGN250T7 PO (10:25)
[2021-03-22] MEDS ORDERED: COMPTAB7 PO (10:25)
[2021-03-22] MEDS ORDERED: ACET-897 PO (10:25)
[2021-03-22] MEDS ORDERED: CBD OIL PO (10:25)
[2021-03-22] MEDS ORDERED: CENTTAB16 PO (10:25)
[2021-03-22] MEDS ORDERED: CHOL4POW3 PO (10:25)
[2021-03-22] MEDS ORDERED: HOME MED LIST COMPLETE! XX SCH (10:25)
[2021-03-22] MEDS ORDERED: RA T500C2 PO (10:25)
[2021-03-22] MEDS ORDERED: FINA5TAB2 PO (10:25)
[2021-03-22 11:43] LABS: RSV AMPLIFICATION NEGATIVE (NEGATIVE)
[2021-03-22] MEDS ORDERED: ALBUTEROL SULFATE 2.5 MG/0.5 ML INH NEB SOLN INH PRN (12:30)
[2021-03-22] MEDS: ASCORBIC ACID 500 MG TAB PO SCH (12:50)
[2021-03-22] MEDS ORDERED: AMIODARONE HCL 150 MG in IV 1 EA IV STA ×2 (12:54→15:55)
[2021-03-22] MEDS ORDERED: GLUCOSE 4GM CHEW TABLET PO PRN (13:30)
[2021-03-22] MEDS ORDERED: DEXTROSE 50% 50 ML SYRINGE IV PRN (13:30)
[2021-03-22] MEDS ORDERED: GLUCAGON INJ 1MG VIAL SC PRN (13:30)
--- NOTE | 2021-03-22 13:39 | HPEPDOC ---
[facility] Medical History & Physical Date of Admission Mar 22, 2021 Date of Service: Mar 22, 2021 Attending Physician: EMELIA BELTRAN DO History and Physical CHIEF COMPLAINT: Chest pain HISTORY OF PRESENT ILLNESS: Patient is a 65-year-old male who presents to the hospital with a 10-day history of chest pain patient points to an area on the left side of his chest. Patient states that he has been noticing some increased shortness of breath especially with exertion. Patient states that when he exerts himself, he has noticed that his shortness of breath is worse. Patient states that over the last 10 days his breathing has become so bad to the point where he is unable to walk the 300 feet up a slight hill from his mailbox. Patient states he is able get down to the mailbox without any difficulty. Patient states that prior to the last 10 days, he did not have any difficulty going up and down the driveway. Patient states that when he goes up to the mailbox and back, he has to rest for about 2 minutes before he is able to get up again and continue walking. Patient says the chest pain does not change with the activity. Patient says he when he got up to go the bathroom about 10 days ago noticed the pain that started on the left side of the body on all the way down to his foot and then came back up to his chest. Patient is otherwise doing well at this time. PAST MEDICAL HISTORY: 1. Coronary artery disease. 2. Diabetes mellitus. 3. Hypertension. 4. Hyperlipidemia 5. BPH 6. Bipolar 1 7. Aortic stenosis PAST SURGICAL HISTORY: 1. Cardiac cath with multiple stent placements in 2017 and 2018. 2. Aortic valve and aneurysm repair 2013. 3. Colonoscopy. 4. 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 Patient is lives at home with his . Patient denies any smoking, alcohol, or illicit drug use. FAMILY HISTORY: Patient's father had coronary artery disease and diabetes. Patient's mother had diabetes and a CVA as well as an unknown cancer ALLERGIES: Please see below. REVIEW OF SYSTEMS: General: Patient denies fevers HEENT: Patient denies headaches Cardiovascular: Patient reports chest pain as above Respiratory: Patient reports shortness of breath as above GI: Patient denies abdominal pain, nausea, vomiting, diarrhea : Patient denies increased frequency or pain with urination Extremities: Patient reports the pain down his left leg and reports that his ankles have been more swollen than usual. Neurological: Patient denies numbness or tingling in legs Skin: Patient denies any new rashes or lesions. Hematologic: Patient denies any easy bruising. Lymphatic: Patient denies any lumps lumps or bumps in neck, axilla, or groin HOME MEDICATIONS: Please see below. PHYSICAL EXAMINATION: VITAL SIGNS: Temperature 98.1, pulse 50, respiratory rate 18, blood pressure 163/71, pulse oximetry 98% on room air. General: Alert and oriented male patient who was sitting in bed when I walked in the room. Patient not appear to be in any acute distress. HEENT: Normocephalic, atraumatic, moist mucous membranes. Neck: No lymphadenopathy or thyromegaly Cardiac: Regular rate irregular rhythm. No murmurs rubs or gallops. Patient's telemetry shows multiple PVCs. Pulm: Bibasilar crackles with clear lung alex in the upper lung alex. Abd: Nondistended, nontender to palpation, normal bowel sounds Ext: 1+ pitting edema around the ankles bilaterally Neuro: Patient has equal strength in the upper and lower extremities bilaterally. Patient reported equal sensation to light touch in upper and lower extremities. LABORATORY DATA: See below. IMAGING: Chest x-ray performed on 03/22/2021 is reported to show stable chest. No acute abnormalities are identified. CT of the chest without contrast performed on 03/22/2021 was reported to show subacute healing fracture involving anterior lateral left fifth rib. Mild pleural thickening/trace fluid as well as a small amount of loculated fissural fluid with the superior aspect of the oblique fissure. Mild pulmonary atelectasis/scar. No consolidation. Cardiomegaly with arthrosclerosis. Postoperative change from sternotomy and cardiac surgery with aortic valve r eplacement. Probable postoperative change involving the ascending thoracic aorta. No thoracic aortic aneurysm. Median sternotomy with the ununited manubrium with several broken sternotomy wires. MICROBIOLOGY: Please see below. ASSESSMENT: Patient is a 65-year-old male who came in to the hospital with chest pain with negative cardiac marker panel x3 who appears to be mildly fluid overloaded with ectopy on telemetry. . PLAN: 1. Chest pain. Patient chest pain may be secondary to a subacute anterior lateral fifth rib fracture. Patient will be given Tylenol for pain control and we will continue to monitor. Repeat cardiac marker panel has been ordered. 2. Fluid overload. Patient does not carry a history of congestive heart failure however, patient does have coronary artery disease. Patient does have edema in his lower extremities and does appear to have crackles on exam. Patient was given a dose of IV Lasix in the emergency department and we will continue to monitor. Repeat doses of Lasix will be given as needed based on the patient's physical exam and whether or not he is fluid overloaded. 3. Multiple PVCs on telemetry. Patient is having multiple PVCs on telemetry. I did speak with Dr. Meyer of cardiology who suggested given the patient amiodarone after looking at the EKGs. If the amiodarone does not patient's ectopy, official consult will be placed. Patient is on metoprolol 12.5 mg twice daily which will be continued. Patient's electrolytes have been normal and the multiple PVCs may be secondary to his fluid overload state. 4. Diabetes mellitus. Patient will be on sliding scale insulin with hypoglycemic protocol. 5. Hypertension. Patient's home blood pressure medications will be continued with hold parameters. 6. Hyperlipidemia. Patient states he cannot be on a statin therapy due to allergies from this. 7. Coronary artery disease. Continue with baby aspirin. 8. DVT prophylaxis: Lovenox 9. CODE STATUS: Full code Disposition: Patient be admitted to the progressive care unit on telemetry. I do expect greater than 2 midnight stay. After the patient received 150 mg of IV amiodarone that was recommended by Dr. Meyer of cardiology, patient apparently had 30 second span where the PVCs went away. I called and spoke with Dr. Meyer who recommended giving another 150 mg of IV amiodarone. This did not change the PVCs and patient will be getting step 2 and step 3 of amiodarone loading dose overnight based on Dr. Meyer's recommendations. Vital Signs Vital Signs Date Time Temp Pulse Resp B/P (MAP) Pulse Ox O2 Delivery O2 Flow Rate FiO2 03/22/21 10:45 115 104/54 (71) 96 03/22/21 07:12 18 Room Air 03/22/21 04:46 98.6 Laboratory Data Labs 24H Laboratory Tests 2 03/22/21 05:10: Immature Granulocyte % (Auto) 0.4, Neutrophils (%) (Auto) 77.3H, Lymphocytes (%) (Auto) 9.5L, Monocytes (%) (Auto) 9.5H, Eosinophils (%) (Auto) 2.7, Basophils (%) (Auto) 0.6, Neutrophils # (Auto) 7.0, Lymphocytes # (Auto) 0.9L, Monocytes # (Auto) 0.9H, Eosinophils # (Auto) 0.2, Basophils # (Auto) 0.1, Nucleated Red Blood Cells % (auto) 0.0, Erythrocyte Sedimentation Rate 6, Prothrombin Time 14.0, Prothromb Time International Ratio 1.04, Activated Partial Thromboplast Time 29.1, Anion Gap 5L, Glomerular Filtration Rate > 60.0, Calcium Level 9.3, Magnesium Level 2.4, Total Bilirubin 0.5, Direct Bilirubin 0.1, Aspartate Amino Transf (AST/SGOT) 25, Alanine Aminotransferase (ALT/SGPT) 30, Alkaline Phosphatase 84, Total Creatine Kinase 173, Creatine Kinase MB 4.0H, Creatine Kinase MB Relative Index 2.31, Troponin I 0.04, C-Reactive Protein, Quantitative 0.60H, ON-Zre-C-Type Natriuretic Peptide 1728H, Total Protein 6.8, Albumin 3.6, Albumin/Globulin Ratio 1.1, Lipase 99, Thyroid Stimulating Hormone (TSH) 0.820 03/22/21 07:57: POC Troponin I (Misc) 0.01 03/22/21 08:02: Total Creatine Kinase 107, Creatine Kinase MB 3.3, Creatine Kinase MB Relative Index 3.08, Troponin I 0.05# 03/22/21 10:27: Coronavirus (COVID-19)(PCR) NEGATIVE, Influenza Type A (RT-PCR) NEGATIVE, Infl uenza Type B (RT-PCR) NEGATIVE, Respiratory Syncytial Virus (PCR) NEGATIVE CBC/BMP Laboratory Tests 03/22/21 05:10 Home Medications Scheduled Alpha Lipoic Acid (Alpha Lipoic Acid) 600 Mg Cap, 600 MG PO BID Amlodipine Besylate (Amlodipine Besylate) 10 Mg Tablet, 10 MG PO QHS Ascorbate Calcium (Vitamin C) 500 Mg Tablet, 500 MG PO DAILY Aspirin (Aspirin EC) 81 Mg Tablet.dr, 81 MG PO DAILY Canagliflozin (Invokana) 300 Mg Tablet, 300 MG PO DAILY Cholecalciferol (Vitamin D3) (Vitamin D3) 1,000 Unit Tablet, 1,000 UNITS PO BID Cholestyramine (with Sugar) (Cholestyramine Powder) 378 Gm Powder, 4 GM PO DAILY Exenatide Microspheres (Bydureon Bcise) 2 Mg/0.85 Ml Auto.injct, 2 MG SC 1XWK TAKES ON FRIDAYS Finasteride (Finasteride) 5 Mg Tablet, 5 MG PO Q2D AT BEDTIME Insulin Glargine,Hum.rec.anlog (Toujeo Solostar) 300 Unit/Ml Inj, 52 UNIT SC DAILY Insulin Lispro (Humalog Kwikpen U-200) 200 Unit/1 Ml Insuln.pen, 1 DOSE SC PC PER SLIDING SCALE Magnesium Oxide (Magnesium) 250 Mg Tablet, 250 MG PO QAM Magnesium Oxide (Magnesium) 250 Mg Tablet, 500 MG PO QHS Metformin HCl (Metformin HCl ER) 500 Mg Tab.er.24h, 1,000 MG PO BID Metoprolol Tartrate (Metoprolol Tartrate) 25 Mg Tablet, 12.5 MG PO BID Multivit-Min/FA/Lycopen/Lutein (Centrum Silver Ultra Men's Tab) 1 Each Tablet, 1 TAB PO DAILY Quinapril Hcl (Quinapril HCl) 40 Mg Tablet, 40 MG PO QHS Saw/Vit E/Sod Donna/Lyc/Beta/Pyg (Prostate Health Caplet) 1 Each Tablet, 1 TAB PO BID Tamsulosin HCl (Flomax) 0.4 Mg Capsule, 0.4 MG PO QHS Turmeric Root Extract (Turmeric) 500 Mg Capsule, 1,500 MG PO TID Scheduled PRN Acetaminophen (Tylenol Extra Strength) 500 Mg Tablet, 1,000 MG PO Q6H PRN for MILD PAIN (PS 1-4) Albuterol Sulf (Albuterol Sulfate) 2.5 Mg/3 Ml Vial.neb, 2.5 MG INH QID PRN for SHORTNESS OF BREATH Cannabidiol (Cbd Oil) Btl, 1 DOSE PO TID PRN for MILD BREAKTHROUGH PAIN Allergies Coded Allergies: ibuprofen (Verified Allergy, Intermediate, hives, 03/22/21) iodine (Verified Allergy, Unknown, 03/22/21) shellfish derived (Verified Allergy, Unknown, 03/22/21) Czlkghx-Ugu-Vhy Reductase Inhibitor (Verified Adverse Reaction, Mild, stomach pains and fatigue, 03/22/21) A-FIB/CHADSVASC A-FIB History Current/History of A-Fib/PAF?: No EMELIA BELTRAN DO Mar 22, 2021 13:39
[2021-03-22 14:49] LABS: CK-MB VALUE MASS 3.5 NG/ML (<3.6); MB/CK RELATIVE INDEX 4.43 (< OR =4); TROPONIN I 0.05 NG/ML (< 0.10)
[2021-03-22 16:00] VITALS: BP 142/82
[2021-03-22] MEDS ORDERED: AMIODARONE HCL 360 MG in IV 1 EA IV SCH (17:00)
[2021-03-22] MEDS: HumaLOG INSULIN (NovoLOG) PER UNIT SC SCH ×2 (17:57→20:16)
[2021-03-22] MEDS ORDERED: GABAPENTIN 100 MG CAP PO ONE (18:30)
[2021-03-22 20:00] VITALS: BP 128/75
[2021-03-22] MEDS: ENOXAPARIN 40MG/0.4ML SYRINGE (J1650 PER 10MG) SC SCH (20:19)
[2021-03-22] MEDS: TAMSULOSIN 0.4 MG CAP PO SCH (20:20)
[2021-03-22] MEDS: METOPROLOL TART 12.5 MG PER 1/2 TAB PO SCH (20:21)
[2021-03-22] MEDS: VITAMIN D 1,000 INTERNATIONAL UNITS TABLET PO SCH (20:21)
[2021-03-22] MEDS: QUINAPRIL 20 MG TAB PO SCH (22:41)
[2021-03-22] MEDS: AMIODARONE HCL 360 MG in IV 1 EA IV SCH (23:11)
[2021-03-23] VITALS: BP 167/72
[2021-03-23] MEDS: ACETAMINOPHEN 500 MG TAB PO PRN ×3 (00:47→16:20)
[2021-03-23 04:00] VITALS: BP 122/57
[2021-03-23 06:07] LABS: HEMATOCRIT 43.2 % (42.0-52.0); HEMOGLOBIN 12.9 g/dl (13.5-17.5); MEAN CORPUSCULAR HEMOGLOBIN 25.9 pg (27.0-33.0); MEAN CORPUSCULAR HGB CONC 29.9 g/dl (32.0-36.5); MEAN CORPUSCULAR VOLUME 86.7 fl (80.0-96.0); PLATELET COUNT, AUTOMATED 216 10^3/uL (150-450); RED BLOOD COUNT 4.98 10^6/uL (4.30-6.10); WHITE BLOOD COUNT 9.9 10^3/uL (4.0-10.0)
[2021-03-23 06:26] LABS: CALCIUM LEVEL 9.4 MG/DL (8.8-10.2); CREATININE FOR GFR 1.42 MG/DL (0.70-1.30); GLOMERULAR FILTRATION RATE 53.4 (>49); MAGNESIUM LEVEL 2.4 MG/DL (1.8-2.4); POTASSIUM SERUM 4.3 MEQ/L (3.5-5.1)
[2021-03-23 07:32] VITALS: BP 142/66
[2021-03-23] MEDS ORDERED: CHOLESTYRAMINE 4 GM PWD PKT PO SCH (08:00)
[2021-03-23] MEDS: ASPIRIN 81MG ENTERIC TABLET PO SCH (08:10)
[2021-03-23] MEDS: METOPROLOL TART 12.5 MG PER 1/2 TAB PO SCH ×2 (08:10→20:56)
[2021-03-23] MEDS: HumaLOG INSULIN (NovoLOG) PER UNIT SC SCH ×4 (08:10→20:55)
[2021-03-23] MEDS: MULTIVITAMINS/MINERALS THERAP 1 TAB PO SCH (08:10)
[2021-03-23] MEDS: ASCORBIC ACID 500 MG TAB PO SCH (08:10)
[2021-03-23] MEDS: VITAMIN D 1,000 INTERNATIONAL UNITS TABLET PO SCH ×2 (08:11→20:57)
[2021-03-23] MEDS: CHOLESTYRAMINE 4 GM PWD PKT PO SCH (12:12)
[2021-03-23] MEDS: AMIODARONE HCL 360 MG in IV 1 EA IV SCH (12:14)
--- NOTE | 2021-03-23 13:56 | IPNPDOC ---
Text Note Date of Service The patient was seen on 03/23/21. NOTE Subjective: 65-year-old male presented to hospital with a 10-day history of ch est pain to his left chest. Patient was found to have multiple PVCs on his EKG and his telemetry strip. Patient was also short of breath while he was walking when he initially presented. Patient states that the shortness of breath has improved. Patient did receive a dose of IV Lasix in the emergency department. Patient states that he is feeling better today but he is still having multiple PVCs on telemetry. Review of systems: General: Patient denies fevers HEENT: Patient denies headaches Cardiovascular: Patient denies chest pain Respiratory: Patient reports improved shortness of breath GI: Patient denies abdominal pain, nausea, vomiting, diarrhea : Patient denies increased frequency or pain with urination Extremities: Patient denies swelling or pain in extremities Neurological: Patient denies numbness or tingling in legs Physical exam: Vitals: See below General: Alert and oriented male patient who was sitting up in bed when I walked in the room. Patient did not appear to be in any acute distress. HEENT: Normocephalic, atraumatic, moist mucous membranes. Neck: No lymphadenopathy or thyromegaly Cardiac: Regular rate with an irregularly irregular rhythm, no murmurs, normal S1, normal S2 Pulm: Clear to auscultation bilaterally. No wheezes, rhonchi, rales Abd: Nondistended, nontender to palpation, normal bowel sounds Ext: No edema bilateral lower extremities Labs: See below Imaging: No new imaging has been performed Assessment/plan: 65-year-old male came to the hospital chest pain with negative cardiac markers x4 who appeared to be mildly fluid overloaded with ectopy on telemetry. 1. Chest pain. Patient's chest pain is getting better. This is most likely secondary to subacute anterior lateral fifth rib fracture. Patient will be given Tylenol for pain control. Repeat cardiac marker that was ordered was negative. 2. Fluid overload. Patient is a carry history of congestive heart failure however, patient states he drinks a lot of ice water. Patient appeared to be mildly fluid overloaded and received a dose of IV Lasix. No further diuretics are necessary as patient is no longer fluid overloaded. 3. Multiple PVCs on telemetry. In talking with Dr. Meyer who has seen the patient outpatient, patient will be loaded with amiodarone to help with the PVCs. Patient is asymptomatic and we will continue to monitor. Patient will continue on metoprolol 12.5 mg daily. 4. Diabetes mellitus. Sliding scale insulin with hypoglycemic protocol. 5. Hypertension. Home blood pressure medications with hold parameters have been ordered. 6. Hyperlipidemia. Patient cannot be on statin therapy due to allergies. 7. Coronary artery disease. Continue with metoprolol and baby aspirin DVT Prophylaxis: Lovenox Disposition: Pending improvement in the patient's telemetry. VS,Fishbone, I+O VS, Fishbone, I+O Laboratory Tests 03/23/21 05:37 Vital Signs Date Time Temp Pulse Resp B/P (MAP) Pulse Ox O2 Delivery O2 Flow Rate FiO2 03/23/21 08:10 97 142/66 03/23/21 07:32 98.5 18 95 Room Air I&O- Last 24 Hours up to 6 AM 03/23/21 06:00 Intake Total 502.233 ml Output Total 4450 ml Balance -3947.767 ml EMELIA BELTRAN DO Mar 23, 2021 13:56
[2021-03-23] MEDS: GABAPENTIN 100 MG CAP PO SCH ×2 (16:12→20:56)
[2021-03-23 20:00] VITALS: BP 158/70
[2021-03-23] MEDS: ENOXAPARIN 40MG/0.4ML SYRINGE (J1650 PER 10MG) SC SCH (20:54)
[2021-03-23] MEDS: QUINAPRIL 20 MG TAB PO SCH (20:57)
[2021-03-23] MEDS: TAMSULOSIN 0.4 MG CAP PO SCH (20:57)
[2021-03-23] MEDS: FINASTERIDE 5 MG TAB PO SCH (20:57)
[2021-03-23] MEDS ORDERED: AMIODARONE 200 MG TAB (PACERONE) PO SCH (21:00)
[2021-03-24] VITALS: BP 117/55
[2021-03-24] MEDS: ACETAMINOPHEN 500 MG TAB PO PRN ×2 (02:30→17:15)
[2021-03-24 04:54] LABS: HEMATOCRIT 38.6 % (42.0-52.0); HEMOGLOBIN 11.8 g/dl (13.5-17.5); MEAN CORPUSCULAR HEMOGLOBIN 26.4 pg (27.0-33.0); MEAN CORPUSCULAR HGB CONC 30.6 g/dl (32.0-36.5); MEAN CORPUSCULAR VOLUME 86.4 fl (80.0-96.0); PLATELET COUNT, AUTOMATED 184 10^3/uL (150-450); RED BLOOD COUNT 4.47 10^6/uL (4.30-6.10); WHITE BLOOD COUNT 11.5 10^3/uL (4.0-10.0)
[2021-03-24 05:26] LABS: CREATININE FOR GFR 1.62 MG/DL (0.70-1.30); GLOMERULAR FILTRATION RATE 45.9 (>49); MAGNESIUM LEVEL 2.5 MG/DL (1.8-2.4); POTASSIUM SERUM 4.9 MEQ/L (3.5-5.1)
[2021-03-24 08:00] VITALS: BP 119/57
[2021-03-24] MEDS ORDERED: NS 1,000 ML IV SCH (08:00)
[2021-03-24] MEDS: VITAMIN D 1,000 INTERNATIONAL UNITS TABLET PO SCH ×2 (08:28→20:31)
[2021-03-24] MEDS: ASPIRIN 81MG ENTERIC TABLET PO SCH (08:28)
[2021-03-24] MEDS: ASCORBIC ACID 500 MG TAB PO SCH (08:28)
[2021-03-24] MEDS: AMIODARONE 200 MG TAB (PACERONE) PO SCH ×2 (08:28→20:28)
[2021-03-24] MEDS: HumaLOG INSULIN (NovoLOG) PER UNIT SC SCH ×4 (08:28→20:26)
[2021-03-24] MEDS: MULTIVITAMINS/MINERALS THERAP 1 TAB PO SCH (08:28)
[2021-03-24] MEDS: GABAPENTIN 100 MG CAP PO SCH ×3 (08:29→20:28)
[2021-03-24] MEDS: METOPROLOL TART 12.5 MG PER 1/2 TAB PO SCH ×2 (08:29→20:28)
--- NOTE | 2021-03-24 08:31 | REP ---
INDICATION: SULMA. COMPARISON: Renal ultrasound dated 09/07/2018. TECHNIQUE: Multiple ultrasonographic images of the kidneys. FINDINGS: The right kidney measures 12.0 x 5.5 x 5.0 cm. The left kidney measures 11.8 x 5.6 by 6.7 cm. Renal echogenicity is normal bilaterally. There is no hydronephrosis or hydroureter on the right or the left. There are no solid or cystic renal masses on the right or the left. Bladder: No bladder wall nodules or masses are identified. With Doppler ultrasound where able to identify the left ureteral jet. The right ureteral jet could not be identified, however, there is no hydronephrosis. The prostate is enlarged measuring 4.7 x 3.6 by 4.8 cm for a volume of 42 cc. IMPRESSION: Negative bilateral renal ultrasound. The prostate is enlarged. <Electronically signed by Burt Wasserman > 03/24/21 0827
[2021-03-24 09:27] LABS: APPEARANCE, URINE CLEAR (CLEAR); BACTERIA, URINE AUTO NEGATIVE (NEGATIVE); BILIRUBIN, URINE AUTO NEGATIVE (NEGATIVE); BLOOD, URINE BLOOD NEGATIVE (NEGATIVE); COLOR, URINE YELLOW (YELLOW); GLUCOSE, URINE (UA) AUTO 3+ mg/dL (NEGATIVE); KETONE, URINE AUTO NEGATIVE (NEGATIVE); LEUKOCYTE ESTERASE, URINE AUTO NEGATIVE (NEGATIVE); NITRITE, URINE AUTO NEGATIVE (NEGATIVE); PROTEIN, URINE AUTO NEGATIVE (NEGATIVE); RBC, URINE AUTO 0 /HPF (0-3); SPECIFIC GRAVITY URINE AUTO 1.011 (1.002-1.035); SQUAMOUS EPITHELIAL CELL UR AU 0 /HPF (0-6); UROBILINOGEN, URINE AUTO 0.2 mg/dL (0.0-2.0); WBC, URINE AUTO 2 /HPF (0-3)
[2021-03-24 09:47] LABS: CREATININE,RANDOM URINE 67.5 MG/DL; SODIUM,RANDOM URINE 28 MEQ/L; UREA NITROGEN RANDOM URINE 427 MG/DL
[2021-03-24 12:00] VITALS: BP 144/57
[2021-03-24] MEDS: CHOLESTYRAMINE 4 GM PWD PKT PO SCH (12:08)
--- NOTE | 2021-03-24 13:04 | ECHO ---
ECHOCARDIOGRAM DATE OF PROCEDURE: 03/22/2021 Age: 65 Gender: Male Height: Weight: REFERRING PHYSICIAN: German Garcia M.D. PATIENT LOCATION: Emergency room, #3. REASON FOR THE TESTING: Chest pain. MEASUREMENTS: 2D Measurements: IVS 0.7 cm LV 6.2 cm LVPW 0.8 cm LA 4.8 cm Aorta 3.8 cm Doppler Measurements: Peak velocity across the aortic valve 2.2 m/sec Peak velocity across the LVOT 1.0 m/sec Peak gradient across the aortic valve 20 mmHg Mean gradient across the aortic valve 11 mmHg Maximum tricuspid valve velocity 2.1 m/sec 2D COMMENTS: 1. Mildly dilated left ventricle with normal left ventricular wall thickness. Left ventricular systolic ejection fraction is moderately depressed, estimated at 35-40%. There was global hypokinesis. 2. Mildly dilated left atrium and right atrium. The right ventricle also appeared to be mildly enlarged, but was brittney well. 3. The atrial septum appeared to be normal without evidence of defect or shunt. 4. Mildly dilated aortic root at 3.8 cm. 5. No pericardial effusion seen. 6. Bioprosthetic valve noted in the aortic valve position. Leaflet excursion was not well visualized. 7. Mildly calcified mitral annulus with normal anterior mitral valve leaflet motion. Normal tricuspid valve and pulmonic valve. The proximal pulmonary artery branches appear to be normal. 8. The inferior vena cava was not well visualized. DOPPLER: It detects moderate mitral regurgitation and moderate tricuspid regurgitation. The calculated pulmonary artery systolic pressure was normal, most likely underestimated. Assessment of the left ventricular diastolic function was limited in view of the underlying arrhythmias. IMPRESSION: 1. Moderate global left ventricular systolic function with a mildly enlarged left ventricle and global hypokinesis. Assessment of the left ventricular diastolic function was limited in view of the underlying arrhythmias. 2. Bioprosthetic valve noted in the aortic valve position. No aortic regurgitation detected. The gradient across the aortic valve was normal. Most likely normal functioning bioprosthetic aortic valve. 3. Mildly enlarged left atrium with mitral annulus calcification and moderate mitral regurgitation. 4. Moderate tricuspid regurgitation with a mildly enlarged right atrium. The right ventricle also appeared to be mildly enlarged, but was brittney well.
[2021-03-24 13:28] LABS: CREATININE FOR GFR 1.4 MG/DL (0.70-1.30); GLOMERULAR FILTRATION RATE 54.3 (>49); POTASSIUM SERUM 4.3 MEQ/L (3.5-5.1)
--- NOTE | 2021-03-24 16:11 | IPNPDOC ---
Text Note Date of Service The patient was seen on 03/24/21. NOTE Subjective: 65-year-old male presented hospital to 10-day history of chest pain to his left chest. Patient was found to have multiple PVCs on his EKG and telemetry strip. Patient was also short of breath while he was walking when initially presented. Patient states that the shortness of breath has improved. Patient states his only complaint today is some lower left quadrant abdominal pain which he states he feels before having a bowel movement. Patient is otherwise feeling well and does not have any other complaints today. Review of systems: General: Patient denies fevers HEENT: Patient denies headaches Cardiovascular: Patient denies chest pain Respiratory: Patient denies shortness of breath, cough GI: Patient reports abdominal pain as above, patient denies nausea, vomiting, diarrhea : Patient denies increased frequency or pain with urination Extremities: Patient denies swelling or pain in extremities Neurological: Patient denies numbness or tingling in legs Physical exam: Vitals: See below General: Alert and oriented male patient who was sitting in the bedside chair when I walked in the room. Patient not appear to be in any acute distress. HEENT: Normocephalic, atraumatic, moist mucous membranes. Neck: No lymphadenopathy or thyromegaly Cardiac: Regular rate with an irregularly irregular rhythm, no murmurs, normal S1, normal S2 Pulm: Clear to auscultation bilaterally. No wheezes, rhonchi, rales Abd: Nondistended, nontender to palpation, normal bowel sounds Ext: No edema bilateral lower extremities Labs: See below Imaging: Renal ultrasound was performed on 03/24/2021 and was reported to show negative bilateral renal ultrasound. The prostate is enlarged. Assessment/plan: 65-year-old male came to the hospital with chest pain with negative cardiac markers x4 who appeared to be mildly fluid overloaded with ectopy on telemetry who now has an acute kidney injury 1. Chest pain, patient's chest pain is getting better. This is most likely secondary to a subacute anterior lateral fifth rib fracture. Tylenol for pain control. Repeat cardiac markers negative. Continue to monitor patient's telemetry. 2. Acute kidney injury. Patient's creatinine has increased since admission. Patient was started on IV fluids earlier today. Nephrology has been consulted and has placed bladder scanning orders to rule out obstructive uropathy as the cause of the patient's SULMA. Quinapril has been stopped. We will continue to monitor. 3. Fluid overload. Patient does not carry a history of congestive heart failure however, he does drink a lot of ice water. Patient appeared to be mildly fluid overloaded and received a dose of IV Lasix. Patient does not appear fluid overloaded at this time so no more diuretics will be given. 4. Multiple PVCs on telemetry. Patient was started on amiodarone under the guidance of cardiology. Patient's biometric fingerprinting technician Dr. De will be contacted tomorrow for consult. 5. Diabetes mellitus. Sliding scale insulin with hypoglycemic protocol 6. Hypertension. Home blood pressure medications have been ordered. Quinapril will be stopped due to SULMA. Continue to monitor blood pressure. 7. Hyperlipidemia. Patient not be on statin therapy due to allergies. 8. Coronary artery disease. Continue with metoprolol and baby aspirin. DVT Prophylaxis: Lovenox Disposition: Pending clinical improvement. VS,Fishbone, I+O VS, Fishbone, I+O Laboratory Tests 03/24/21 04:27 03/24/21 12:47 Vital Signs Date Time Temp Pulse Resp B/P (MAP) Pulse Ox O2 Delivery O2 Flow Rate FiO2 03/24/21 12:00 98.0 94 20 144/57 (86) 95 Room Air I&O- Last 24 Hours up to 6 AM 03/24/21 06:00 Intake Total 2152 ml Output Total 900 ml Balance 1252 ml EMELIA BELTRAN DO Mar 24, 2021 16:11
[2021-03-24] MEDS ORDERED: SLF 3 ML SYR IV PRN (16:25)
[2021-03-24 17:07] VITALS: BP 149/68
[2021-03-24 20:00] VITALS: BP 143/67
[2021-03-24] MEDS: ENOXAPARIN 40MG/0.4ML SYRINGE (J1650 PER 10MG) SC SCH (20:27)
[2021-03-24] MEDS: SLF 3 ML SYR IV SCH (20:29)
[2021-03-24] MEDS: TAMSULOSIN 0.4 MG CAP PO SCH (20:41)
--- NOTE | 2021-03-24 22:38 | CR ---
NEPHROLOGY CONSULTATION DATE: 03/24/2021 REQUESTING PHYSICIAN: Dr. David Qiu CONSULTING PHYSICIAN: Dr. Quiles REASON FOR CONSULTATION: Management of acute renal failure. CHIEF COMPLAINT: Patient presented to the hospital two days ago with left-sided chest pain. HISTORY OF PRESENT ILLNESS: Harshal Erwin is a 65-year-old male with a past medical history of diabetes mellitus type 2, hypertension, coronary artery disease, bipolar disorder, multiple other comorbidities as mentioned below. No significant history of kidney disease in the past. Best baseline creatinine is around 1.1. He does not follow-up with nephrology as an outpatient. He presented to the hospital two days ago with 10 day history of progressive chest pain, which was left-sided, associated with shortness of breath. Patient also reported that he was having elevated blood pressures at home as well. He was admitted initially under the hospitalist service for possible congestive heart failure. Multiple PVCs on telemetry. Later on, CAT scan of the chest also showed that patient had left-sided rib fracture. Patient was loaded with I.V. Amiodarone after recommendations by cardiology for multiple PVCs on telemetry. His creatinine on arrival was 1.8, which bumped up to 1.4 yesterday. So nephrology service was called for further help in the management of this patient. I saw and evaluated the patient today morning at the bedside. He reports that his chest pain is getting better. He was getting I.V. fluid hydration when I saw him in the morning. PAST MEDICAL HISTORY: Coronary artery disease, diabetes mellitus type 2, hypertension, hyperlipidemia, BPH, bipolar disorder, history of aortic stenosis. PAST SURGICAL HISTORY: Status post cardiac catheterization and multiple stent placements in 2017 and 2018, aortic valve and aneurysm repair in 2014, history of colonoscopy and appendectomy. FAMILY HISTORY: No significant family history of end-stage renal disease. Positive history of coronary artery disease and diabetes in father and mother had diabetes and CVA. SOCIAL HISTORY: Patient is retired. He lives with his . He denies any smoking, illicit drug abuse or alcohol abuse. ALLERGIES: He is allergic to statins, Ibuprofen, iodine and shellfish. REVIEW OF SYSTEMS: CONSTITUTIONAL: He denies any fevers and chills. EYES: He denies any blurry vision, double vision. ENT: He denies any dysphagia, odynophagia. CVS: He had chest pain on arrival, but he denies any chest pain right now.. RESPIRATORY: He denies shortness of breath at this time. GI: He denies any nausea, vomiting. GENITOURINARY: He denies any dysuria, hematuria. He does report increased frequency of urine and enlarged prostate. MUSCULOSKELETAL: He denies any muscle aches and pains. HEMATOLOGICAL/ONCOLOGICAL: He denies any easy bleeding or bruising. ENDOCRINE: Reports history of diabetes. COP BREAKER: Denies any weakness or seizures. He does report peripheral neuropathy. All other review of systems is negative. PHYSICAL EXAMINATION: GENERAL: Patient is awake, alert, oriented x3, sitting up in the bed. VITAL SIGNS: Temperature 98.6 degrees Fahrenheit, blood pressure 149/68, pulse 99, respiratory rate 18, and saturating 98% on room air. INTAKE/OUTPUT: Urine output recorded as 1300 mL yesterday, 970 mL so far today. HEAD/NECK: Extraocular muscles intact. Pupils equally round and reactive to light. Mucous membranes are moist. Neck is supple. There is no JVD. CARDIOVASCULAR: S1, S2, regular rate. No edema of the bilateral lower extremities. RESPIRATORY: Chest is clear to auscultation bilaterally. Bilateral equal air entry. No rales or rhonchi. ABDOMEN: Soft, positive bowel sounds, nontender. No organomegaly. GENITOURINARY: Bladder is not palpable. Bedside bladder scan was done; only about 190 cc of urine was there in the bladder. MUSCULOSKELETAL: No clubbing or cyanosis. Pulses are 2+. COP BREAKER: No focal deficit. Power is 5/5 in all extremities. LABORATORY REVIEW: CBC showed WBC 11.5, hemoglobin 11.8, platelets 194,000. Urinalysis done today showed 3+ glucose, no protein, no leukocyte esterase. BMP done today morning showed sodium 136, potassium 4.9, chloride 106, bicarb 26, BUN 40, creatinine 1.6. Glucose 253. Calcium 9, magnesium 2.5. IMAGING: A renal ultrasound was done, which showed negative bilateral renal ultrasound prostate is enlarged. There is no hydronephrosis or hydroureter. CT of the chest was done on arrival, which showed subacute healing fracture involving the anterolateral fifth rib, mild left pleural thickening, small amount of loculated fissure fluid within the superior aspect of the oblique fissure, cardiomegaly and atherosclerosis and postoperative changes. CURRENT INPATIENT MEDICATIONS: Patient's medications were all reviewed by myself. He was getting normal saline at 120 cc an hour, Tylenol p.r.n., Proventil nebulizations, Mylanta, Amiodarone 400 mg p.o. twice a day, Amlodipine 10 mg p.o. daily, Vitamin C 500 mg p.o. daily, aspirin 81 mg p.o. daily, Cholestyramine 4 mg p.o. daily, Lovenox 40 mg q.h.s., Finasteride 5 mg p.o. every 48 hours, Gabapentin 200 mg p.o. three times a day, Insulin Lispro sliding scale. He is on Metoprolol 12.5 mg p.o. twice a day; I have increased the dose to 25 mg p.o. twice a day, Milk of Magnesia p.r.n., multivitamin one tablet daily. He is getting Quinapril 40 mg p.o. q.h.s. which I have stopped now, Flomax 0.4 mg p.o. q.h.s. and Vitamin D 1,000 units p.o. twice a day. ASSESSMENT AND PLAN: 1. Acute renal failure: Patient has nonoliguric renal failure; he was initially given Lasix and later on he is getting Quinapril which most likely is the cause of bump in the creatinine. I am going to hold the JEROME inhibitor at this time. He does not need any fluid hydration. Volume status is optimal and patient is drinking liquids orally. I.V. fluids have been stopped. No evidence of proteinuria or hematuria on urinalysis and bladder scan did not show any evidence of urinary retention. 2. Hypertension: Patient's blood pressure is controlled, however because of worsening renal failure, his Quinapril has been stopped. I have increased his Metoprolol dose to 25 mg p.o. twice a day. Continue Amlodipine 10 mg p.o. daily. I have started the patient on Hydralazine 25 mg p.o. three times a day and if needed given his systolic congestive heart failure, he will be given Isosorbide. 3. Heart failure with reduced ejection fraction: Patient has global left ventricular systolic dysfunction, global hypokinesis of the left ventricle, LVEF is 35 to 40%. He has bioprosthetic aortic valve and enlarged right ventricle, but with normal contractility. Once his renal function gets better, I will try to introduce Entresto in this patient. Quinapril has been stopped. 4. Multiple PVCs: Patient is currently being loaded with Amiodarone. Electrolytes are within the acceptable range. 5. BPH with low urinary tract symptoms: Patient's bladder scan did not show evidence of urinary retention. Renal ultrasound is within the acceptable range. Okay to continue Finasteride and Flomax at this time. Thank you for involving me in the care of this patient. I shall be happy to follow the patient along with you tomorrow morning.
[2021-03-24] MEDS: **hydrALAZINE HCL** 25 MG TAB PO SCH (23:15)
[2021-03-25] VITALS (8 sets, daily range): BP systolic 129–150; BP diastolic 62–95; PULSE 90
[2021-03-25 05:41] LABS: HEMOGLOBIN 12.3 g/dl (13.5-17.5); MEAN CORPUSCULAR HEMOGLOBIN 26.5 pg (27.0-33.0); MEAN CORPUSCULAR HGB CONC 30.8 g/dl (32.0-36.5); PLATELET COUNT, AUTOMATED 181 10^3/uL (150-450); RED BLOOD COUNT 4.65 10^6/uL (4.30-6.10); WHITE BLOOD COUNT 10.4 10^3/uL (4.0-10.0)
[2021-03-25 06:01] LABS: CREATININE FOR GFR 1.42 MG/DL (0.70-1.30); GLOMERULAR FILTRATION RATE 53.4 (>49); MAGNESIUM LEVEL 2.3 MG/DL (1.8-2.4); POTASSIUM SERUM 4.8 MEQ/L (3.5-5.1)
[2021-03-25] MEDS: SLF 3 ML SYR IV SCH ×3 (06:09→21:13)
[2021-03-25] MEDS: **hydrALAZINE HCL** 25 MG TAB PO SCH ×3 (06:09→21:11)
[2021-03-25] MEDS: ASPIRIN 81MG ENTERIC TABLET PO SCH (08:04)
[2021-03-25] MEDS: HumaLOG INSULIN (NovoLOG) PER UNIT SC SCH ×4 (08:04→21:13)
[2021-03-25] MEDS: GABAPENTIN 100 MG CAP PO SCH ×3 (08:05→21:12)
[2021-03-25] MEDS: ASCORBIC ACID 500 MG TAB PO SCH (08:05)
[2021-03-25] MEDS: VITAMIN D 1,000 INTERNATIONAL UNITS TABLET PO SCH ×2 (08:05→21:11)
[2021-03-25] MEDS: MULTIVITAMINS/MINERALS THERAP 1 TAB PO SCH (08:05)
[2021-03-25] MEDS: AMIODARONE 200 MG TAB (PACERONE) PO SCH (08:05)
[2021-03-25] MEDS ORDERED: DOCUSATE SODIUM 100MG CAPSULE PO PRN (08:10)
[2021-03-25] MEDS ORDERED: METOPROLOL TART 25 MG TABLET PO SCH (09:00)
--- NOTE | 2021-03-25 11:09 | IPNPDOC ---
Text Note Date of Service The patient was seen on 03/25/21. NOTE Subjective: Patient is a 65-year-old male presented to hospital after a 10-day history of chest pain to his left chest. Patient was found to multiple PVCs on his EKG and telemetry strip. Patient was also short of breath with exertion. This has improved. Patient is feeling otherwise well today. Patient thought he was can have a bowel movement yesterday but has not and is having some left lower quadrant abdominal pain. Patient is otherwise feeling well. Review of systems: General: Patient denies fevers HEENT: Patient denies headaches Cardiovascular: Patient denies chest pain Respiratory: Patient denies shortness of breath, cough GI: Patient reports left lower quadrant abdominal pain has been on the bowel movement yesterday. Patient denies nausea, vomiting, diarrhea : Patient denies increased frequency or pain with urination Extremities: Patient denies swelling or pain in extremities Neurological: Patient denies numbness or tingling in legs Physical exam: Vitals: See below General: Alert and oriented male patient who was sitting the bedside chair and w alked in the room. Patient not appear to be in any acute distress HEENT: Normocephalic, atraumatic, moist mucous membranes. Neck: No lymphadenopathy or thyromegaly Cardiac: Regular rate and rhythm, no murmurs, normal S1, normal S2 Pulm: Clear to auscultation bilaterally. No wheezes, rhonchi, rales Abd: Nondistended, mild tenderness palpation left lower quadrant, no rebound tenderness, normal bowel sounds Ext: No edema bilateral lower extremities Labs: See below Imaging: No new imaging has been performed Assessment/plan: 65-year-old male came the hospital with chest pain with negative cardiac markers x4 who appeared mildly fluid overloaded with ectopy on telemetry who now has an acute kidney injury. 1. Chest pain. Patient's chest pain is getting better. This is mostly secondary to subacute anterior lateral fifth rib fracture. Tylenol for pain control. Repeat cardiac markers have been negative. Continue to monitor patient's telemetry. 2. Acute kidney injury. Patient's creatinine has slightly improved from yesterday. This may be secondary to obstructive uropathy. Quinapril has been stopped. Once patient's creatinine comes back down tomorrow his baseline, Entresto will be started due to the patient's ejection fraction being 35 to 40% on most recent echocardiogram. 3. Heart failure with reduced ejection fractions. Patient's most recent echocardiogram shows an ejection fraction of 35 to 40%. Once the patient has his kidney function returned back to normal, Entresto can be started. 4. Multiple PVCs on telemetry. Patient was started on amiodarone and is still having monomorphic PVCs about 3 for every [address] De was consulted today and will see the patient today. 5. Diabetes mellitus. Sliding scale insulin with hypoglycemic protocol. 6. Hypertension. Home blood pressures been ordered. Quinapril has been stopped due to SULMA. Monitor blood pressures. 7. Hyperlipidemia. Patient cannot take statin due to allergies. 8. Coronary artery disease. Continue with metoprolol and baby aspirin DVT Prophylaxis: Lovenox Disposition: Pending clinical improvement VS,Anne, I+O VS, Anne, I+O Laboratory Tests 03/24/21 12:47 03/25/21 05:27 Vital Signs Date Time Temp Pulse Resp B/P (MAP) Pulse Ox O2 Delivery O2 Flow Rate FiO2 03/25/21 08:05 102 150/70 03/25/21 07:50 98.4 16 94 Room Air I&O- Last 24 Hours up to 6 AM 03/25/21 06:00 Intake Total 840 ml Output Total 3470 ml Balance -2630 ml EMELIA BELTRAN DO Mar 25, 2021 11:09
--- NOTE | 2021-03-25 12:36 | IPN ---
PROGRESS NOTE DATE: 03/25/2021 SUBJECTIVE: The patient was seen and examined at the bedside today morning. He is afebrile, hemodynamically stable. His intravenous (IV) fluids were stopped yesterday. His angiotensin converting enzyme (JEROME) inhibitor is also on hold. He has a good urine output. Creatinine is stable at 1.4 now. OBJECTIVE: VITAL SIGNS: Temperature 98.4 degrees Fahrenheit, blood pressure 150/70, pulse 102, respiratory rate 16, saturating 94% on room air. INTAKE AND OUTPUT: Urine output recorded as 1.3 liters yesterday, 3200 mL so far today since overnight. Weight in the bed scale is 95.2 kg. PHYSICAL EXAMINATION: GENERAL: Patient is awake, alert, oriented times three, laying in bed, no apparent distress. HEAD AND NECK EXAM: Extraocular muscles intact. Pupils equally round and reactive to light. Mucous membranes are moist. Neck is supple. There is no jugular venous distention (JVD). CARDIOVASCULAR: Irregularly irregular heart rate. No edema of the bilateral lower extremities. RESPIRATORY: Chest is clear to auscultation bilaterally. Bilateral equal air entry. No rales or rhonchi. ABDOMEN: Soft. Positive bowel sounds. Nontender. No organomegaly MUSCULOSKELETAL: No clubbing or cyanosis. Pulses 2+. CENTRAL NERVOUS SYSTEM (ENERGY INFRASTRUCTURE ENGINEER): No focal deficits. Power is 5/5 in all extremities. LABORATORY STUDIES: CBC showed WBC 10.4, hemoglobin 12.3, platelets 181. BMP showed sodium 137, potassium 4.8, chloride 108, bicarbonate 26, BUN 36, creatinine 1.4, it was 1.6 yesterday in the morning. CURRENT INPATIENT MEDICATIONS: Patient's medications were all reviewed by myself. His metoprolol was increased to 25 mg by mouth twice a day. He has also been started on hydralazine by mouth every 8 hours and angiotensin converting enzyme (JEROME) inhibitor was stopped. ASSESSMENT AND PLAN: 1. Acute renal failure superimposed on chronic kidney disease. Patient's angiotensin converting enzyme (JEROME) inhibitor was stopped. His IV fluids were also stopped. Renal function is stable and improving. 2. Hypertension. Patient's metoprolol was increased to 25 mg by mouth twice a day. However, he still has tachycardia. Metoprolol dose will be increased. Continue amlodipine 10 mg daily. Continue hydralazine 25 mg by mouth three times a day. 3. Heart failure with reduced ejection fraction. Patient has global left ventricular (LV) systolic dysfunction. LV ejection fraction is 35-40%. He has a bioprosthetic aortic valve as well. I am not giving the diuretic at this time because of acute renal failure. I would try to introduce Entresto in this patient if his function improves further. 4. Benign prostatic hypertrophy (BPH) with lower urinary tract infection symptoms. Continue current dose of finasteride and Flomax.
[2021-03-25] MEDS: CHOLESTYRAMINE 4 GM PWD PKT PO SCH (13:08)
[2021-03-25 14:02] LABS: CK-MB VALUE MASS 2.5 NG/ML (<3.6); CPK CREATINE PHOSPHOKINASE 50 U/L (39-308); TROPONIN I < 0.02 NG/ML (< 0.10)
--- NOTE | 2021-03-25 19:08 | DS.PDOC ---
Discharge Summary General Date of Admission Mar 22, 2021 at 09:44 Attending Physician: EMELIA BELTRAN DO Specialist/Consultants Involve: CARLO HDEZ MD Specialist/Consultants Involve Dr. De, Cardiology Discharge Summary PROCEDURES PERFORMED DURING STAY: None. ADMITTING DIAGNOSES: 1. Chest pain 2. Fluid overload 3. Multiple PVCs on telemetry 4. Diabetes mellitus 5. Hypertension 6. Hyperlipidemia 7. Coronary artery disease DISCHARGE DIAGNOSES: 1. Chest pain. 2. Acute kidney injury 3. Heart failure with reduced ejection fraction 4. Multiple PVCs on telemetry 5. Diabetes mellitus 6. Hypertension 7. Hyperlipidemia 8. Coronary artery disease COMPLICATIONS/CHIEF COMPLAINT: Chest Pain. HISTORY OF PRESENT ILLNESS: 65-year-old male who presented to the emergency department with a 10-day history of chest pain. Patient is also been complaining of some shortness of breath on exertion. Patient states he was able to walk down to his mailbox and back without any difficulty up in the last 10 days. Patient now says he gets winded walking up the slight hill, back to the mailbox. Patient says he has to recover for about 2 to 3 minutes prior to getting up and continue walking. Patient states he been having chest pain in the left side of his chest for the past 10 days. In the emergency department, patient was thought to be mildly fluid overloaded. Patient did not have any troponin elevation. Patient has a history of an aortic valve replacement so stat echocardiogram was ordered to make sure the valve was working properly. Patient was also found to have multiple PVCs seen on both EKG and telemetry. Patient was admitted into the hospital for work-up for multiple PVCs thought to be secondary to fluid overload status. HOSPITAL COURSE: Patient continued to have multiple PVCs on telemetry. Patient was given a dose of amiodarone which apparently was able to stop the PVCs for about 30 seconds according to nursing staff. Patient's power driven brush maker was contacted who recommended loading the patient with amiodarone. Patient received an additional 150 mg of amiodarone IV which did not change the PVCs. Patient received step 2 and step 3 of amiodarone loading IV. Patient continued to have multiple PVCs however, it appeared that the PVCs became monomorphic compared to the polymorphic PVCs that he was having before. Patient had 3 PVCs for every 2 heartbeats. Patient continue with oral amiodarone 4 mg twice daily. On hospitalization day 3, patient developed an acute kidney injury and nephrology was consulted. Patient was initially started on IV fluids but this was stopped by nephrology. Patient was thought to be over diuresed and/or having obstructive uropathy. Patient was bladder scanned and only showed 250 cc of urine which the patient was able to void entirely. Patient had a renal ultrasound which did not show any abnormalities. Patient was seen by Dr. De of cardiology who recommended the patient be transferred to [facility] for cardiac catheterization as he believes that the PVCs and the decrease in the patient's ejection fraction that was seen on echocardiogram may be secondary to progression of his coronary artery disease. Patient was started on Plavix and was premedicated due to his contrast allergy. [facility] called the progressive care unit at [facility] on 03/25/2021 stating that the patient will either be transferred overnight or tomorrow morning, 03/26/2021. Once a bed is available, patient will be transferred to [facility] DISCHARGE MEDICATIONS: Please see below. ALLERGIES: Please see below. PHYSICAL EXAMINATION ON DISCHARGE: VITAL SIGNS: Please see below. General: Alert and oriented male patient who was resting in bed when I walked in. Patient not appear to be in any acute distress. HEENT: Normocephalic, atraumatic, moist mucous membranes. Neck: No lymphadenopathy or thyromegaly Cardiac: Irregularly irregular rhythm with a nontachycardic rate, no murmurs, normal S1, normal S2 Pulm: Clear to auscultation bilaterally. No wheezes, rhonchi, rales Abd: Nondistended, nontender to palpation, normal bowel sounds Ext: No edema bilateral lower extremities LABORATORY DATA: Please see below. IMAGING: Chest x-ray performed on 03/22/2021 was reported to show stable chest, no acute abnormalities are identified CT scan of the chest performed without contrast on 03/22/2021 is reported to show subtle healing fracture involving the anterior lateral left fifth rib. Mild left pleural thickening/trace fluid as well as a small amount of loculated fissural fluid within the superior aspect of the oblique fissure. Mild pulmonary atelectasis/scar. No consolidation. Cardiomegaly with arthrosclerosis. Postoperative changes from sternotomy and cardiac surgery with aortic valve replacement. Probable postoperative change involving the ascending thoracic aorta. No thoracic aortic aneurysm. Renal ultrasound performed on 03/24/2021 is reported to show bilateral negative renal ultrasound. The prostate is enlarged. Echocardiogram performed on 03/22/2021 was reported to show moderate global left ventricular systolic function with mildly enlarged left ventricle and global hypokinesis. Assessment of the left ventricular diastolic function was limited in view of the underlying arrhythmias. Bioprosthetic valve noted in the aortic valve position. No aortic regurgitation detected. The gradient across the valve was normal. Most likely normal functioning bioprosthetic aortic valve. Mildly enlarged left atrium with mild annulus calcification moderate mitral regurgitation. Moderate tricuspid regurgitation with mildly enlarged right atrium. The right ventricle also appeared to be mildly enlarged, but was brittney well. Ejection fraction estimated to be at 35 to 40%. There was global hypokinesis. PROGNOSIS: Good ACTIVITY: As tolerated. DIET: 2 g sodium DISCHARGE PLAN: Transfer to [facility] DISPOSITION: . DISCHARGE INSTRUCTIONS: 1. Follow-up with providers at [facility] for cardiac catheterization. 2. Follow-up with Dr. De upon discharge from [facility]. ITEMS TO FOLLOWUP ON ON OUTPATIENT: 1. Follow-up results of cardiac catheterization. DISCHARGE CONDITION: Stable. TIME SPENT ON DISCHARGE: 35 minutes. Vital Signs/I&Os Vital Signs Date Time Temp Pulse Resp B/P (MAP) Pulse Ox O2 Delivery O2 Flow Rate FiO2 03/25/21 16:00 98.4 91 18 144/70 (94) 99 Room Air I&O- Last 24 Hours up to 6 AM 03/25/21 06:00 Intake Total 840 ml Output Total 3470 ml Balance -2630 ml Laboratory Data Labs 24H Laboratory Tests 2 03/24/21 20:17: Bedside Glucose (Misc Panel) 286H 03/25/21 05:27: Nucleated Red Blood Cells % (auto) 0.0, Anion Gap 3L, Glomerular Filtration Rate 53.4, Calcium Level 9.0, Magnesium Level 2.3 03/25/21 11:40: Bedside Glucose (Misc Panel) 327H 03/25/21 13:17: Total Creatine Kinase 50, Creatine Kinase MB 2.5, Creatine Kinase MB Relative Index 5.00H, Troponin I < 0.02 03/25/21 17:02: Bedside Glucose (Misc Panel) 319H CBC/BMP Laboratory Tests 03/25/21 05:27 FSBS Laboratory Tests Test 03/24/21 20:17 03/25/21 11:40 03/25/21 17:02 Range/Units Bedside Glucose (Misc Panel) 286 327 319 80-115 MG/DL Discharge Medications Scheduled Alpha Lipoic Acid (Alpha Lipoic Acid) 600 Mg Cap, 600 MG PO BID, (Reported) Amlodipine Besylate (Amlodipine Besylate) 10 Mg Tablet, 10 MG PO QHS, (Reported) Ascorbate Calcium (Vitamin C) 500 Mg Tablet, 500 MG PO DAILY, (Reported) Aspirin (Aspirin EC) 81 Mg Tablet.dr, 81 MG PO DAILY, (Reported) Canagliflozin (Invokana) 300 Mg Tablet, 300 MG PO DAILY, (Reported) Cholecalciferol (Vitamin D3) (Vitamin D3) 1,000 Unit Tablet, 1,000 UNITS PO BID, (Reported) Cholestyramine (with Sugar) (Cholestyramine Powder) 378 Gm Powder, 4 GM PO DAILY, (Reported) Exenatide Microspheres (Bydureon Bcise) 2 Mg/0.85 Ml Auto.injct, 2 MG SC 1XWK, (Reported) TAKES ON FRIDAYS Finasteride (Finasteride) 5 Mg Tablet, 5 MG PO Q2D, (Reported) AT BEDTIME Insulin Glargine,Hum.rec.anlog (Toujeo Solostar) 300 Unit/Ml Inj, 52 UNIT SC DAILY, (Reported) Insulin Lispro (Humalog Kwikpen U-200) 200 Unit/1 Ml Insuln.pen, 1 DOSE SC PC, (Reported) PER SLIDING SCALE Magnesium Oxide (Magnesium) 250 Mg Tablet, 250 MG PO QAM, (Reported) Magnesium Oxide (Magnesium) 250 Mg Tablet, 500 MG PO QHS, (Reported) Metformin HCl (Metformin HCl ER) 500 Mg Tab.er.24h, 1,000 MG PO BID, (Reported) Metoprolol Tartrate (Metoprolol Tartrate) 25 Mg Tablet, 12.5 MG PO BID, (Reported) Multivit-Min/FA/Lycopen/Lutein (Centrum Silver Ultra Men's Tab) 1 Each Tablet, 1 TAB PO DAILY, (Reported) Quinapril Hcl (Quinapril HCl) 40 Mg Tablet, 40 MG PO QHS, (Reported) Saw/Vit E/Sod Donna/Lyc/Beta/Pyg (Prostate Health Caplet) 1 Each Tablet, 1 TAB PO BID, (Reported) Tamsulosin HCl (Flomax) 0.4 Mg Capsule, 0.4 MG PO QHS, (Reported) Turmeric Root Extract (Turmeric) 500 Mg Capsule, 1,500 MG PO TID, (Reported) Scheduled PRN Acetaminophen (Tylenol Extra Strength) 500 Mg Tablet, 1,000 MG PO Q6H PRN for MILD PAIN (PS 1-4), (Reported) Albuterol Sulf (Albuterol Sulfate) 2.5 Mg/3 Ml Vial.neb, 2.5 MG INH QID PRN for SHORTNESS OF BREATH, (Reported) Cannabidiol (Cbd Oil) Btl, 1 DOSE PO TID PRN for MILD BREAKTHROUGH PAIN, (Reported) Allergies Coded Allergies: ibuprofen (Verified Allergy, Intermediate, hives, 03/22/21) iodine (Verified Allergy, Unknown, 03/22/21) shellfish derived (Verified Allergy, Unknown, 03/22/21) Rrudymq-Baq-Sxc Reductase Inhibitor (Verified Adverse Reaction, Mild, stomach pains and fatigue, 03/22/21) EMELIA BELTRAN DO Mar 25, 2021 19:08
--- NOTE | 2021-03-25 20:03 | ECGEPIP ---
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 First-degree AV block. Prominent precordial voltages with repolarization abnormalities; LVH Rule out prior IWMI. No significant change from 03/22/21 Electronically Signed on 03-25-2021 20:02:52 EDT by Raul Torres
--- NOTE | 2021-03-25 20:43 | CR ---
CONSULTATION DATE: 03/25/2021 REFERRING PROVIDER: Dr. David Qiu INDICATION: Shortness of breath, ventricular arrhythmias and chest pain. HISTORY OF PRESENT ILLNESS: Mr. Erwin is well known to me. He is a 65-year-old man who has a history of aortic valve replacement with bioprosthesis, coronary artery bypass surgery and 3-vessel stenting, last procedure was in 2018. He presented to [facility] on March 22 after gradually progressive exertional intolerance due to severe dyspnea. He typically would get short of breath walking to his mailbox which is about 300 feet. It is down from his house which is not difficult but returning back, he would feel completely exhausted and it would take him several minutes to catch his breath. There was associated sensation of palpitations. He also has had episodes of sharp, left-sided chest discomfort that was not reliably related to activity. Eventually, he came to the emergency room. He was kept for observation and admission because his telemetry monitoring revealed frequent episodes of ventricular arrhythmias. He has unusual pattern of sinus rhythm with wide QRS complex alternating with initially PVCs and then ventricular couplets and occasional brief runs of nonsustained ventricular tachycardia. Apparently this pattern was shown to Dr. Meyer who recommended to start him on amiodarone. He received initially IV loading and then infusion without any change in his pattern. He has been essentially bedridden in the hospital and consequently did not get much of walking done but at rest he has been relatively asymptomatic. Because of mild worsening of his renal function, he was seen by nephrology and his JEROME inhibitor was discontinued. There has been subsequent improvement and is back to baseline since. An echocardiogram was performed that revealed moderate left ventricular systolic dysfunction with EF estimated about 35-40% which is also a new finding. At bedside, the patient tells me that he has been feeling relatively well even though he did have yet another episode of sharp left-sided chest discomfort earlier this day. He has not done anything strenuous and walking from his bed to his bathroom which is only a few feet does not represent a problem. He does not have PND or orthopnea. He did not gain any weight. Actually, he lost about 50 lb since last summer which he ascribes to use of Bydureon and Invokana in his medication regimen. PAST MEDICAL HISTORY: 1. Coronary artery disease. He had single-vessel bypass performed at the time of his aortic valve replacement. Last cardiac catheterization in 2018 that was prompted by dyspnea led to 3-vessel stenting. The bypass was found to be closed. He has not had functional evaluation since. 2. Type [address] Jones. 3. Hypertension. 4. Dyslipidemia. 5. BPH. 6. Obesity with dramatic improvement as of lately. 7. Bipolar disorder. 8. History of aortic stenosis, status post aortic valve replacement with bioprosthesis and also history of replacement of the ascending aorta. 9. Narcolepsy. 10. History of CVA. PAST SURGICAL HISTORY: 1. History of aortic valve replacement and ascending aortic replacement in 2013. 2. Appendectomy. 3. History of colonic decompression. 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 He is and lives with his . He does not smoke. He does not drink alcohol. FAMILY HISTORY: Positive for coronary artery disease in his father who is also diabetic. Mother is also diabetic and has a history of CVA. ALLERGIES: HISTORY OF INTOLERANCE OR ALLERGY TO IODINE, SHELLFISH, STATINS, CRESTOR, TRULICITY AND ZETIA. REVIEW OF SYSTEMS: He denies any recent fever, chills, nausea, vomiting, no diarrhea. He has had chest discomfort that is sharp, left-sided and brought on by movement and taking deep breaths. He reports falling about two months ago after his dog pulled him suddenly and hitting his chest and there is dyspnea but no PND or orthopnea, no abdominal pain, no peripheral edema. He reports weight loss of approximately 50 lb over last year. The rest of review of systems is negative or as per HPI. PHYSICAL EXAMINATION: Mr. Erwin is a 65-year-old man who appears approximately his age or possibly even younger, no apparent distress. So last set of vital signs: Blood pressure 144/70. Heart rate has been in the 90s with this typical pattern of sinus rhythm with interspersed frequent PVCs and ventricular couplets. He is afebrile. Saturation is 99% on room air. His weight was recorded 95.2 kilograms. His JVP is not elevated. I do not appreciate carotid bruit. Lungs are clear to auscultation. Heart exam reveals regular rhythm. There is systolic murmur over the aortic valve that is about 1 or 2 intensity. No diastolic murmur, no gallop. Abdomen: Soft, nontender. There is prominent tenderness over left lower ribs. Peripheral edema is absent. Peripheral pulses are palpable bilaterally. LABORATORY DATA: Basic metabolic panel today reveals sodium 137, potassium 4.8, BUN 36, creatinine 1.4 for GFR 53. Glucose was 277, magnesium 2.3. Cardiac enzymes have been negative repeatedly. CBC: WBC count 10.4, hemoglobin 12.3, hematocrit 40, platelet count 181. INR was normal. Urine was 3+ positive for glucose but negative for protein. EKGs performed during this hospitalization all appear the same, revealing underlying sinus rhythm with ventricular rate in the 90s. There are nonspecific ST-T abnormalities on his [place] and sioux QRS complexes. There are frequent PVCs in a typical pattern that follows with single PVC between the first two beats alternating with interspersed ventricular couplets. Echocardiogram was interpreted by Dr. Meyer and revealed mildly dilated left ventricle with left ventricular systolic dysfunction and ejection fraction in the neighborhood of 35-40%. There was no hemodynamically significant valvular disease even though there were degenerative abnormalities of aortic bioprosthesis and also degenerative abnormalities of mitral valve with mitral annular calcifications but the degree of mitral insufficiency was not felt to be worse than moderate and the same applies for tricuspid insufficiency. ASSESSMENT AND PLAN: Mr. Erwin is a 65-year-old man who has type 2 diabetes, longstanding history of coronary artery disease with history of a CABG and subsequently coronary interventions to all three coronary arteries who presented with exertional intolerance due to dyspnea and palpitations. He also has chest discomfort that by history sounds noncardiac. Further evaluation revealed frequent ventricular ectopy including brief runs of nonsustained ventricular tachycardia, his echocardiogram revealed left ventricular systolic dysfunction which is new since 2018. Overall, I believe that in this situation, it is very likely that the mechanism of his problem is ischemic in nature and it is likely that there has been progression of underlying coronary artery disease. I am afraid that in the setting of ventricular arrhythmias, it is not safe to let patient go home. I will arrange for a cardiac catheterization and I already contacted Dr. Parisi at [facility] and will tentatively plan on transferring patient tomorrow morning. I will start him on Plavix tonight. Because he carries a history of allergy to IV contrast, I will premedicate him with Benadryl and prednisone. He is diabetic but has not been receiving metformin during this hospitalization. I explained the rationale to the patient and he is in full agreement with the plan. BRANDI
[2021-03-25] MEDS: diphenhydrAMINE 50MG CAP PO SCH (21:11)
[2021-03-25] MEDS: TAMSULOSIN 0.4 MG CAP PO SCH (21:11)
[2021-03-25] MEDS: FINASTERIDE 5 MG TAB PO SCH (21:12)
[2021-03-25] MEDS: ENOXAPARIN 40MG/0.4ML SYRINGE (J1650 PER 10MG) SC SCH (21:13)
[2021-03-25] MEDS: METOPROLOL TART 50 MG TAB PO SCH (21:19)
[2021-03-25] MEDS: predniSONE 20 MG TAB PO SCH (21:20)
[2021-03-26] VITALS: BP 132/68
[2021-03-26 04:00] VITALS: BP 128/62
[2021-03-26 04:00] LABS: HEMATOCRIT 39.9 % (42.0-52.0); HEMOGLOBIN 12.4 g/dl (13.5-17.5); MEAN CORPUSCULAR HEMOGLOBIN 26.4 pg (27.0-33.0); MEAN CORPUSCULAR HGB CONC 31.1 g/dl (32.0-36.5); MEAN CORPUSCULAR VOLUME 85.1 fl (80.0-96.0); PLATELET COUNT, AUTOMATED 164 10^3/uL (150-450); RED BLOOD COUNT 4.69 10^6/uL (4.30-6.10); WHITE BLOOD COUNT 13.3 10^3/uL (4.0-10.0)
[2021-03-26 04:27] LABS: CALCIUM LEVEL 9.3 MG/DL (8.8-10.2); CREATININE FOR GFR 1.34 MG/DL (0.70-1.30); GLOMERULAR FILTRATION RATE 57.1 (>49); MAGNESIUM LEVEL 2.1 MG/DL (1.8-2.4); POTASSIUM SERUM 5.9 MEQ/L (3.5-5.1)
[2021-03-26] MEDS: **hydrALAZINE HCL** 25 MG TAB PO SCH (05:38)
[2021-03-26] MEDS: SLF 3 ML SYR IV SCH (05:38)
[2021-03-26] MEDS: HumaLOG INSULIN (NovoLOG) PER UNIT SC SCH (07:52)
[2021-03-26 07:53] VITALS: BP 128/62
[2021-03-26] MEDS: MULTIVITAMINS/MINERALS THERAP 1 TAB PO SCH (07:53)
[2021-03-26] MEDS: GABAPENTIN 100 MG CAP PO SCH (07:53)
[2021-03-26] MEDS: METOPROLOL TART 50 MG TAB PO SCH (07:53)
[2021-03-26] MEDS: ASPIRIN 81MG ENTERIC TABLET PO SCH (07:53)
[2021-03-26] MEDS: ASCORBIC ACID 500 MG TAB PO SCH (07:54)
[2021-03-26] MEDS: diphenhydrAMINE 50MG CAP PO SCH (07:54)
[2021-03-26] MEDS: VITAMIN D 1,000 INTERNATIONAL UNITS TABLET PO SCH (07:54)
[2021-03-26] MEDS: predniSONE 20 MG TAB PO SCH (07:54)
[2021-03-26] MEDS ORDERED: DEXTROSE 50% 50 ML SYRINGE IV STA (07:55)
[2021-03-26] MEDS ORDERED: HumuLIN R (REGULAR) INSULIN (NovoLIN R) **100U/ML** PER UNIT IV STA (07:55)
[2021-03-26 08:00] VITALS: BP 153/67
[2021-03-26] MEDS ORDERED: CLOPIDOGREL 75 MG TAB PO SCH (09:00)
[2021-03-26] MEDS ORDERED: SOD POLYSTYRENE SULFONATE SUSP 15 GM/60 ML UD PO ONE (09:00)
--- NOTE | 2021-03-26 12:44 | IPN ---
NEPHROLOGY PROGRESS NOTE DATE: 03/26/2021 SUBJECTIVE: The patient was seen and examined at the bedside today morning. He was getting ready to be transferred to [facility]. He told me that he was evaluated by cardiology and cardiology recommended that his latest echocardiogram shows low ejection fraction and wall motion abnormalities which is likely secondary to ischemia and he is being transferred to [facility] for cardiac catheterization. Patient's renal function is otherwise stable. His blood pressures are optimized and surprisingly his potassium level has bumped from 4.8 to 5.9 today. Patient is not on JEROME or ARB at this time. OBJECTIVE: VITAL SIGNS: Temperature 99.3 degrees Fahrenheit, blood pressure 133/67, pulse 46, respiratory rate 19, saturating 98% on room air. INTAKE AND OUTPUT: Urine output recorded as 5.2 liters yesterday and 800 mL so far today since overnight. Weight in the bed scale is 95.5 kg. PHYSICAL EXAMINATION: GENERAL APPEARANCE: Patient is awake, alert, oriented x3, laying in bed in no apparent distress. HEAD/NECK: Extraocular muscles intact. Pupils equally round and reactive to light. Mucous membranes are moist. Neck is supple. There is no significant JVD. CVS: S1, S2, irregularly irregular heart rate. No significant edema of lower extremities. RESPIRATORY: Chest is clear to auscultation bilaterally. Bilateral equal air entry. No rales or rhonchi. ABDOMEN: Soft, positive bowel sounds, nontender. No organomegaly. MUSCULOSKELETAL: No clubbing or cyanosis. Pulses are 2+. SWITCHBOARD RECEPTIONIST: No focal deficits. Power is 5/5 in all extremities. LAB REVIEW: CBC showed WBC 13.3, hemoglobin 12.4, platelets 164,000. BMP showed sodium 138, potassium 5.9, chloride 109, bicarb 22, BUN 39, creatinine 1.3; it was 1.4 yesterday. Magnesium 2.1. CURRENT INPATIENT MEDICATIONS: Patient's medications were all reviewed by myself. No other significant change in the medications today as compared with yesterday except that he has been started on Plavix 75 mg p.o. daily and he was given one dose of Kayexalate 30 grams p.o. ASSESSMENT AND PLAN: 1. Acute renal failure superimposed on chronic kidney disease: Patient's JEROME inhibitors were stopped. His renal function is gradually improving. Creatinine is down to 1.3 today. 2. Hypertension: Blood pressure is controlled with current dose of Metoprolol, Hydralazine and Amlodipine. If needed Isosorbide can be added. Entresto can be added sometime in the future once his renal function comes back to baseline. 3. Heart failure with reduced ejection fraction: Patient has global LV systolic dysfunction. He was seen by cardiology and they are recommending getting a cardiac catheterization and he is being transferred to [facility]. Patient also reports getting chest pains as well. 4. Hyperkalemia: Patient was given a dose of Kayexalate, further management will be done at [facility].
[2021-03-27 10:09] LABS: Lyme Disease IgG/IgM Antibodie <0.91 ISR (0.00-0.90); Lyme Disease IgM Ab Quantitati <0.80 index (0.00-0.79)
== END 2021-03-26 09:38 | disposition short-term general hospital (02) | DRG 309 ==
LOC: M ED 04:45 → M ED INP 09:44 → ENRESERV 14:30 → M PCU 15:57
PROVIDERS: ADMIT Family Medicine; ATTEND Family Medicine
DX: I49.3 Ventricular premature depolarization (principal); N17.9 Acute kidney failure, unspecified; E78.5 Hyperlipidemia, unspecified; I25.10 Atherosclerotic heart disease of native coronary artery without angina pectoris; E11.9 Type 2 diabetes mellitus without complications; I50.9 Heart failure, unspecified; Z91.041 Radiographic dye allergy status; Z79.4 Long term (current) use of insulin; Z79.899 Other long term (current) drug therapy; Z79.82 Long term (current) use of aspirin; Z88.6 Allergy status to analgesic agent; Z88.8 Allergy status to other drugs, medicaments and biological substances; Z91.013 Allergy to seafood; F31.9 Bipolar disorder, unspecified; N40.0 Benign prostatic hyperplasia without lower urinary tract symptoms; I35.0 Nonrheumatic aortic (valve) stenosis; Z95.2 Presence of prosthetic heart valve; I11.0 Hypertensive heart disease with heart failure; Z95.1 Presence of aortocoronary bypass graft; E87.5 Hyperkalemia